=== PATIENT | female | born 1945 | race Caucasian/White ===

== ENCOUNTER → 2020-10-20 | Outpatient (CLI) | payer MEDICARE ==
--- NOTE | 2020-10-20 13:11 | Diagnostic Imaging Report ---
INDICATION: GREATER TROCHANTERIC BURSITIS OF RIGHT HIP TECHNIQUE: 2 views of the right hip. CORRELATION STUDY: None FINDINGS: Mild joint space narrowing through the hip. This is most pronounced along the central and inferior aspect. Mild osteophyte formation of the acetabulum. There is slight osteophyte formation greater trochanter. No acute fracture. Slight loss of the normal rounded contour of the superior medial aspect of femoral head likely chronic. Mild enthesopathy about the right iliac crest. IMPRESSION: 1. Negative for acute bony abnormality of the right hip. Mild multifocal degenerative changes about the hip are present. Dictated by: Dictated on workstation # [id number]
== END ==
LOC: RAD FS 11:04
PROVIDERS: ATTEND Family Medicine
DX: M16.11 Unilateral primary osteoarthritis, right hip (principal); M70.61 Trochanteric bursitis, right hip
CPT/HCPCS: 73502

== ENCOUNTER → 2020-11-10 | Outpatient (CLI) | payer MEDICARE ==
--- NOTE | 2020-11-10 18:15 | Diagnostic Imaging Report ---
EXAMINATION: Abdomen 1 view HISTORY: Diarrhea. COMPARISON: None available. FINDINGS: Bowel gas pattern is normal. No dilated bowel is seen. Right hemidiaphragm and lower pelvis are excluded from the [id number]-sx-lerf. No free air is seen within the jeuhs-bq-fllo. IMPRESSION: 1. Normal bowel gas pattern. Dictated by: Dictated on workstation # [id number]
== END ==
LOC: RAD FS 14:25
PROVIDERS: ATTEND Family Medicine
DX: R19.7 Diarrhea, unspecified (principal)
CPT/HCPCS: 74018

== ENCOUNTER → 2020-12-01 | Outpatient (CLI) | payer MEDICARE ==
--- NOTE | 2020-12-01 12:15 | Diagnostic Imaging Report ---
PROCEDURE: CT abdomen and pelvis without contrast. TECHNIQUE: Multiple contiguous axial images were obtained through the abdomen and pelvis without the use of intravenous contrast. Auto Exposure Controls were utilized during the CT exam to meet ALARA standards for radiation dose reduction. INDICATION: Abdominal pain Study is limited by motion. There are several low-density nodules in the liver with the largest in the posterior aspect of right lobe reaching 1.3 cm in diameter. Assessment of the gallbladder is limited however there is no significant distention or pericholecystic fluid. No pancreatic abnormality identified. There is mild enlargement of left adrenal gland which could be due to hyperplasia. Right adrenal gland is unremarkable in appearance. There may be a subcentimeter angiomyolipoma in the lateral aspect of the right kidney. There is no hydronephrosis or solid renal mass identified. No pancreatic mass or ductal dilatation is identified. There is an approximate 4 cm nodular focus along the posterior aspect of the upper gastric body. No free fluid is seen within the abdomen or pelvis. There is no focal inflammation. There is mild aortoiliac atherosclerotic calcification. Numerous diverticula are seen in the sigmoid colon. Unopacified bladder is unremarkable. There is no evidence of pathologically enlarged adenopathy. Note is made of mild compression fracture deformity of L4 vertebral body with sclerosis in the inferior endplate indicating possible old nature. IMPRESSION: No definite acute abnormality seen on limited study. There is a 4 cm nodular focus along the posterior aspect of the upper stomach. Considerations include leiomyoma or intestinal stromal tumor. This could be further assessed with endoscopy with possible biopsy if indicated. Dictated by: Dictated on workstation # [id number]
== END ==
LOC: RAD FS 11:45
PROVIDERS: ATTEND Family Medicine
DX: R63.4 Abnormal weight loss (principal); K31.89 Other diseases of stomach and duodenum
CPT/HCPCS: 74176

== ENCOUNTER 2020-12-08 08:02 | Outpatient (RCR) | payer MEDICARE ==
[~2020-12-08] VITALS: Ht 157.5 cm; Wt 59.5 kg
[2020-12-08] MEDS ORDERED: FLUO20CA46 PO (09:55)
[2020-12-08] MEDS ORDERED: BETA1TAB15 PO (09:55)
[2020-12-08] MEDS ORDERED: RISP0.5T65 PO (09:55)
[2020-12-08] MEDS ORDERED: ATOR40TA70 PO (09:55)
[2020-12-08] MEDS ORDERED: LORA-405 PO (09:55)
[2020-12-08] MEDS ORDERED: OMEP20TA7 PO (09:55)
[2020-12-08] MEDS ORDERED: FENO145T26 PO (09:55)
[2020-12-08] MEDS ORDERED: ATEN50TA PO (09:55)
== END 2020-12-08 12:07 | disposition home or self-care (01) ==
LOC: PREOP 08:02 → EDSTATUS 12:00 → PREOP 12:07
PROVIDERS: ATTEND Surgery
DX: Z01.818 Encounter for other preprocedural examination (principal)

== ENCOUNTER → 2020-12-10 | Outpatient (CLI) | payer MEDICARE ==
[~2020-12-10] MED LIST: ATEN50TA PO; ATOR40TA70 PO; BETA1TAB15 PO; FENO145T26 PO; FLUO20CA46 PO; LORA-405 PO; OMEP20TA7 PO; RISP0.5T65 PO
== END ==
LOC: LAB FS 10:10
PROVIDERS: ATTEND Surgery
DX: Z01.812 Encounter for preprocedural laboratory examination (principal); K62.89 Other specified diseases of anus and rectum; R93.5 Abnormal findings on diagnostic imaging of other abdominal regions, including retroperitoneum; Z20.822 Contact with and (suspected) exposure to COVID-19
CPT/HCPCS: 87635

== ENCOUNTER 2020-12-12 11:11 | Day surgery (SDC) | payer MEDICARE ==
[~2020-12-12] VITALS: Ht 157.5 cm; Wt 59.5 kg
[2020-12-12] MEDS ORDERED: LACTATED RINGERS 1,000 ML IV ONE (11:21)
[2020-12-12] MEDS ORDERED: LACTATED RINGERS 1,000 ML IV STA (11:48)
[2020-12-12] MEDS ORDERED: PROPOFOL INJECTION 50 ML IV ONE (11:54)
[2020-12-12] MEDS ORDERED: ESMOLOL 100 MG/10 ML (BREVIBLOC) VIAL ONE (11:58)
[2020-12-12] MEDS ORDERED: HURRICAINE EXT TUBE (BENZOCAINE) XX PRN (12:00)
--- NOTE | 2020-12-12 12:01 | Progress Note-Pre Operative ---
Pre-Operative Progress Note H&P Reviewed The H&P was reviewed, patient examined and no changes noted. Time Seen by Provider: 11:30 Date H&P Reviewed: Dec 12, 2020 Time H&P Reviewed: 11:30 Pre-Operative Diagnosis: Weight loss, rectal pain, GERD CHAS CHAN DO Dec 12, 2020 12:01
[2020-12-12 12:18] VITALS: BP 138/92
[2020-12-12 12:50] VITALS: BP 117/58
[2020-12-12 12:55] VITALS: BP 112/63
[2020-12-12 13:00] VITALS: BP 157/76
--- NOTE | 2020-12-12 13:00 | Anesthesia-General Post-Op ---
MAC Patient Condition Mental Status/LOC: Same as Preop Cardiovascular: Satisfactory Nausea/Vomiting: Absent Respiratory: Satisfactory Pain: Controlled Complications: Absent Post Op Complications Complications None Follow Up Care/Instructions Patient Instructions None needed. Anesthesiology Discharge Order Discharge Order Patient is doing well, no complaints, stable vital signs, no apparent adverse anesthesia problems. No complications reported per nursing. CARLENE VINSON CRNA Dec 12, 2020 13:00
--- NOTE | 2020-12-12 13:16 | Progress Note-Post Operative ---
Post-Operative Progess Note Surgeon (s)/Flame Annealing Machine Operator (s) Surgeon CHAS CHAN DO Flame Annealing Machine Operator: none Pre-Operative Diagnosis Weight loss, rectal pain, GERD Post-Operative Diagnosis Gastritis Hiatal hernia Rodriguez's esophagus Colon Polyps Diverticulosis internal hemorrhoids Procedure & Operative Findings Date of Procedure 12/12/20 Procedure Performed/Findings EGD with bx Colon with snare Anesthesia Type IV sedation by COMPENSATION INTERN Estimated Blood Loss Estimated blood loss (mL): scant Specimens/Packing Specimens Removed antral bx body of stomach bx ?? ulcer bx GE jxn bx Esophageal bx Transverse colon polyp x 2 ascending colon polyp sigmoid polyp CHAS CHAN DO Dec 12, 2020 13:16
--- NOTE | 2020-12-12 13:17 | Endoscopy Discharge Instruct ---
Endo Procedure/Findings Findings 1.: Hiatal Hernia, Gastritis 2.: Rodriguez's Esophagus 3.: Polyp 4.: Diverticulosis, Internal Hemorrhoids Discharge Instructions - Activity: You might feel a little sleepy until tomorrow. This is due to the medicine you received to relax you. Until tomorrow, you should: NOT drive a car, operate machinery or power tools. NOT drink any alcoholic beverages. NOT make any important decisions or sign importortant papers. Do not return to work until tomorrow, unless otherwise instructed. Resume previous activities tomorrow. Diet: Start by taking liquids. If you tolerate liquids, advance to solid food. 1.: EGD in 6-8 weeks 2.: Colonoscopy in 1 year Notify Physician - If you experience excessive bleeding, unusual abdominal pain, fever, or chest pain, contact your doctor immediately. CHAS CHAN DO Dec 12, 2020 13:17
[2020-12-12 13:30] VITALS: BP 140/82
[2020-12-12 13:40] VITALS: BP 140/82
--- NOTE | 2020-12-13 00:56 | OPERATIVE REPORT ---
DATE OF SERVICE: PREOPERATIVE DIAGNOSES: Rectal pain, weight loss, upper abdominal pain and questionable mass seen on CAT scan behind the stomach. POSTOPERATIVE DIAGNOSES: Gastritis, questionable gastric polyp, large hiatal hernia, Rodriguez's esophagus. She also had colon polyps, diverticula and internal hemorrhoids. PROCEDURE: 1. Colonoscopy with snare polypectomy. 2. EGD with biopsy. SURGEON: Vikram Williamson DO OPERATOR/ASSISTANT FOREMAN: None. ANESTHESIA: IV sedation by the DRAPERY AND UPHOLSTERY MEASURER. SPECIMEN: Biopsy from the antrum, biopsy of body of stomach, questionable gastric polyp, biopsy from the GE junction and biopsy from the esophagus as well as two polyps in transverse colon, one from the ascending colon and one from the sigmoid colon. BLOOD LOSS: Scant. FLUIDS: Per anesthesia. POSTOPERATIVE CONDITION: Stable. INDICATION FOR PROCEDURE: The patient is a 74-year-old female who has been having rectal pain, weight loss as well as some upper abdominal pain and a questionable mass seen on CT near the stomach. FINDINGS: The patient had multiple polyps in the colon, one rather large one, she had lot of diverticula and internal hemorrhoids in the stomach. She had some gastritis as well as a large hiatal hernia and what looked like a possible polyp in the stomach and then Rodriguez's esophagus. PROCEDURE NOTE: After informed consent was obtained, the patient was brought to the endoscopy suite, placed in bed in left lateral decubitus position. She was administered IV sedation by the DRAPERY AND UPHOLSTERY MEASURER who then monitored her vitals the entire time, heart rate, blood pressure and pulse ox. We started with the colonoscopy. Placed the scope in, pushed all the way to [address] in, noted a polyp in the transverse colon, did a snare polypectomy and then just a few centimeters on encountered another polyp and did another snare polypectomy. Pushed all the way into the cecum, took a picture of appendiceal orifice, noted the ileocecal valve and what looked like another diverticula here and then just outside the cecum, saw another polyp in the ascending colon, took a picture of this and then did a snare polypectomy, then insufflating to just make sure we looked at all the peck circumferentially. Pulled the scope up into in the ascending colon to the hepatic flexure, then down the transverse colon, splenic flexure, into the descending colon, again saw a lot of diverticula and then into the sigmoid. In the sigmoid, saw a large polyp, able to get the snare around this and then had to suction this up and pulled the scope all the way out to get the polyp out and then pushed the scope back in and then continued down into the rectum, retroflexed in the rectal vault, saw some minimal internal hemorrhoids, took a picture of this and then removed the scope. Changed gloves, changed scopes. Went up and started with the EGD, placing scope down the mouth through the esophagus and into the stomach, noted some gastritis, pushed into the duodenum. Duodenum looked fine. Pulled back, did a biopsy of the antrum. Retroflexed the scope, saw a large hiatal hernia and then did a biopsy of body of stomach and then when I un-retroflex, saw what looked like a possible polyp and did a biopsy of this. Pulled the scope into the GE junction, did a biopsy and then pulled it a little bit further up and felt pretty severe changes in the esophagus, this looked like Rodriguez's esophagus, took pictures and then did a biopsy. The upper portion of the esophagus looked fine, pulled the scope out. The patient tolerated the procedure, recovered in endoscopy suite. Job ID: [id number] DocumentID: [id number] Dictated Date: 12/12/2020 17:26:07 Publication Director Date: 12/13/2020 00:55:15 Dictated By: VIKRAM WILLIAMSON DO
== END 2020-12-12 13:40 | disposition home or self-care (01) ==
LOC: ENDO 11:11
PROVIDERS: ATTEND Surgery
DX: K44.9 Diaphragmatic hernia without obstruction or gangrene (principal); D12.3 Benign neoplasm of transverse colon; D12.2 Benign neoplasm of ascending colon; D12.5 Benign neoplasm of sigmoid colon; K29.50 Unspecified chronic gastritis without bleeding; K22.70 Barrett's esophagus without dysplasia; K57.30 Diverticulosis of large intestine without perforation or abscess without bleeding; K64.8 Other hemorrhoids; F17.210 Nicotine dependence, cigarettes, uncomplicated; K62.89 Other specified diseases of anus and rectum; Z79.899 Other long term (current) drug therapy; Z88.0 Allergy status to penicillin; Z91.041 Radiographic dye allergy status
CPT/HCPCS: 88305; 88342

== ENCOUNTER → 2021-01-17 | Outpatient (CLI) | payer MEDICARE | LOC: LAB FS 10:02 | PROVIDERS: ATTEND Surgery | DX: Z01.89 Encounter for other specified special examinations (principal); B96.81 Helicobacter pylori [H. pylori] as the cause of diseases classified elsewhere | CPT/HCPCS: 36415; 87338 ==

== ENCOUNTER → 2021-02-02 | Outpatient (CLI) | payer MEDICARE | LOC: LAB FS 10:00 | PROVIDERS: ATTEND Orthopaedic Surgery Orthopaedic Trauma | DX: Z01.812 Encounter for preprocedural laboratory examination (principal) | CPT/HCPCS: 87635 ==

== ENCOUNTER 2021-04-06 10:04 | Emergency (ER) | payer MEDICARE ==
[~2021-04-06] VITALS: Ht 157.5 cm; Wt 57.6 kg
[2021-04-06 10:09] VITALS: BP 118/47
--- NOTE | 2021-04-06 10:16 | ED GI ---
General Chief Complaint: Abdominal/GI Problems Stated Complaint: BOWEL CONSTIPATION History of Present Illness Date Seen by Provider: Apr 06, 2021 Time Seen by Provider: 10:12 Initial Comments 75-year-old female presents with constipation. Patient reports that she had a back surgery on her L4 vertebrae 1 week ago and has been taking a lot of pain medication. That she is also taken a Dulcolax oral suppository. She reports however she is not had a bowel movement due to a hard stool since her surgery. She is complaining of some rectal pain and fullness along with some abdominal pain. She has no vomiting. Patient also would like to have her chest dressing evaluated and changed if needed. She denies fevers chills or other systemic complaints. Allergies and Home Medications Allergies Coded Allergies: iodine (Unverified Allergy, Intermediate, 12/08/20) Penicillins (Unverified Allergy, Mild, 12/08/20) Home Medications Atenolol 50 Mg Tablet, 50 MG PO DAILY, (Reported) Atorvastatin Calcium 40 Mg Tablet, 40 MG PO DAILY, (Reported) Fenofibrate Nanocrystallized 145 Mg Tablet, 145 MG PO DAILY, (Reported) Fluoxetine HCl 20 Mg Capsule, 20 MG PO DAILY, (Reported) Lorazepam 1 Mg Tablet, 1 MG PO BID, (Reported) Omeprazole 20 Mg Tablet.dr, 20 MG PO DAILY, (Reported) Risperidone 0.5 Mg Tablet, 0.5 MG PO BID, (Reported) Vit A/Vit C/Vit E/Zinc/Copper 1 Each Tablet, 1 EACH PO BID, (Reported) Patient Home Medication List Home Medication List Reviewed: Yes Review of Systems Review of Systems Constitutional: No chills, No fever EENTM: No Symptoms Reported Respiratory: No Symptoms Reported Cardiovascular: No Symptoms Reported Gastrointestinal: See HPI, Constipated Genitourinary: No Symptoms Reported Musculoskeletal: no symptoms reported Skin: no symptoms reported Psychiatric/Neurological: No Symptoms Reported Endocrine: No Symptoms Reported Past Krqfeil-Nynkke-Xlcmhm Hx Seasonal Allergies Seasonal Allergies: No Past Medical History Surgeries: Yes Oophorectomy Respiratory: No Cardiac: Yes Hypertension Neurological: No Female Reproductive Disorders: Ovarian Cyst Genitourinary: No Gastrointestinal: Yes (WT. LOSS, RECTAL PAIN/BLEEDING) Musculoskeletal: No Endocrine: No HEENT: No Cancer: No Psychosocial: Yes Anxiety, Depression Integumentary: No Blood Disorders: No Physical Exam Vital Signs Capillary Refill : Height/Weight/BMI Height: '" Weight: lbs. oz. kg; 23.98 BMI Method: General Appearance: no apparent distress HEENT: PERRL/EOMI Neck: full range of motion, supple Respiratory: lungs clear, normal breath sounds Cardiovascular: normal peripheral pulses, regular rate, rhythm Gastrointestinal: non tender, soft Rectal: other (Declined following manual disimpaction by the nurse) Extremities: normal range of motion, non-tender Back: other (Dressing intact clean and dry over incision with no obvious complications, patient with back brace when not having dressing evaluated) Neurologic/Psychiatric: alert, normal mood/affect, oriented x 3 Progress/Results/Core Measures Results/Orders My Orders Orders - AR BONILLA DO Bisacodyl Suppository (Dulcolax Supposit (04/06/21 10:21) Na Phos/Na Biphos Enema (Fleet Enema Justin (04/06/21 10:21) Progress Progress Note : Progress Note Patient had a digital disimpaction by the nurse. She then was able to have a very large bowel movement after the impaction was removed. Patient feels significantly better. Following the bowel movement, patient was offered x-ray to ensure no other abdominal complications but declined. Patient is feeling significantly better. Her wounds were examined with clean dry intact dressing with no need for further treatment. Patient stable and ready to be discharged home. I did recommend she add either MiraLAX or milk of magnesium to her stool regiment along with plenty of fluids and ambulation. She is to follow-up with her back surgeon as instructed per them. Departure Impression Primary Impression: Constipation Qualified Codes: K59.03 - Drug induced constipation Additional Impression: Encounter for wound re-check Disposition: HOME, SELF-CARE Condition: Stable Departure-Patient Inst. Referrals: SELF,BECCA COLBY (PCP/Family) Primary Care Physician Patient Instructions: Constipation, Adult (DC), Dealing with Constipation from the Drugs You Take Add. Discharge Instructions: Follow-up with your surgeon as directed per them Add MiraLAX or milk of magnesia as directed on package, frequent ambulation and drink plenty of fluids. Follow-up with your primary care provider in the next couple days for recheck of symptoms and continuation of care All discharge instructions reviewed with patient and/or family. Voiced understanding. AR BONILLA DO Apr 06, 2021 10:16
[2021-04-06] MEDS ORDERED: BISACODYL 10 MG SUPP (DULCOLAX) ONE (10:21)
[2021-04-06] MEDS ORDERED: FLEET ENEMA ADULT 1 EA BTL ONE (10:21)
== END 2021-04-06 11:00 | disposition home or self-care (01) ==
LOC: EDUNIT# 10:04 → ER FS 10:06
DX: K59.00 Constipation, unspecified (principal); I10 Essential (primary) hypertension; F41.9 Anxiety disorder, unspecified; F32.9 Major depressive disorder, single episode, unspecified; Z98.890 Other specified postprocedural states; Z79.899 Other long term (current) drug therapy; Z48.01 Encounter for change or removal of surgical wound dressing
CPT/HCPCS: 99282

== ENCOUNTER 2021-04-11 16:00 | Inpatient (IN) | payer MEDICARE ==
[~2021-04-11] VITALS: Ht 157.5 cm; Wt 66.2 kg
[2021-04-11] MEDS ORDERED: LACTATED RINGERS IV PRN (16:15)
[2021-04-11] MEDS ORDERED: ACETAMINOPHEN 500 MG TAB (TYLENOL) PO PRN (16:15)
--- NOTE | 2021-04-11 16:19 | ED General ---
General Chief Complaint: General Problems/Pain Stated Complaint: POST OP,LETHARGY,NO APPETITE Source of Information: Patient Exam Limitations: No Limitations (ISELA STOREY APRN) History of Present Illness Date Seen by Provider: Apr 11, 2021 Time Seen by Provider: 16:17 Initial Comments To ER by private vehicle accompanied by family with reports that she had low back surgery on 04/06/[address] William Reece at [facility]. She has not been eating or drinking well. Timing/Duration: 1-2 Days Severity: Moderate (ISELA STOREY APRN) Allergies and Home Medications Allergies Coded Allergies: iodine (Unverified Allergy, Intermediate, 12/08/20) Penicillins (Unverified Allergy, Mild, 12/08/20) Home Medications Atenolol 50 Mg Tablet, 50 MG PO DAILY, (Reported) Atorvastatin Calcium 40 Mg Tablet, 40 MG PO DAILY, (Reported) Fenofibrate Nanocrystallized 145 Mg Tablet, 145 MG PO DAILY, (Reported) Fluoxetine HCl 20 Mg Capsule, 20 MG PO DAILY, (Reported) Lorazepam 1 Mg Tablet, 1 MG PO BID, (Reported) Omeprazole 20 Mg Tablet.dr, 20 MG PO DAILY, (Reported) Risperidone 0.5 Mg Tablet, 0.5 MG PO BID, (Reported) Vit A/Vit C/Vit E/Zinc/Copper 1 Each Tablet, 1 EACH PO BID, (Reported) Patient Home Medication List Home Medication List Reviewed: Yes (ISELA STOREY APRN) Review of Systems Review of Systems Constitutional: see HPI, malaise, weakness EENTM: see HPI Respiratory: no symptoms reported Cardiovascular: no symptoms reported Genitourinary: no symptoms reported Musculoskeletal: no symptoms reported Skin: no symptoms reported Psychiatric/Neurological: No Symptoms Reported Hematologic/Lymphatic: No Symptoms Reported (ISELA STOREY APRN) Past Rcghfkw-Tlzfyd-Szyqfw Hx Seasonal Allergies Seasonal Allergies: No (ISELA STOREY APRN) Past Medical History Surgeries: Yes Oophorectomy Respiratory: No Cardiac: Yes Hypertension Neurological: No Female Reproductive Disorders: Ovarian Cyst Genitourinary: No Gastrointestinal: Yes (WT. LOSS, RECTAL PAIN/BLEEDING) Musculoskeletal: No Endocrine: No HEENT: No Cancer: No Psychosocial: Yes Anxiety, Depression Integumentary: No Blood Disorders: No (ISELA STOREY APRN) Physical Exam Vital Signs Vital Signs - First Documented 04/11/21 16:20 Temp 38.7 Pulse 88 Resp 20 B/P (MAP) 130/66 (87) Pulse Ox 93 (ALEX ROOT MD) Vital Signs Capillary Refill : (ISELA STOREY APRN) Height, Weight, BMI Height: '" Weight: lbs. oz. kg; 23.00 BMI Method: General Appearance: No Apparent Distress, WD/WN, Thin, Other (Febrile at 101.6. Tachypneic with a respiratory rate in the 30s. Oxygen saturation 95% room air. Heart rate 99 blood pressure 118/61. She is delirious, thinks the month is December. However she does know that she is at the hospital in [place].) Eyes: Bilateral Eye Normal Inspection, Bilateral Eye PERRL, Bilateral Eye EOMI Neck: Full Range of Motion, Normal Inspection Respiratory: No Accessory Muscle Use, No Respiratory Distress, Other (Tachypnea) Cardiovascular: Regular Rate, Rhythm, Normal Peripheral Pulses Gastrointestinal: Normal Bowel Sounds, Non Tender, Soft Back: Other (incision dressings clean dry intact no drainage no erythema dressings clean. ) Extremity: Normal Capillary Refill, Normal Inspection Neurologic/Psychiatric: Alert, Oriented x3 Skin: Normal Color, Warm/Dry (ISELA STOREY APRN) Focused Exam Sepsis Stage: Sepsis Possible Source: Genitouriary (ISELA STOREY APRN) Lactate Level 04/11/21 16:20: Lactic Acid Level 1.45 (ALEX ROOT MD) Time of Focused Exam: 18:15 Respiratory: Normal Breath Sounds, No Accessory Muscle Use Cardiovascular: Regular Rate, Rhythm, Normal Peripheral Pulses Capillary Refill: Less Than 3 Seconds Skin: normal color, warm/dry (ISELA STOREY APRN) Lactic Acid Level Laboratory Tests Test 04/11/21 16:20 Lactic Acid Level 1.45 MMOL/L (0.50-2.00) (ALEX ROOT MD) Within 3hrs of presentation: Admin fluids, Admin ABX, Blood cultures prior to ABX's, Focus exam, Lactate level (ISELA STOREY APRN) Progress/Results/Core Measures Suspected Sepsis SIRS Temperature: Pulse: Respiratory Rate: Laboratory Tests 04/11/21 16:20: White Blood Count 13.6H Blood Pressure / Mean: 04/11/21 16:20: Lactic Acid Level 1.45 Laboratory Tests 04/11/21 16:20: Creatinine 0.77, INR Comment 1.6H, Platelet Count 345, Total Bilirubin 0.7 (ISELA STOREY APRN) Results/Orders Lab Results Laboratory Tests Test 04/11/21 16:14 04/11/21 16:20 04/11/21 16:53 Range/Units SARS-CoV-2 RNA (RT-PCR) Not Detected Not Detecte White Blood Count 13.6 H 4.3-11.0 10^3/uL Red Blood Count 3.07 L 3.80-5.11 10^6/uL Hemoglobin 9.3 L 11.5-16.0 g/dL Hematocrit 29 L 35-52 % Mean Corpuscular Volume 94 80-99 fL Mean Corpuscular Hemoglobin 30 25-34 pg Mean Corpuscular Hemoglobin Concent 32 32-36 g/dL Red Cell Distribution Width 16.4 H 10.0-14.5 % Platelet Count 345 130-400 10^3/uL Mean Platelet Volume 10.1 9.0-12.2 fL Immature Granulocyte % (Auto) 1 % Neutrophils (%) (Auto) 85 H 42-75 % Lymphocytes (%) (Auto) 10 L 12-44 % Monocytes (%) (Auto) 4 0-12 % Eosinophils (%) (Auto) 0 0-10 % Basophils (%) (Auto) 0 0-10 % Neutrophils # (Auto) 11.5 H 1.8-7.8 10^3/uL Lymphocytes # (Auto) 1.3 1.0-4.0 10^3/uL Monocytes # (Auto) 0.6 0.0-1.0 10^3/uL Eosinophils # (Auto) 0.0 0.0-0.3 10^3/uL Basophils # (Auto) 0.0 0.0-0.1 10^3/uL Immature Granulocyte # (Auto) 0.2 H 0.0-0.1 10^3/uL Prothrombin Time 19.3 H 12.2-14.7 SEC INR Comment 1.6 H 0.8-1.4 Activated Partial Thromboplast Time 47 H 24-35 SEC Sodium Level 132 L 135-145 MMOL/L Potassium Level 3.9 3.6-5.0 MMOL/L Chloride Level 98 98-107 MMOL/L Carbon Dioxide Level 23 21-32 MMOL/L Anion Gap 11 5-14 MMOL/L Blood Urea Nitrogen 13 7-18 MG/DL Creatinine 0.77 0.60-1.30 MG/DL Estimat Glomerular Filtration Rate 73 BUN/Creatinine Ratio 17 Glucose Level 120 H 70-105 MG/DL Lactic Acid Level 1.45 0.50-2.00 MMOL/L Calcium Level 9.3 8.5-10.1 MG/DL Corrected Calcium 9.6 8.5-10.1 MG/DL Total Bilirubin 0.7 0.1-1.0 MG/DL Aspartate Amino Transf (AST/SGOT) 24 5-34 U/L Alanine Aminotransferase (ALT/SGPT) 15 0-55 U/L Alkaline Phosphatase 58 40-136 U/L Total Protein 7.3 6.4-8.2 GM/DL Albumin 3.6 3.2-4.5 GM/DL Urine Color ORANGE Urine Clarity SL CLOUDY Urine pH 6.0 5-9 Urine Specific [place]horn 1.020 1.016-1.022 Urine Protein TRACE H NEGATIVE Urine Glucose (UA) NEGATIVE NEGATIVE Urine Ketones NEGATIVE NEGATIVE Urine Nitrite NEGATIVE NEGATIVE Urine Bilirubin NEGATIVE NEGATIVE Urine Urobilinogen 4.0 < = 1.0 MG/DL Urine Leukocyte Esterase 1+ H NEGATIVE Urine RBC (Auto) TRACE-I NEGATIVE Urine RBC NONE /HPF Urine WBC 25-50 H /HPF Urine Squamous Epithelial Cells 2-5 /HPF Urine Renal Epithelial Cells NONE /HPF Urine Crystals NONE /LPF Urine Bacteria MODERATE H /HPF Urine Casts NONE /LPF Urine Mucus NEGATIVE /LPF Urine Yeast LARGE H /HPF Urine Culture Indicated CULTURE PENDING (ALEX ROOT MD) Vital Signs/I&O 04/11/21 04/11/21 16:20 16:57 Temp 38.7 38.8 Pulse 88 Resp 20 B/P (MAP) 130/66 (87) Pulse Ox 93 (ALEX ROOT MD) Vital Signs/I&O Capillary Refill : (ISELA STOREY APRN) Diagnostic Imaging Diagonstic Imaging: Xray Comments NAME: JOHNSON VILLAVICENCIO MED REC#: [id number] PT STATUS: REG ER : 1945 PHYSICIAN: ISELA STOREY APRN ADMIT DATE: 04/11/21/ER Draft Date of Exam:04/11/21 CHEST 1 VIEW, AP/PA ONLY EXAMINATION: Chest radiograph, portable AP view. DATE: 04/11/2021 5:01 PM INDICATION: 75-year-old female, chest and back pain. COMPARISON: None. FINDINGS: There is nonspecific airspace consolidation in the right perihilar region and right lung base. The left lung is grossly clear. Heart size and additional mediastinal contours are unremarkable. There is no identified pneumothorax or large pleural effusion. IMPRESSION: 1. Nonspecific right perihilar and right basilar airspace consolidation which may relate to aspiration, pneumonia, other alveolar consolidative process, and/or atelectasis. Dictated on workstation # [id number] Dict: 04/11/21 1706 Trans: 04/11/21 1710 CVB [id number] Interpreted by: DIANE LEGER MD Electronically signed by: (ISELA STOREY APRN) Departure Communication (Admissions) Time/Spoke to Admitting Phy: 18:[address] Hutchins on-call for Dr. Johnson who provides care with [facility]. Patient wishes to be full CODE STATUS. Will admit for sepsis secondary to UTI/right lower lobe pneumonia using cefepime empirically. (ISELA STOREY APRN) Impression Primary Impression: Urinary tract infection Qualified Codes: N30.00 - Acute cystitis without hematuria Additional Impressions: Pneumonia Qualified Codes: J18.9 - Pneumonia, unspecified organism Sepsis Disposition: ADMITTED INPATIENT Condition: Stable Admissions Decision to Admit Reason: Admit from ER (General) Decision to Admit/Date: Apr 11, 2021 Time/Decision to Admit Time: 18:15 (ISELA STOREY APRN) Departure-Patient Inst. Referrals: BECCA JOHNSON MD (PCP/Family) Primary Care Physician ATTENDING PHYSICIAN NOTE: I was physically present as attending physician in the emergency department during the care of this patient, but I was not directly involved in the decision making or delivery of care for this patient. (ALEX ROOT MD) ISELA STOREY APRN Apr 11, 2021 16:18 ALEX ROOT MD Apr 12, 2021 14:41
[2021-04-11] MEDS ORDERED: fentaNYL INJ 100 MCG/2 ML AMP IVP ONE (16:45)
[2021-04-11 16:51] LABS: ALBUMIN 3.6 GM/DL (3.2-4.5); POTASSIUM 3.9 MMOL/L (3.6-5.0)
[2021-04-11 16:52] LABS: BASOPHILS % (AUTO) 0 % (0-10); CALCIUM 9.3 MG/DL (8.5-10.1); EOSINOPHILS % (AUTO) 0 % (0-10); HEMATOCRIT 29 % (35-52); HEMOGLOBIN 9.3 g/dL (11.5-16.0); LYMPHOCYTES # (AUTO) 1.3 10^3/uL (1.0-4.0); LYMPHOCYTES % (AUTO) 10 % (12-44); MEAN CORPUSCULAR HEMOGLOBIN 30 pg (25-34); MEAN CORPUSCULAR HGB CONC 32 g/dL (32-36); MEAN CORPUSCULAR VOLUME 94 fL (80-99); MEAN PLATELET VOLUME 10.1 fL (9.0-12.2); MONOCYTES # (AUTO) 0.6 10^3/uL (0.0-1.0); MONOCYTES % (AUTO) 4 % (0-12); NEUTROPHILS # (AUTO) 11.5 10^3/uL (1.8-7.8); NEUTROPHILS % (AUTO) 85 % (42-75); PLATELET COUNT 345 10^3/uL (130-400); WHITE BLOOD COUNT 13.6 10^3/uL (4.3-11.0)
[2021-04-11 16:54] LABS: TOTAL PROTEIN 7.3 GM/DL (6.4-8.2)
[2021-04-11 16:55] LABS: BILIRUBIN,TOTAL 0.7 MG/DL (0.1-1.0); INR 1.6 (0.8-1.4); PROTHROMBIN TIME PATIENT 19.3 SEC (12.2-14.7)
[2021-04-11 16:57] LABS: CREATININE SERUM 0.77 MG/DL (0.60-1.30)
--- NOTE | 2021-04-11 17:11 | Diagnostic Imaging Report ---
EXAMINATION: Chest radiograph, portable AP view. DATE: 04/11/2021 5:01 PM INDICATION: 75-year-old female, chest and back pain. COMPARISON: None. FINDINGS: There is nonspecific airspace consolidation in the right perihilar region and right lung base. The left lung is grossly clear. Heart size and additional mediastinal contours are unremarkable. There is no identified pneumothorax or large pleural effusion. IMPRESSION: 1. Nonspecific right perihilar and right basilar airspace consolidation which may relate to aspiration, pneumonia, other alveolar consolidative process, and/or atelectasis. Dictated by: Dictated on workstation # [id number]
[2021-04-11 17:16] LABS: BILIRUBIN,URINE NEGATIVE (NEGATIVE); CLARITY,URINE SL CLOUDY; COLOR,URINE ORANGE; GLUCOSE, URINE (UA) NEGATIVE (NEGATIVE); KETONES,URINE NEGATIVE (NEGATIVE); LEUKOCYTE ESTERASE ,URINE 1+ (NEGATIVE); NITRITE,URINE NEGATIVE (NEGATIVE); PROTEIN,URINE TRACE (NEGATIVE)
[2021-04-11 17:37] LABS: BACTERIA,URINE MODERATE /HPF; WBC,URINE 25-50 /HPF; YEAST,URINE LARGE /HPF
[2021-04-11] MEDS ORDERED: cefTRIAXone 1,000 MG in WATER (STERILE) FOR INJECTION 10 ML IV ONE (18:30)
[2021-04-11] MEDS ORDERED: ONDANSETRON 4 MG/2 ML (SDV) Z0FRAN IV PRN (20:00)
[2021-04-11 20:31] VITALS: BP 104/58
[2021-04-11] MEDS: LACTATED RINGERS 1,000 ML IV SCH (20:31)
[2021-04-11] MEDS: DOCUSATE SODIUM 100 MG (COLACE) CAP PO SCH (20:31)
[2021-04-11] MEDS: fluCOnazole (DIFLUCAN) 100 MG TAB PO SCH (20:31)
[2021-04-11] MEDS: CEFEPIME 1,000 MG/SWFI 10 ML IV PUSH IV SCH ×2 (20:31)
[2021-04-11 21:43] VITALS: BP 104/58
[2021-04-11 23:29] VITALS: BP 115/57
[2021-04-12] VITALS (8 sets, daily range): BP systolic 107–132; BP diastolic 52–70
[2021-04-12] MEDS: RT-ALBUTEROL/IPRATROPIUM 3 ML (DUONEB) VIAL INH SCH ×4 (02:11→20:38)
[2021-04-12] MEDS: CEFEPIME 1,000 MG/SWFI 10 ML IV PUSH IV SCH ×8 (04:04→21:11)
[2021-04-12] MEDS: LACTATED RINGERS 1,000 ML IV SCH ×3 (04:04→21:18)
[2021-04-12 06:40] LABS: BASOPHILS % (AUTO) 0 % (0-10); EOSINOPHILS % (AUTO) 0 % (0-10); HEMATOCRIT 23 % (35-52); HEMOGLOBIN 7.3 g/dL (11.5-16.0); LYMPHOCYTES # (AUTO) 0.8 10^3/uL (1.0-4.0); LYMPHOCYTES % (AUTO) 10 % (12-44); MEAN CORPUSCULAR HEMOGLOBIN 30 pg (25-34); MEAN CORPUSCULAR HGB CONC 32 g/dL (32-36); MEAN CORPUSCULAR VOLUME 96 fL (80-99); MEAN PLATELET VOLUME 10.1 fL (9.0-12.2); MONOCYTES # (AUTO) 0.3 10^3/uL (0.0-1.0); MONOCYTES % (AUTO) 4 % (0-12); NEUTROPHILS # (AUTO) 6.5 10^3/uL (1.8-7.8); NEUTROPHILS % (AUTO) 85 % (42-75); PLATELET COUNT 276 10^3/uL (130-400); WHITE BLOOD COUNT 7.7 10^3/uL (4.3-11.0)
[2021-04-12 06:49] LABS: POTASSIUM 3.9 MMOL/L (3.6-5.0)
[2021-04-12 06:51] LABS: CALCIUM 8.9 MG/DL (8.5-10.1)
[2021-04-12 06:52] LABS: TOTAL PROTEIN 5.9 GM/DL (6.4-8.2)
--- NOTE | 2021-04-12 06:52 | History & Physical-Hospitalist ---
History of Present Illness HPI/Chief Complaint Chief complaint: Pneumonia with UTI History present illness: This is a very debilitated 75-year-old white female who presented to the ER with severe weakness and confusion and lethargy. Apparently she just had lumbar spine surgery by Dr. Reece in [place] on 03/30/2021 and was sent home and has not done well since then. She appears to be very pale and very debilitated. Her fianc is at the bedside and is heavily involved in her care and has many questions over short amount of time. Patient does not wear oxygen at home. Antibiotics were started to cover pneumonia and UTI sources. Patient has severe anemia 7.3 and appears to be very pale so we will give 1 unit of blood and she is willing to do that. Patient appears to be very declined and has cognitive deficits. Source: patient, RN/MD, old records, caregiver Exam Limitations: clinical condition Date Seen 04/12/21 Time Seen by a Provider: 11:00 Attending Physician Laurel Hutchins DO PCP Self,Js COLBY Referring Physician Date of Admission Apr 11, 2021 at 18:09 Home Medications & Allergies Home Medications Reviewed patient Home Medication Reconciliation performed by pharmacy medication reconciliations parts identification technician and/or nursing. Patients Allergies have been reviewed. Allergies Allergies Coded Allergies iodine (Unverified Allergy, Intermediate, 12/08/20) Penicillins (Unverified Allergy, Mild, 12/08/20) Past Bcywkoz-Xwxpat-Igcsal Hx Patient Social History Marrital Status: cohabiting Employed/Student: retired Tobacco Use?: Yes Tobacco type used: Cigarettes Smoking Status: Former Smoker Smokeless Tobacco Frequency: Never a User Use of E-Cig and/or Vaping dev: No Substance use?: No Alcohol Use?: No Pt feels they are or have been: No Immunizations Up To Date Date of Influenza Vaccine: Jul 10, 2020 First/Initial COVID19 Vaccinat: 10/28/20 Second COVID19 Vaccination Asher: 11/25/20 Tetanus Booster (TDap): Unknown Hepatitis A: No Hepatitis B: No Seasonal Allergies Seasonal Allergies: No Current Status status: No status: No Advance Directives: No Communicates: Verbally Primary Language: Cameroonian Preferred Spoken Language: Cameroonian Is interpretation needed?: No Sensory deficits: Vision impairment Implanted or Applied Medical D: None Past Medical History Surgeries: Oophorectomy, Orthopedic (Spine surgery 03/30/2021) COPD Hypertension Anxiety, Depression Blood Disorders: No Review of Systems Constitutional: see HPI, dizziness, malaise, weakness Gastrointestinal: constipation Musculoskeletal: back pain Physical Exam Physical Exam Vital Signs Vital Signs - First Documented 04/11/21 04/11/21 16:20 19:40 Temp 38.7 Pulse 88 Resp 20 B/P (MAP) 130/66 (87) Pulse Ox 93 O2 Delivery Nasal Cannula O2 Flow Rate 2.00 Capillary Refill : Less Than 3 Seconds Height, Weight, BMI Height: '" Weight: lbs. oz. kg; 24.02 BMI Method: General Appearance: No Apparent Distress, Chronically ill, Thin, Other (Pale and declined) Eyes: Right Eye Normal Inspection, Right Eye PERRL HEENT: PERRL/EOMI, Normal ENT Inspection, Pharynx Normal, Moist Mucous Membranes Neck: Full Range of Motion, Normal Inspection, Non Tender Respiratory: Chest Non Tender, Lungs Clear, No Accessory Muscle Use, No Respiratory Distress, Decreased Breath Sounds Cardiovascular: Regular Rate, Rhythm, No Edema, No Gallop, No JVD, No Murmur, Normal Peripheral Pulses Gastrointestinal: Normal Bowel Sounds, No Organomegaly, No Pulsatile Mass, Non Tender, Soft Back: Normal Inspection, No CVA Tenderness, No Vertebral Tenderness, Decreased Range of Motion Extremity: Normal Capillary Refill, Normal Inspection, Normal Range of Motion, Non Tender, No Calf Tenderness, No Pedal Edema Neurologic/Psychiatric: Alert, Oriented x3, No Motor/Sensory Deficits, Normal Mood/Affect Skin: Normal Color, Warm/Dry Lymphatic: No Adenopathy Results Results/Procedures Labs Laboratory Tests 04/11/21 16:20 04/12/21 06:05 Patient resulted labs reviewed. Assessment/Plan Admission Diagnosis Assessment: Pneumonia COPD Current smoker Recent lumbar spine surgery Severe anemia requiring 1 unit of blood today UTI Chronic debility Plan: Oxygen IV antibiotics Transfuse SCDs only due to severity of anemia Admission Status: Inpatient Order (span 2 midnights) Reason for Inpatient Admission: Pneumonia and UTI Diagnosis/Problems Diagnosis/Problems (1) Sepsis Status: Acute Qualifiers: Sepsis type: sepsis due to unspecified organism Severe sepsis acute organ dysfunction type: unspecified Severe sepsis shock status: without septic shock (2) Pneumonia Status: Acute Qualifiers: Pneumonia type: due to unspecified organism Laterality: right Lung location: lower lobe of lung Qualified Codes: J18.9 - Pneumonia, unspecified organism (3) Urinary tract infection Status: Acute Qualifiers: Urinary tract infection type: acute cystitis Hematuria presence: without hematuria Qualified Codes: N30.00 - Acute cystitis without hematuria (4) Constipation Status: Acute LUAREL HUTCHINS DO Apr 12, 2021 06:52
[2021-04-12 06:54] LABS: BILIRUBIN,TOTAL 0.5 MG/DL (0.1-1.0)
[2021-04-12 06:55] LABS: CREATININE SERUM 0.61 MG/DL (0.60-1.30)
[2021-04-12] MEDS: DOCUSATE SODIUM 100 MG (COLACE) CAP PO SCH ×4 (09:26→21:13)
[2021-04-12] MEDS: fluCOnazole (DIFLUCAN) 100 MG TAB PO SCH (09:26)
[2021-04-12] MEDS ORDERED: CALCIUM CARBONATE 500 MG (TUMS) TAB.CHEW PO PRN (13:45)
[2021-04-12] MEDS ORDERED: ALPRAZolam 0.25 MG (XANAX) TAB PO PRN (13:45)
[2021-04-12] MEDS ORDERED: ACETAMINOPHEN 325 MG TABLET PO PRN (13:45)
[2021-04-12] MEDS ORDERED: FUROSEMIDE 40 MG/4 ML INJ (LASIX) IVP ONE (13:45)
[2021-04-12] MEDS ORDERED: NS IV 500 ML 500 ML IV SCH (13:45)
[2021-04-12] MEDS ORDERED: MELATONIN 3 MG TABLET PO PRN (13:45)
[2021-04-12] MEDS ORDERED: BISACODYL 10 MG SUPP (DULCOLAX) PR PRN (13:45)
[2021-04-12] MEDS ORDERED: diphenhydrAMINE 25 MG TAB (BENADRYL) PO PRN (13:45)
[2021-04-12] MEDS: polyethylene glycoL POWDER 17 GM (MIRALAX) PACK PO SCH ×2 (13:52→21:14)
[2021-04-12] MEDS: SENNA W/DOCUSATE (SENOKOT S) TABLET PO SCH ×2 (13:52→21:11)
[2021-04-12] MEDS: LACTULOSE SYRUP 10GM/15ML (ENULOSE) 30ML UDC PO SCH ×2 (13:52→21:13)
[2021-04-12] MEDS ORDERED: FUROSEMIDE 40 MG/4 ML INJ (LASIX) ONE (16:03)
[2021-04-12] MEDS: ACETAMINOPHEN 500 MG TAB (TYLENOL) PO PRN (20:07)
[2021-04-13] MEDS: RT-ALBUTEROL/IPRATROPIUM 3 ML (DUONEB) VIAL INH SCH ×4 (02:31→21:16)
[2021-04-13] MEDS: LACTATED RINGERS 1,000 ML IV SCH ×3 (02:50→18:44)
[2021-04-13 04:00] VITALS: BP 100/56
[2021-04-13] MEDS: CEFEPIME 1,000 MG/SWFI 10 ML IV PUSH IV SCH ×8 (04:35→20:11)
[2021-04-13 06:07] LABS: BASOPHILS % (AUTO) 0 % (0-10); EOSINOPHILS % (AUTO) 0 % (0-10); HEMATOCRIT 26 % (35-52); HEMOGLOBIN 8.4 g/dL (11.5-16.0); LYMPHOCYTES # (AUTO) 0.7 10^3/uL (1.0-4.0); LYMPHOCYTES % (AUTO) 11 % (12-44); MEAN CORPUSCULAR HEMOGLOBIN 31 pg (25-34); MEAN CORPUSCULAR HGB CONC 32 g/dL (32-36); MEAN CORPUSCULAR VOLUME 94 fL (80-99); MEAN PLATELET VOLUME 10.3 fL (9.0-12.2); MONOCYTES # (AUTO) 0.3 10^3/uL (0.0-1.0); MONOCYTES % (AUTO) 4 % (0-12); NEUTROPHILS # (AUTO) 5.3 10^3/uL (1.8-7.8); NEUTROPHILS % (AUTO) 84 % (42-75); PLATELET COUNT 244 10^3/uL (130-400); WHITE BLOOD COUNT 6.3 10^3/uL (4.3-11.0)
--- NOTE | 2021-04-13 06:17 | Progress Note - Hospitalist ---
Subjective HPI/CC On Admission Date Seen by Provider: Apr 13, 2021 Time Seen by Provider: 10:00 Chief complaint: Pneumonia with UTI History present illness: This is a very debilitated 75-year-old white female who presented to the ER with severe weakness and confusion and lethargy. Apparently she just had lumbar spine surgery by Dr. Reeec in [place] on 03/30/2021 and was sent home and has not done well since then. She appears to be very pale and very debilitated. Her fianc is at the bedside and is heavily involved in her care and has many questions over short amount of time. Patient does not wear oxygen at home. Antibiotics were started to cover pneumonia and UTI sources. Patient has severe anemia 7.3 and appears to be very pale so we will give 1 unit of blood and she is willing to do that. Patient appears to be very declined and has cognitive deficits. Subjective/Events-last exam Pt doing a lot better Hgb 8.4 after one unit of blood Overall improved Reschedule the appointment with Dr. Reece that was for tomorrow Oxygen is maintained PT and OT ordered Fianc at the bedside Pt appears to be very chronically disabled Review of Systems General: Fatigue, Malaise Focused Exam Lactate Level 04/11/21 16:20: Lactic Acid Level 1.45 Time of Focused Exam: 18:15 Objective Exam Vital Signs Vital Signs Date Time Temp Pulse Resp B/P (MAP) Pulse Ox O2 Delivery O2 Flow Rate FiO2 04/14/21 02:48 86 Nasal Cannula 3.00 04/14/21 00:25 36.8 102 26 129/69 (89) Capillary Refill : Less Than 3 Seconds General Appearance: No Apparent Distress, WD/WN, Chronically ill Respiratory: Lungs Clear, Normal Breath Sounds Cardiovascular: Regular Rate, Rhythm Neurologic/Psychiatric: Alert, Oriented x3 Results/Procedures Lab Laboratory Tests 04/13/21 05:50 04/13/21 05:55 Patient resulted labs reviewed. Assessment/Plan Assessment and Plan Assess & Plan/Chief Complaint Assessment: Pneumonia COPD Current smoker Recent lumbar spine surgery Severe anemia requiring 1 unit of blood today UTI Chronic debility Plan: Oxygen IV antibiotics Transfuse SCDs only due to severity of anemia 04/13/2021: Much improved status Continue antibiotics Continue therapy Will need home O2 Diagnosis/Problems Diagnosis/Problems (1) Sepsis Status: Acute Qualifiers: Sepsis type: sepsis due to unspecified organism Severe sepsis acute organ dysfunction type: unspecified Severe sepsis shock status: without septic shock (2) Pneumonia Status: Acute Qualifiers: Pneumonia type: due to unspecified organism Laterality: right Lung location: lower lobe of lung Qualified Codes: J18.9 - Pneumonia, unspecified organism (3) Urinary tract infection Status: Acute Qualifiers: Urinary tract infection type: acute cystitis Hematuria presence: without hematuria Qualified Codes: N30.00 - Acute cystitis without hematuria (4) Constipation Status: Acute STEPHANIE LUCERO DO Apr 13, 2021 06:17
[2021-04-13 06:37] LABS: ALBUMIN 2.7 GM/DL (3.2-4.5); BILIRUBIN,TOTAL 0.7 MG/DL (0.1-1.0); CALCIUM 8.9 MG/DL (8.5-10.1); CREATININE SERUM 0.6 MG/DL (0.60-1.30); POTASSIUM 3.6 MMOL/L (3.6-5.0); TOTAL PROTEIN 5.7 GM/DL (6.4-8.2)
[2021-04-13 07:20] VITALS: BP 120/55
--- NOTE | 2021-04-13 09:25 | Physical Therapy Evaluation ---
PT Evaluation-General Medical Diagnosis Admission Date Apr 11, 2021 at 18:09 Medical Diagnosis: weakness, confusion Onset Date: Apr 11, 2021 Therapy Diagnosis Therapy Diagnosis: impaired mobility, strength, endurance Precautions Precautions/Isolations: Fall Prevention, Standard Precautions Referral Physician: Laurel Hutchins DO Reason for Referral: Evaluation/Treatment Medical History Additional Medical History Past Medical History Surgeries: Oophorectomy, Orthopedic (Spine surgery 03/30/2021) COPD Hypertension Anxiety, Depression Reviewed History: Yes Social History Home: Single Level Current Living Status: Significant Other Entry Into Home: Stairs Without Railing PT Steps Into Home: 1 Prior Prior Level of Function SCALE: Activities may be completed with or without assistive devices. 1-Pjkjenfzuu-axpjkto completes the activity by him/herself with no assistance from a helper. 5-Set-up or Clean-up Assistance-helper sets up or cleans up; patient completes activity. [place] assists only prior to or following the activity. 4-Supervision or Touching Assistance-helper provides verbal cues and/or touching/steadying and/or contact guard assistance as patient completes activity. Assistance may be provided throughout the activity or intermittently. 3-Partial/Moderate Assistance-helper does LESS THAN HALF the effort. [place] lifts, holds or supports trunk or limbs, but provides less than half the effort. 2-Substantial/Maximal Assistance-helper does MORE THAN HALF the effort. [place] lifts or holds trunk or limbs and provides more than half the effort. 7-Btrvmugio-rkcard does ALL the effort. Patient does none of the effort to complete the activity. Or, the assistance of 2 or more helpers is required for the patient to complete the activity. If activity was not attempted, code reason: 7-Patient Refused. 9-Not Applicable-not attempted and the patient did not perform the activity before the current illness, exacerbation or injury. 10-Not Attempted due to Environmental Limitations-(lack of equipment, weather restraints, etc.). 88-Not Attempted due to Medical Conditions or Safety Concerns. Bed Mobility: 6 Transfers (B,C,W/C): 6 Gait: 6 Stairs: 6 Indoor Mobility (Ambulation): Independent Stairs: Independent PT Evaluation-Current Subjective Patient in bed pre tx, agrees to PT, has 2/10 pain in right hip area. Patient had back surgery approx 2 weeks ago, has a back brace. Pt/Family Goals to be independent at home Objective Patient Orientation: Person, Confused, Place Attachments: Oxygen, IV ROM/Strength ROM Lower Extremities WNL Strength Lower Extremities 4/5 gross BLE Sensory Hearing: Functional Sensation Right Lower Extremit: Intact Sensation Left Lower Extremity: Intact Transfers Roll Left to Right (QC): 3 Lying to Sitting/Side of Bed(Q: 3 Sit to Stand (QC): 4 Chair/Pln-lv-Ocxag Xfer(QC): 4 Patient educated on log roll for supine to sit, mod assist for supine to sit, min assist to roll Gait Does the Patient Walk?: Yes Mode of Locomotion: Walk Anticipated Mode of Locomotion: Walk Walk 10 feet (QC): 4 Walk 50 ft with 2 Turns(QC): 4 Distance: 60' Gait Assistive Device: FWW Comments/Gait Description slow, very short steps but not a shuffling gait, initially slightly retropulsive with standing but recovered once she started walking Balance Sitting Static: Fair Sitting Dynamic: Fair Standing Static: Fair Standing Dynamic: Fair Treatment BLE seated exercises x20 (AP, LAQ) Assessment/Needs Patient in recliner post tx with nurse call, phone, tray, all needs met. SO in room with her and states he will be with her all day, patient intructed to call nurse if she needs to get up. Patient has impaired mobility, strength, endurance. Patient needs mod assist for supine to sit but just CGA for tr ansfers and ambulation. Needs back brace on when out of bed. Rehab Potential: Fair PT Driller'S Assistant Goals Alf Goals PT Alf Goals Time Frame: Apr 20, 2021 Roll Left & Right (QC): 5 Sit to Lying (QC): 4 Lying-Sitting on Side/Bed(QC): 4 Sit to Stand (QC): 5 Chair/Twm-io-Odsig Xfer(QC): 5 Walk 10 feet (QC): 5 Walk 50ft with 2 Turns (QC): 5 Walk 150 ft (QC): 5 PT Plan Problem List Problem List: Activity Tolerance, Functional Strength, Safety, Balance, Gait, Transfer, Bed Mobility, ROM Treatment/Plan Treatment Plan: Continue Plan of Care Treatment Plan: Bed Mobility, Education, Functional Activity Tosin, Functional Strength, Gait, Safety, Therapeutic Exercise, Transfers Treatment Duration: Apr 20, 2021 Frequency: 6 times per week Estimated Hrs Per Day: .25 hour per day Patient and/or Family Agrees t: Yes Safety Risks/Education Patient Education: Gait Training, Transfer Techniques, Correct Positioning, Reviewed Don/Doff Brace, Safety Issues Teaching Recipient: Patient Teaching Methods: Demonstration, Discussion Response to Teaching: Reinforcement Needed Discharge Recommendations Plan Patient will perform bed mobility and transfer training, balance and endurance training, functional strengthening, stair training, gait training, and education, to improve functional mobility and independence at home. Therapy Discharge Recommendati: Scheduled Assistance, Home & Family, Post Acute PT Time/GCodes Time In: 827 Time Out: 845 Total Billed Treatment Time: 18 Total Billed Treatment 1 visit BRIGETTE 18' MICHA RINALDI PT Apr 13, 2021 09:25
[2021-04-13] MEDS: fluCOnazole (DIFLUCAN) 100 MG TAB PO SCH (09:33)
[2021-04-13] MEDS: DOCUSATE SODIUM 100 MG (COLACE) CAP PO SCH ×4 (09:35→20:12)
[2021-04-13] MEDS: polyethylene glycoL POWDER 17 GM (MIRALAX) PACK PO SCH ×2 (09:35→20:12)
[2021-04-13] MEDS: SENNA W/DOCUSATE (SENOKOT S) TABLET PO SCH ×2 (09:36→20:11)
[2021-04-13] MEDS: LACTULOSE SYRUP 10GM/15ML (ENULOSE) 30ML UDC PO SCH ×2 (09:42→20:12)
[2021-04-13] MEDS ORDERED: DOCU100C37 PO (10:03)
[2021-04-13] MEDS ORDERED: HYDR-3820 PO (10:03)
[2021-04-13] MEDS ORDERED: VIT1CAPS44 PO (10:03)
[2021-04-13] MEDS ORDERED: LORA-407 PO (10:03)
[2021-04-13] MEDS ORDERED: CYCL10TA9 PO (10:03)
[2021-04-13] MEDS ORDERED: LANS15CA PO (10:03)
[2021-04-13] MEDS ORDERED: CHOL10007 PO (10:03)
[2021-04-13 11:53] VITALS: BP 138/65
--- NOTE | 2021-04-13 12:06 | Progress Note - Hospitalist ---
REUBEN OCONNELL MED STUDENT 04/13/21 1206: Subjective HPI/CC On Admission Date Seen by Provider: Apr 13, 2021 Time Seen by Provider: 08:45 Chief complaint: Pneumonia with UTI History present illness: This is a very debilitated 75-year-old white female who presented to the ER with severe weakness and confusion and lethargy. Apparently she just had lumbar spine surgery by Dr. Reece in [place] on 03/30/2021 and was sent home and has not done well since then. She appears to be very pale and very debilitated. Her fianc is at the bedside and is heavily involved in her care and has many questions over short amount of time. Patient does not wear oxygen at home. Antibiotics were started to cover pneumonia and UTI sources. Patient has severe anemia 7.3 and appears to be very pale so we will give 1 unit of blood and she is willing to do that. Patient appears to be very declined and has cognitive deficits. Subjective/Events-last exam Pt feels that her breathing is much improved today and feels better after the unit of blood yesterday. No complaints. Focused Exam Lactate Level 04/11/21 16:20: Lactic Acid Level 1.45 Time of Focused Exam: 18:15 Objective Exam Vital Signs Vital Signs Date Time Temp Pulse Resp B/P (MAP) Pulse Ox O2 Delivery O2 Flow Rate FiO2 04/13/21 09:56 93 Nasal Cannula 2.00 04/13/21 07:20 37.8 100 28 120/55 (76) Capillary Refill : Less Than 3 Seconds General Appearance: No Apparent Distress, Chronically ill HEENT: PERRL/EOMI Neck: Normal Inspection Respiratory: Normal Breath Sounds, No Accessory Muscle Use, No Respiratory Distress Cardiovascular: No Edema, Other (borderline tachycardia) Back: Other (back brace in place) Extremity: Non Tender, No Calf Tenderness Neurologic/Psychiatric: Alert, Oriented x3, Normal Mood/Affect Skin: Normal Color, Warm/Dry ( ) Results/Procedures Lab Laboratory Tests 04/13/21 05:50 04/13/21 05:55 Patient resulted labs reviewed. Assessment/Plan Assessment and Plan Assess & Plan/Chief Complaint sepsis Cefepime pneumonia UTI anemia-improved Hgb 8.4 today after transfusion of 1 unit PRBC yesterday LAUREL LUCERO DO 04/14/21 0516: Supervisory-Addendum Brief Verification & Attestation Participated in pt care: history, MDM, physical Personally performed: exam, history, MDM, supervision of care Care discussed with: Medical Student Procedures: n/a Results interpretation: Verified all documentation Verification and Attestation of Medical Student E/M Service A medical student performed and documented this service in my presence. I reviewed and verified all information documented by the medical student and made modifications to such information, when appropriate. I personally performed the physical exam and medical decision making. Laurel Lucero, Apr 14, 2021,05:16 REUBEN OCONNELL MED STUDENT Apr 13, 2021 12:06 LAUREL LUCERO DO Apr 14, 2021 05:16
[2021-04-13] MEDS: ACETAMINOPHEN 500 MG TAB (TYLENOL) PO PRN (12:17)
--- NOTE | 2021-04-13 12:56 | Occupational Therapy Eval ---
OT Evaluation-General/PLF Medical Diagnosis Admission Date Apr 11, 2021 at 18:09 Medical Diagnosis: Sepsis Onset Date: Apr 11, 2021 Therapy Diagnosis Therapy Diagnosis: Weakness, Decreased ADL skills Precautions Precautions/Isolations: Fall Prevention, Standard Precautions Weight Bear Status Back precautions, back brace on when up. Referral Physician: Laurel Hutchins DO Referral Reason: Activity Tolerance, Self Care, Evaluation/Treatment, Strengthening/ROM Medical History Pertinent Medical History: COPD, HTN Additional Medical History Anxiety, Depression Current History Pt. had lumbar surgery on 03-30-21. Went home. Became weak later on. Came to hospital. Found to have sepsis, pneumonia, UTI, and to be anemic. Reviewed History: Yes Social History Home: Single Level Current Living Status: Significant Other Entry Into Home: Stairs Without Railing Steps Into Home: 1 ADL-Prior Level of Function SCALE: Activities may be completed with or without assistive devices. 1-Kvhchcwlqe-oitozsw completes the activity by him/herself with no assistance from a helper. 5-Set-up or Clean-up Assistance-helper sets up or cleans up; patient completes activity. [place] assists only prior to or following the activity. 4-Supervision or Touching Assistance-helper provides verbal cues and/or touching/steadying and/or contact guard assistance as patient completes activity. Assistance may be provided throughout the activity or intermittently. 3-Partial/Moderate Assistance-helper does LESS THAN HALF the effort. [place] lifts, holds or supports trunk or limbs, but provides less than half the effort. 2-Substantial/Maximal Assistance-helper does MORE THAN HALF the effort. [place] lifts or holds trunk or limbs and provides more than half the effort. 5-Yaiqbymry-zbvzzx does ALL the effort. Patient does none of the effort to complete the activity. Or, the assistance of 2 or more helpers is required for the patient to complete the activity. If activity was not attempted, code reason: 7-Patient Refused. 9-Not Applicable-not attempted and the patient did not perform the activity before the current illness, exacerbation or injury. 10-Not Attempted due to Environmental Limitations-(lack of equipment, weather restraints, etc.). 88-Not Attempted due to Medical Conditions or Safety Concerns. ADL PLOF Comments Pt. was independent with daily tasks until recently when her back became worse. After surgery, required a lot of assistance at home from significant other. Self Care: Needed Some Help Functional Cognition: Unknown DME/Equipment Comments Pt. has walker. OT Current Status Subjective Pt. does not report pain level, but does wince with movement. Requires cues and continued encouragement during activity to sequence steps. Mental Status/Objective Patient Orientation: Person Attachments: IV, Oxygen ADL-Treatment Lower Body Dressing (QC): 2 (Per clinical judgement.) On/Off Footwear (QC): 2 Toileting Hygiene (QC): 2 (OT pulls down brief, cleanses pt., and pulls up br ief.) Other Treatments Significant other in room. Pt. agreeable to work with OT. Max encouragement throughout, as pt. will often "freeze" during ambulation or movement. Mod assist supine-sit. Max assist to don brace. Mod assist sit-stand and min assist to ambulate into bathroom. Pt. requires max cues to sequence how to sit onto toilet, as she would stand and not move body, reach back, or back up walker. After toileting, pt. ambulated to chair in room, and same sequence started over, in which pt. requires max cues. Significant other at side and provides continued support. Pt. up in chair and lunch arriving at end of treatment. S.O. to assist with feeding as needed. All needs met. Education OT Patient Education: Correct positioning, Modified ADL techniques, Progress toward Goal/Update tx plan, Purpose of tx/functional activities, Reviewed precautions, Rehab process, Transfer techniques Teaching Recipient: Patient, Significant Other Teaching Methods: Demonstration, Discussion Response to Teaching: Verbalize Understanding, Reinforcement Needed OT Short Term Goals Short Term Goals Time Frame: Apr 20, 2021 Eatin Oral hygiene: 4 Toileting hygiene: 3 Shower/bathe self: 3 Upper body dressin Lower body dressin Putting on/taking off footwear: 3 OT Digital Analyst Goals Digital Analyst Goals Time Frame: Apr 27, 2021 Eating (QC): 6 Oral Hygiene (QC): 5 Toileting Hygiene (QC): 4 Shower/Bathe Self (QC): 4 Upper Body Dressing (QC): 5 Lower Body Dressing (QC): 4 On/Off Footwear (QC): 4 Additional Goals: 1-Demonstrate ADL Tasks, 2-Verbalize Understanding, 3- ImproveStrength/Tosin 1=Demonstrate adherence to instructed precautions during ADL tasks. 2=Patient will verbalize/demonstrate understanding of assistive devices/modifications for ADL. 3=Patient will improve strength/tolerance for activity to enable patient to perform ADL's. OT Education/Plan Problem List/Assessment Assessment: Decreased Activ Tolerance, Dependent Transfers, Impaired Bed Mobi lity, Impaired Cognition, Impaired I ADL's, Impaired Self-Care Skills Discharge Recommendations Plan/Recommendations: Continue POC Therapy Discharge Recommendati: Post Acute OT Equpiment Recommendations-D/C: Hip Kit Treatment Plan/Plan of Care Treatment,Training & Education: Yes Patient would benefit from OT for education, treatment and training to promote independence in ADL's, mobility, safety and/or upper extremity function for ADL's. Plan of Care: ADL Retraining, Functional Mobility, UE Funct Exercise/Act Treatment Duration: Apr 27, 2021 Frequency: 5 times per week Estimated Hrs Per Day: .25 hour per day Agreement: Yes Rehab Potential: Fair Time/GCodes Start Time: 11:35 Stop Time: 12:00 Total Time Billed (hr/min): 25 Billed Treatment Time 1, EVH x 10minutes, ADL x 15minutes KAMILLA VEGA OT Apr 13, 2021 12:56
[2021-04-13 16:00] VITALS: BP 114/56
[2021-04-13 19:42] VITALS: BP 116/57
[2021-04-14 00:25] VITALS: BP 129/69
[2021-04-14] MEDS: CEFEPIME 1,000 MG/SWFI 10 ML IV PUSH IV SCH ×6 (02:42→16:31)
[2021-04-14] MEDS: LACTATED RINGERS 1,000 ML IV SCH ×3 (02:42→18:14)
[2021-04-14] MEDS: RT-ALBUTEROL/IPRATROPIUM 3 ML (DUONEB) VIAL INH SCH ×3 (02:47→14:57)
[2021-04-14 05:51] LABS: BASOPHILS % (AUTO) 0 % (0-10); EOSINOPHILS % (AUTO) 0 % (0-10); HEMATOCRIT 28 % (35-52); HEMOGLOBIN 9.1 g/dL (11.5-16.0); LYMPHOCYTES # (AUTO) 0.9 10^3/uL (1.0-4.0); LYMPHOCYTES % (AUTO) 12 % (12-44); MEAN CORPUSCULAR HEMOGLOBIN 30 pg (25-34); MEAN CORPUSCULAR HGB CONC 33 g/dL (32-36); MEAN CORPUSCULAR VOLUME 93 fL (80-99); MEAN PLATELET VOLUME 10.7 fL (9.0-12.2); MONOCYTES # (AUTO) 0.3 10^3/uL (0.0-1.0); MONOCYTES % (AUTO) 4 % (0-12); NEUTROPHILS # (AUTO) 6.7 10^3/uL (1.8-7.8); NEUTROPHILS % (AUTO) 84 % (42-75); PLATELET COUNT 290 10^3/uL (130-400)
[2021-04-14 06:05] LABS: ALBUMIN 2.9 GM/DL (3.2-4.5); POTASSIUM 3.9 MMOL/L (3.6-5.0)
[2021-04-14 06:06] LABS: CALCIUM 9.5 MG/DL (8.5-10.1)
[2021-04-14 06:09] LABS: BILIRUBIN,TOTAL 0.7 MG/DL (0.1-1.0)
[2021-04-14 06:11] LABS: CREATININE SERUM 0.54 MG/DL (0.60-1.30)
[2021-04-14] MEDS: MULTIVIT W/MINERALS TAB (THERAGRAN M) PO SCH (06:37)
[2021-04-14 07:44] VITALS: BP 132/64
[2021-04-14] MEDS ORDERED: DOCUSATE SODIUM 100 MG (COLACE) CAP PO SCH (09:00)
[2021-04-14] MEDS ORDERED: PANTOPRAZOLE 20 MG TABLET (PROTONIX) PO SCH (09:00)
--- NOTE | 2021-04-14 09:08 | Occupational Ther Daily Note ---
OT Current Status-Daily Note Subjective Pt alert, in bed, deputy director of nursing present upon entry gathering vitals. S/o present through session. Pt expresses 4-5/10 pain in R hip. Mental Status/Objective Patient Orientation: Person, Place, Situation Attachments: IV, Oxygen (3L) ADL-Treatment Therapy Code Descriptions/Definitions Functional Shoshone Measure: 0=Not Assessed/NA 4=Minimal Assistance 1=Total Assistance 5=Supervision or Setup 2=Maximal Assistance 6=Modified Shoshone 3=Moderate Assistance 7=Complete IndependenceSCALE: Activities may be completed with or without assistive devices. 8-Puvyxvdaxd-wssjfrt completes the activity by him/herself with no assistance from a helper. 5-Set-up or Clean-up Assistance-helper sets up or cleans up; patient completes activity. Crane assists only prior to or following the activity. 4-Supervision or Touching Assistance-helper provides verbal cues and/or touching/steadying and/or contact guard assistance as patient completes activity. Assistance may be provided throughout the activity or intermittently. 3-Partial/Moderate Assistance-helper does LESS THAN HALF the effort. Crane lifts, holds or supports trunk or limbs, but provides less than half the effort. 2-Substantial/Maximal Assistance-helper does MORE THAN HALF the effort. Crane lifts or holds trunk or limbs and provides more than half the effort. 5-Gofwpknex-bwmlap does ALL the effort. Patient does none of the effort to complete the activity. Or, the assistance of 2 or more helpers is required for the patient to complete the activity. If activity was not attempted, code reason: 7-Patient Refused. 9-Not Applicable-not attempted and the patient did not perform the activity befo re the current illness, exacerbation or injury. 10-Not Attempted due to Environmental Limitations-(lack of equipment, weather re straints, etc.). 88-Not Attempted due to Medical Conditions or Safety Concerns. Eating (QC): 5 (s/u with s/o assistance.) Toileting Hygiene (QC): 4 (s/u and SBA.) Toilet Transfer (QC): 4 (CGA, SBA throughout 2* high rise commode.) Other Treatment Pt is Ax2 to reach [facility] for positioning during vitals assessment. Bed mob with log roll/ success with min cues with CGA. Pt is educated on donning brace without twisting. Mod A. OT/ pt/ significant other discuss plans for home; s/o expresses he is willing to complete all tasks if necessary. OT educates on AE if desire to become more IND. Pt sit to stand with use of walker and ambulation with CGA and OT manipulating 02 line and IV. Pt urinates, stands, wipes with SBA, and pulls briefs over hips. Pt requires min-mod cues for positioning and placement of walker during ambulation/ problem solving. Pt ambulates to chair, sits with all needs met, call light in reach, s/o present. Education OT Patient Education: Correct positioning, Instructions to caregiver, Modified ADL techniques, Purpose of tx/functional activities, Reviewed precautions, Safety issues, Transfer techniques, Use of adapted equipment Teaching Recipient: Patient Teaching Methods: Demonstration, Discussion Response to Teaching: Verbalize Understanding, Return Demonstration OT Short Term Goals Short Term Goals Time Frame: Apr 20, 2021 Eatin Oral hygiene: 4 Toileting hygiene: 3 Shower/bathe self: 3 Upper body dressin Lower body dressin Putting on/taking off footwear: 3 OT Executive Marketing Assistant Goals Senior Living Goals Time Frame: Apr 27, 2021 Eating (QC): 6 Oral Hygiene (QC): 5 Toileting Hygiene (QC): 4 Shower/Bathe Self (QC): 4 Upper Body Dressing (QC): 5 Lower Body Dressing (QC): 4 On/Off Footwear (QC): 4 Additional Goals: 1-Demonstrate ADL Tasks, 2-Verbalize Understanding, 3-ImproveStrength/Tosin 1=Demonstrate adherence to instructed precautions during ADL tasks. 2=Patient will verbalize/demonstrate understanding of assistive devices/modifications for ADL. 3=Patient will improve strength/tolerance for activity to enable patient to perform ADL's. OT Education/Plan Problem List/Assessment Assessment: Decreased Activ Tolerance, Decreased Safety Aware, Decreased UE Strength, Dependent Transfers, Impaired Bed Mobility, Impaired Cognition, Impaired Funct Balance, Impaired I ADL's, Impaired Self-Care Skills Discharge Recommendations Plan/Recommendations: Continue POC Therapy Discharge Recommendati: Scheduled Assistance, Assisted Living, Post Acute OT Treatment Plan/Plan of Care Treatment,Training & Education: Yes Patient would benefit from OT for education, treatment and training to promote independence in ADL's, mobility, safety and/or upper extremity function for ADL's. Plan of Care: ADL Retraining, Functional Mobility, UE Funct Exercise/Act Treatment Duration: Apr 27, 2021 Frequency: 5 times per week Estimated Hrs Per Day: .25 hour per day Agreement: Yes Rehab Potential: Fair Time/GCodes Start Time: 07:45 Stop Time: 08:08 Total Time Billed (hr/min): 23 Billed Treatment Time 1, ADL 2 ( 23) FABIENNE ANDERSON OTR Apr 14, 2021 09:08
[2021-04-14] MEDS ORDERED: FUROSEMIDE 40 MG/4 ML INJ (LASIX) IVP ONE (10:00)
[2021-04-14] MEDS: CYCLOBENZAPRINE 10 MG (FLEXERIL) TAB PO SCH (10:03)
[2021-04-14] MEDS: VITAMIN D3 25 MCG (1,000 UNITS) TABLET PO SCH (10:04)
[2021-04-14] MEDS: FENOFIBRATE 134 MG (LOFIBRA) CAPSULE PO SCH (10:04)
[2021-04-14] MEDS: risperiDONE 0.5 MG (RisperDAL) TABLET PO SCH ×2 (10:04→20:13)
[2021-04-14] MEDS: LORazepam 1 MG (ATIVAN) TAB PO SCH ×2 (10:05→18:14)
[2021-04-14] MEDS: FLUoxetine HCL 20 MG (PROzac) CAP PO SCH (10:05)
[2021-04-14] MEDS: DOCUSATE SODIUM 100 MG (COLACE) CAP PO SCH ×2 (10:06→20:13)
[2021-04-14] MEDS: LACTULOSE SYRUP 10GM/15ML (ENULOSE) 30ML UDC PO SCH ×2 (10:06→20:13)
[2021-04-14] MEDS: polyethylene glycoL POWDER 17 GM (MIRALAX) PACK PO SCH ×2 (10:06→20:13)
[2021-04-14] MEDS: SENNA W/DOCUSATE (SENOKOT S) TABLET PO SCH ×2 (10:07→20:13)
--- NOTE | 2021-04-14 10:07 | Physical Therapy Daily Note ---
PT Daily Note-Current Subjective Patient is mildly emotional. Agrees to PT. Mental Status Patient Orientation: Person, Time, Situation Attachments: Oxygen Transfers SCALE: Activities may be completed with or without assistive devices. 4-Oesijpqqhe-qorhpci completes the activity by him/herself with no assistance from a helper. 5-Set-up or Clean-up Assistance-helper sets up or cleans up; patient completes activity. [place]z assists only prior to or following the activity. 4-Supervision or Touching Assistance-helper provides verbal cues and/or touching/steadying and/or contact guard assistance as patient completes activity. Assistance may be provided throughout the activity or intermittently. 3-Partial/Moderate Assistance-helper does LESS THAN HALF the effort. Schurz lifts, holds or supports trunk or limbs, but provides less than half the effort. 2-Substantial/Maximal Assistance-helper does MORE THAN HALF the effort. Schurz lifts or holds trunk or limbs and provides more than half the effort. 3-Kcerzapef-svmplk does ALL the effort. Patient does none of the effort to complete the activity. Or, the assistance of 2 or more helpers is required for the patient to complete the activity. If activity was not attempted, code reason: 7-Patient Refused. 9-Not Applicable-not attempted and the patient did not perform the activity before the current illness, exacerbation or injury. 10-Not Attempted due to Environmental Limitations-(lack of equipment, weather restraints, etc.). 88-Not Attempted due to Medical Conditions or Safety Concerns. Sit to Stand (QC): 4 Chair/Ghv-dt-Zmgsz Xfer(QC): 4 Toilet Transfer (QC): 4 Gait Training Does the Patient Walk?: Yes Distance: 250' Walk 10 feet (QC): 4 Walk 50 ft with 2 Turns(QC): 4 Walk 150 ft (QC): 4 Gait Assistive Device: FWW slow, steady, functional gait sequence Exercises Seated Therapy Exercises: Ankle pumps, Long arc quads Seated Reps: [address] in [address]/education with patient on deep breathing techniques to improve lung capacity. PT Snf Goals Strategic Consultant Goals PT Strategic Consultant Goals Time Frame: Apr 20, 2021 Roll Left & Right (QC): 5 Sit to Lying (QC): 4 Lying-Sitting on Side/Bed(QC): 4 Sit to Stand (QC): 5 Chair/Ema-xs-Qztqz Xfer(QC): 5 Walk 10 feet (QC): 5 Walk 50ft with 2 Turns (QC): 5 Walk 150 ft (QC): 5 PT Plan Treatment/Plan Treatment Plan: Continue Plan of Care Treatment Plan: Bed Mobility, Education, Functional Activity Tosin, Functional Strength, Gait, Safety, Therapeutic Exercise, Transfers Treatment Duration: Apr 20, 2021 Frequency: 6 times per week Estimated Hrs Per Day: .25 hour per day Patient and/or Family Agrees t: Yes Time/GCodes Time In: 934 Time Out: 945 Total Billed Treatment Time: 11 Total Billed Treatment 1 visit FA 11 min ZOHRA HYATT PT Apr 14, 2021 10:07
[2021-04-14] MEDS: ATENOLOL 50 MG (TENORMIN) TAB PO SCH (10:13)
--- NOTE | 2021-04-14 10:39 | Diagnostic Imaging Report ---
INDICATION: Pneumonia follow-up. FINDINGS: 2 views of the chest shows right lower lobe infiltrate with increased consolidation compared to 04/11/2021 study with more involvement of the superior segment of the right lower lobe. There has developed a small right-sided effusion. IMPRESSION: Increasing right lower lobe infiltrate. Recommend continued follow-up. Dictated by: Dictated on workstation # [id number]
--- NOTE | 2021-04-14 10:59 | Progress Note - Hospitalist ---
REUBEN OCONNELL MED STUDENT 04/14/21 1059: Subjective HPI/CC On Admission Date Seen by Provider: Apr 14, 2021 Time Seen by Provider: 08:40 Chief complaint: Pneumonia with UTI History present illness: This is a very debilitated 75-year-old white female who presented to the ER with severe weakness and confusion and lethargy. Apparently she just had lumbar spine surgery by Dr. Reece in [place] on 03/30/2021 and was sent home and has not done well since then. She appears to be very pale and very debilitated. Her fianc is at the bedside and is heavily involved in her care and has many questions over short amount of time. Patient does not wear oxygen at home. Antibiotics were started to cover pneumonia and UTI sources. Patient has severe anemia 7.3 and appears to be very pale so we will give 1 unit of blood and she is willing to do that. Patient appears to be very declined and has cognitive deficits. Subjective/Events-last exam Feels like her lungs became more congested overnight, felt improved after coughing up some sputum. No complaints at this time. Focused Exam Lactate Level 04/11/21 16:20: Lactic Acid Level 1.45 Time of Focused Exam: 18:15 Objective Exam Vital Signs Vital Signs Date Time Temp Pulse Resp B/P (MAP) Pulse Ox O2 Delivery O2 Flow Rate FiO2 04/14/21 07:44 37.3 109 32 132/64 (86) 91 Nasal Cannula 2.00 Capillary Refill : Less Than 3 Seconds General Appearance: No Apparent Distress, Chronically ill HEENT: PERRL/EOMI Neck: Normal Inspection Respiratory: No Accessory Muscle Use, No Respiratory Distress, Crackles Cardiovascular: Regular Rate, Rhythm, No Edema Back: Other (back brace in place) Extremity: Non Tender, No Calf Tenderness, No Pedal Edema Neurologic/Psychiatric: Alert, No Motor/Sensory Deficits, Normal Mood/Affect Skin: Normal Color, Warm/Dry Results/Procedures Lab Laboratory Tests 04/14/21 05:15 Patient resulted labs reviewed. Imaging: Reviewed Imaging Films, Reviewed Imaging Report Assessment/Plan Assessment and Plan Assess & Plan/Chief Complaint sepsis Cefepime pneumonia CXR today shows increasing RLL infiltrate and small right-sided effusion Will start Lasix 20 mg UTI cultures negative for growth debility anemia-improved LAUREL LUCERO DO 04/14/212150: Subjective Subjective/Events-last exam Pt doing really well Walking with therapy Lasix 20 mg IV x1 and heplocking IV fluid due to coarseness on lung exam and CXR looks volume overloaded Urine culture no growth to date Review of Systems General: Fatigue, Malaise Pulmonary: Dyspnea Objective Exam General Appearance: No Apparent Distress, WD/WN, Chronically ill Respiratory: No Accessory Muscle Use, No Respiratory Distress Cardiovascular: Regular Rate, Rhythm Supervisory-Addendum Brief Verification & Attestation Participated in pt care: history, MDM, physical Personally performed: exam, history, MDM, supervision of care Care discussed with: Medical Student Procedures: n/a Results interpretation: Verified all documentation Verification and Attestation of Medical Student E/M Service A medical student performed and documented this service in my presence. I reviewed and verified all information documented by the medical student and made modifications to such information, when appropriate. I personally performed the physical exam and medical decision making. Laurel Lucero, Apr 14, 2021,21:50 REUBEN OCONNELL MED STUDENT Apr 14, 2021 10:59 LAUREL LUCERO DO Apr 14, 2021 21:51
[2021-04-14] MEDS: ACETAMINOPHEN 500 MG TAB (TYLENOL) PO PRN (12:30)
[2021-04-14 15:21] VITALS: BP 95/58
[2021-04-14 21:50] VITALS: BP 95/58
[2021-04-15] VITALS (15 sets, daily range): BP systolic 100–163; BP diastolic 53–97
[2021-04-15] MEDS: RT-ALBUTEROL/IPRATROPIUM 3 ML (DUONEB) VIAL INH PRN (00:51)
[2021-04-15] MEDS: CEFEPIME 1,000 MG/SWFI 10 ML IV PUSH IV SCH ×2 (01:14)
[2021-04-15] MEDS: LACTATED RINGERS 1,000 ML IV SCH (04:07)
[2021-04-15] MEDS ORDERED: ACETAMINOPHEN 325 MG SUPP (TYLENOL) ONE (05:08)
[2021-04-15] MEDS: ACETAMINOPHEN 650 MG SUPP (TYLENOL) PR PRN (05:26)
[2021-04-15 05:29] LABS: ABG BASE EXCESS 6.9 MMOL/L (-2.5-2.5); ABG OXYGEN SATURATION 94 % (94-100); ABG PCO2 42 MMHG (35-45); ABG PH 7.48 (7.37-7.43); ABG PO2 67 MMHG (79-93); ABG TCO2 31.6 MMOL/L (21.0-31.0)
[2021-04-15 05:31] LABS: ALLENS TEST YES-POS; INSPIRED O2 5L; VENTILATOR NO
[2021-04-15 05:32] LABS: PATIENT TEMP 101.2
[2021-04-15] MEDS ORDERED: NS IV 1000 ML 1,000 ML IV SCH (05:45)
[2021-04-15] MEDS: MULTIVIT W/MINERALS TAB (THERAGRAN M) PO SCH (05:51)
[2021-04-15 06:13] LABS: BASOPHILS % (AUTO) 0 % (0-10); EOSINOPHILS % (AUTO) 0 % (0-10); LYMPHOCYTES # (AUTO) 1.1 10^3/uL (1.0-4.0); LYMPHOCYTES % (AUTO) 14 % (12-44); MEAN CORPUSCULAR HEMOGLOBIN 31 pg (25-34); MEAN CORPUSCULAR HGB CONC 33 g/dL (32-36); MEAN CORPUSCULAR VOLUME 93 fL (80-99); MEAN PLATELET VOLUME 10.3 fL (9.0-12.2); MONOCYTES # (AUTO) 0.3 10^3/uL (0.0-1.0); MONOCYTES % (AUTO) 3 % (0-12); NEUTROPHILS # (AUTO) 6.8 10^3/uL (1.8-7.8); NEUTROPHILS % (AUTO) 83 % (42-75); PLATELET COUNT 333 10^3/uL (130-400); WHITE BLOOD COUNT 8.3 10^3/uL (4.3-11.0)
[2021-04-15 06:18] LABS: HEMATOCRIT 19 % (35-52); HEMOGLOBIN 6.2 g/dL (11.5-16.0)
[2021-04-15 06:20] LABS: ALBUMIN 2.6 GM/DL (3.2-4.5); POTASSIUM 3.5 MMOL/L (3.6-5.0)
[2021-04-15 06:21] LABS: CALCIUM 8.8 MG/DL (8.5-10.1)
[2021-04-15 06:23] LABS: TOTAL PROTEIN 5.4 GM/DL (6.4-8.2)
[2021-04-15 06:24] LABS: BILIRUBIN,TOTAL 0.7 MG/DL (0.1-1.0)
[2021-04-15 06:26] LABS: CREATININE SERUM 0.53 MG/DL (0.60-1.30)
[2021-04-15] MEDS ORDERED: NS IV 500 ML 500 ML IV SCH (06:30)
[2021-04-15] MEDS: PANTOPRAZOLE 20 MG TABLET (PROTONIX) PO SCH ×2 (06:42→16:15)
[2021-04-15] MEDS ORDERED: MAGNESIUM 1 GM/100 ML IVPB 100 ML IV ONE (06:45)
[2021-04-15 07:16] LABS: RETICULOCYTE % 1.4 % (0.50-2.40)
[2021-04-15] MEDS ORDERED: RT-ALBUTEROL/IPRATROPIUM 3 ML (DUONEB) VIAL INH SCH (08:00)
[2021-04-15] MEDS ORDERED: LACTATED RINGERS 0 ML IV ONE (09:39)
--- NOTE | 2021-04-15 09:40 | Physical Therapy Progress Note ---
Therapy Progress Note Patient on Hold per RN secondary to critical Hgb and decline in status. Will reassess in ZOHRA Moreno PT Apr 15, 2021 09:40
[2021-04-15] MEDS: POTASSIUM CL 10MEQ/50ML IVPB 50 ML IV SCH ×4 (09:56→16:15)
[2021-04-15] MEDS: LORazepam 1 MG (ATIVAN) TAB PO SCH ×2 (11:15→18:49)
[2021-04-15] MEDS: DOCUSATE SODIUM 100 MG (COLACE) CAP PO SCH ×2 (11:16→20:35)
[2021-04-15] MEDS: LACTULOSE SYRUP 10GM/15ML (ENULOSE) 30ML UDC PO SCH ×2 (11:16→21:05)
[2021-04-15] MEDS: FLUoxetine HCL 20 MG (PROzac) CAP PO SCH (11:17)
[2021-04-15] MEDS: CYCLOBENZAPRINE 10 MG (FLEXERIL) TAB PO SCH (11:17)
[2021-04-15] MEDS: polyethylene glycoL POWDER 17 GM (MIRALAX) PACK PO SCH ×2 (11:17→20:35)
[2021-04-15] MEDS: FENOFIBRATE 134 MG (LOFIBRA) CAPSULE PO SCH (11:17)
[2021-04-15] MEDS: VITAMIN D3 25 MCG (1,000 UNITS) TABLET PO SCH (11:18)
[2021-04-15] MEDS: ATENOLOL 50 MG (TENORMIN) TAB PO SCH (11:18)
[2021-04-15] MEDS: SENNA W/DOCUSATE (SENOKOT S) TABLET PO SCH ×2 (11:18→20:35)
[2021-04-15] MEDS: risperiDONE 0.5 MG (RisperDAL) TABLET PO SCH ×2 (11:18→20:35)
--- NOTE | 2021-04-15 11:38 | Diagnostic Imaging Report ---
Clinical indication: Patient with pneumonia. Exam: Portable chest x-ray upright view. Comparisons: Chest x-ray dated 04/11/2021. Findings: There is interval progression of patchy lung infiltrates involving right upper lobe and right lower lung field region. There is minimal left basilar atelectasis. There is interval blunting of the right costophrenic angle region and a small pleural effusion cannot be excluded. There is no pneumothorax. Pulmonary vasculature and cardiac silhouette are within normal limits. There are degenerative spurs involving the thoracic spine. IMPRESSION: 1: There is interval progression of right lung pneumonia. Possible interval development of a small right pleural effusion. Dictated by: Dictated on workstation # [id number]
[2021-04-15] MEDS ORDERED: FUROSEMIDE 40 MG/4 ML INJ (LASIX) IVP ONE (12:00)
--- NOTE | 2021-04-15 12:05 | Consultation-Cardiology ---
HPI-Cardiology Cardiology Consultation: Date of Consultation 04/15/21 Time Seen by a Provider: 11:35 Date of Admission 04-11-21 Attending Physician Laurel Lucero DO Admitting Physician Js Johnson MD Consulting Physician Anjelica Shukla Md HPI: Chief Complaint: Progressive dyspnea Ms. Beasley is a 75 yr old female admitted on 04-11-21 from the ED with sepsis. Her significant other is at the bedside. He reports she began to feel unwell last Tuesday. He reports throughout the weekend she became progressively weak and lethargic. He states he called her mental health nurse from [facility] who advised he call her PCP. He states he called her surgeon, Dr. Reece, who did her back surgery on March 30, 2021; he was advised to call her PCP. He states he called her PCP on Tuesday and was directed to bring her to the ED. She is lethargic, pale and very SOB at the time of this exam. She does not report any c/o CP. She does not report any c/o n/v/d. She does not report any abd pain. She is reporting back pain d/t recent surgery and requesting pain medication. The significant other reports she takes hydrocodone at home for back pain post operatively. She reports she has no previous cardiac issues other than HTN and HLD. She follows with Dr. Johnson in [facility]. Review of Systems-Cardiology Review of Systems Constitutional: chills, fever, malaise Eyes: No vision change Ears/Nose/Throat: No epistaxis, No recent hearing loss Respiratory: As described under HPI Cardiovascular: As described under HPI Gastrointestinal: As described under HPI Genitourinary: No hematuria Musculoskeletal: back pain Skin: No rash on exposed areas, No ulcerations on exposed areas Psychiatric/Neurological: anxiety, depression; No seizure, No syncope Hematologic: No bleeding abnormalities QXX-Xtmpri-Tnfkqz Hx Patient Social History Marrital Status: cohabiting Employed/Student: retired Smoking Status: Former Smoker 2nd Hand Smoke Exposure: Yes Have you traveled recently?: No Alcohol Use?: No Pt feels they are or have been: No Tobacco type used: Cigarettes Immunizations Up To Date Date of Influenza Vaccine: Jul 10, 2020 Past Medical History PMH As described under Assessment. Family Medical History Family Medical History: Unable to obtain d/t lethargy Allergies and Home Medications Allergies Coded Allergies: iodine (Unverified Allergy, Intermediate, 12/08/20) Penicillins (Unverified Allergy, Mild, 12/08/20) Home Medications Atenolol 50 Mg Tablet, 50 MG PO DAILY, (Reported) Last Action: Continued Atorvastatin Calcium 40 Mg Tablet, 40 MG PO HS, (Reported) Last Action: Continued Cholecalciferol (Vitamin D3) 25 Mcg Capsule, 25 MCG PO DAILY, (Reported) Last Action: Converted Cyclobenzaprine HCl 10 Mg Tablet, 10 MG PO DAILY, (Reported) Last Action: Continued Docusate Sodium 100 Mg Capsule, 100 MG PO BID, (Reported) Last Action: Continued Fenofibrate Nanocrystallized 145 Mg Tablet, 145 MG PO DAILY, (Reported) Last Action: Converted Fluoxetine HCl 20 Mg Capsule, 20 MG PO DAILY, (Reported) Last Action: Continued Hydrocodone/Acetaminophen 1 Each Tablet, 1 EA PO Q6H PRN for PAIN-MODERATE (5- 7), (Reported) Last Action: Continued Lansoprazole 15 Mg Capsule.dr, 15 MG PO DAILY, (Reported) Last Action: Converted Lorazepam 2 Mg Tablet, 1 MG PO BID WITH MEALS, (Reported) TAKES OF A 2MG TAB Last Action: Converted Risperidone 0.5 Mg Tablet, 0.5 MG PO BID, (Reported) Last Action: Continued Vit C/E/Zn/Coppr/Lutein/Zeaxan 1 Each Capsule, 1 EACH PO BID, (Reported) Last Action: Converted Physical Exam-Cardiology Physical Exam Vital Signs/I&O 04/15/21 04/15/21 04/15/21 04/15/21 20:33 21:00 21:00 21:03 Temp 38.3 36.5 36.7 Pulse 95 Resp 20 B/P (MAP) 117/68 (84) Pulse Ox 97 O2 Delivery High Flow N/C O2 Flow Rate 8.00 04/15/21 04/15/21 04/15/21 04/16/21 22:00 22:30 23:00 00:00 Temp 35.8 Pulse 96 87 Resp 20 23 B/P (MAP) 114/92 (99) 142/69 (93) Pulse Ox 96 94 O2 Delivery High Flow N/C High Flow N/C High Flow N/C O2 Flow Rate 8.00 6.00 6.00 04/16/21 04/16/21 04/16/2121 00:00 01:00 01:00 02:00 Pulse 86 87 87 84 Resp 20 19 21 B/P (MAP) 139/78 (98) 114/62 (79) 123/78 (93) Pulse Ox 96 96 95 O2 Delivery High Flow N/C High Flow N/C High Flow N/C O2 Flow Rate 6.00 4.00 6.00 04/16/21 04/16/21 04/16/21 04/16/21 03:00 04:00 04:00 05:00 Temp 35.7 Pulse 86 89 85 Resp 22 15 23 B/P (MAP) 132/75 (94) 117/53 (74) 117/87 (97) Pulse Ox 93 92 90 O2 Delivery High Flow N/C High Flow N/C High Flow N/C High Flow N/C O2 Flow Rate 6.00 4.00 4.00 4.00 04/16/21 04/16/21 04/16/21 04/16/21 05:30 06:00 07:00 07:00 Pulse 90 92 92 Resp 24 18 B/P (MAP) 132/67 (88) 144/75 (98) Pulse Ox 92 91 O2 Delivery High Flow N/C High Flow N/C High Flow N/C O2 Flow Rate 5.00 5.00 5.00 04/16/21 04/16/21 04/16/21 07:00 07:55 08:00 Temp 36.6 Pulse 93 Resp 16 B/P (MAP) 137/89 (105) Pulse Ox 92 89 O2 Delivery High Flow N/C High Flow N/C O2 Flow Rate 5.00 5.00 04/16/21 00:00 Intake Total 0 ml Output Total 920 ml Balance -920 ml Capillary Refill : Less Than 3 Seconds Constitutional: AAO x 3 (lethargic), well-developed, well-nourished HEENT: PERRL, hearing is well preserved Neck: No carotid bruit; carotid pulses are 2 + bilaterally Respiratory: other (coarse breath sounds throughout all smith; dyspneic with simple conversation) Cardiovascular: regular rate-rhythm; No JVD; S1 and S2 Gastrointestinal: No tender; soft; No guarding; audible bowel sounds Extremities: no lower extremity edema bilateral Neurologic/Psychiatric: grossly intact (moves all extremities) Skin: pallor Data Review Labs Laboratory Tests 04/15/21 14:30: Urine Color YELLOW, Urine Clarity CLEAR, Urine pH 5.5, Urine Specific [place] 1.010L, Urine Protein NEGATIVE, Urine Glucose (UA) NEGATIVE, Urine Ketones NEGATIVE, Urine Nitrite NEGATIVE, Urine Bilirubin NEGATIVE, Urine Urobilinogen 0.2, Urine Leukocyte Esterase NEGATIVE, Urine RBC (Auto) NEGATIVE, Urine RBC NONE, Urine WBC NONE, Urine Squamous Epithelial Cells RARE, Urine Crystals NONE, Urine Bacteria NEGATIVE, Urine Casts NONE, Urine Mucus NEGATIVE, Urine Culture Indicated NO 04/15/21 18:00: White Blood Count 7.2, Red Blood Count 3.50L, Hemoglobin 10.5#L, Hematocrit 32L, Mean Corpuscular Volume 90, Mean Corpuscular Hemoglobin 30, Mean Corpuscular Hemoglobin Concent 33, Red Cell Distribution Width 16.3H, Platelet Count 281, Mean Platelet Volume 9.9, Prothrombin Time 21.3H, INR Comment 1.8H, Potassium Level 3.6, Magnesium Level 1.5L 04/16/21 03:50: White Blood Count 6.5, Red Blood Count 3.45L, Hemoglobin 10.4L, Hematocrit 31L, Mean Corpuscular Volume 91, Mean Corpuscular Hemoglobin 30, Mean Corpuscular Hemoglobin Concent 33, Red Cell Distribution Width 16.6H, Platelet Count 266, Mean Platelet Volume 10.2, Potassium Level 3.4L, Magnesium Level 1.9, Immature Granulocyte % (Auto) 1, Neutrophils (%) (Auto) 87H, Lymphocytes (%) (Auto) 9L, Monocytes (%) (Auto) 3, Eosinophils (%) (Auto) 0, Basophils (%) (Auto) 0, Neutrophils # (Auto) 5.6, Lymphocytes # (Auto) 0.6L, Monocytes # (Auto) 0.2, Eosinophils # (Auto) 0.0, Basophils # (Auto) 0.0, Immature Granulocyte # (Auto) 0.1, Neutrophils % (Manual) 88, Lymphocytes % (Manual) 4, Monocytes % (Manual) 3, Band Neutrophils 5, Polychromasia MODERATE, Blood Morphology Comment NA, Sodium Level 140, Chloride Level 100, Carbon Dioxide Level 26, Anion Gap 14, Blood Urea Nitrogen 8, Creatinine 0.51L, Estimat Glomerular Filtration Rate 117, BUN/Creatinine Ratio 16, Glucose Level 96, Calcium Level 8.3L Microbiology 04/12/21 Blood Culture - Preliminary, Resulted No growth 04/11/21 Urine Culture - Final, Complete Radiology NAME: JOHNSON BEASLEY MED REC#: [id number] PT STATUS: ADM IN : 1945 PHYSICIAN: LAUREL LUCERO DO ADMIT DATE: 04/11/21 Draft Date of Exam:04/15/21 CHEST 1 VIEW, AP/PA ONLY Clinical indication: Patient with pneumonia. Exam: Portable chest x-ray upright view. Comparisons: Chest x-ray dated 04/11/2021. Findings: There is interval progression of patchy lung infiltrates involving right upper lobe and right lower lung field region. There is minimal left basilar atelectasis. There is interval blunting of the right costophrenic angle region and a small pleural effusion cannot be excluded. There is no pneumothorax. Pulmonary vasculature and cardiac silhouette are within normal limits. There are degenerative spurs involving the thoracic spine. IMPRESSION: 1: There is interval progression of right lung pneumonia. Possible interval development of a small right pleural effusion. Dictated on workstation # [id number] Dict: 04/15/21 1136 Trans: 04/15/21 1137 [facility] [id number] Interpreted by: ISABELLE SANDRA MD Electronically signed by: A/P-Cardiology Assessment/Admission Diagnosis Sepsis - management per medical services UTI - management per medical services Pneumonia - management per medical services Elevated BNP of undetermined etiology AMS - likely d/t hypoxia/anemia HTN - controlled HLD - statin tx H/O tobaccoism - quit in February 2021 Probable COPD Anemia of undetermined etiology - Dr. Williamson managing - possible endoscopy today Recent back surgery by Dr. Reece in [place], [place] (March 30, 2021) Anxiety/Depression Discussion and Recomendations Sepsis - management per medical services Pneumonia - management per medical services Echocardiogram today to eval valvular status and function IV Lasix x 1 dose Management of anemia is per surgical services - currently receiving transfusion Monitor lab closely and replace electrolytes as indicated Further recs will be based on her hospital course RAFI GRIFFIN Apr 15, 2021 12:05
[2021-04-15] MEDS ORDERED: VANCOMYCIN INJECTION 0.1 MG in NS (IVPB) 250 ML IV SCH (12:15)
[2021-04-15] MEDS ORDERED: MEROPENEM 500 MG VIAL (MERREM) IV ONE (12:44)
[2021-04-15] MEDS ORDERED: WATER (STERILE) FOR INJECTION 20 ML ONE (12:45)
[2021-04-15] MEDS ORDERED: VANCOMYCIN 1250 MG/NS 250 ML IVPB IV NR ×2 (13:00)
[2021-04-15 14:42] LABS: BILIRUBIN,URINE NEGATIVE (NEGATIVE); CLARITY,URINE CLEAR; COLOR,URINE YELLOW; GLUCOSE, URINE (UA) NEGATIVE (NEGATIVE); KETONES,URINE NEGATIVE (NEGATIVE); LEUKOCYTE ESTERASE ,URINE NEGATIVE (NEGATIVE); NITRITE,URINE NEGATIVE (NEGATIVE); PH,URINE 5.5 (5-9); PROTEIN,URINE NEGATIVE (NEGATIVE)
[2021-04-15 14:53] LABS: BACTERIA,URINE NEGATIVE /HPF; SQUAMOUS EPITHELIAL CELL,UR RARE /HPF
--- NOTE | 2021-04-15 14:55 | Progress Note - Hospitalist ---
REUBEN OCONNELL MED STUDENT 04/15/21 1455: Subjective HPI/CC On Admission Date Seen by Provider: Apr 15, 2021 Time Seen by Provider: 09:15 Chief complaint: Pneumonia with UTI History present illness: This is a very debilitated 75-year-old white female who presented to the ER with severe weakness and confusion and lethargy. Apparently she just had lumbar spine surgery by Dr. Reece in [place] on 03/30/2021 and was sent home and has not done well since then. She appears to be very pale and very debilitated. Her fianc is at the bedside and is heavily involved in her care and has many questions over short amount of time. Patient does not wear oxygen at home. Antibiotics were started to cover pneumonia and UTI sources. Patient has severe anemia 7.3 and appears to be very pale so we will give 1 unit of blood and she is willing to do that. Patient appears to be very declined and has cognitive deficits. Subjective/Events-last exam Worsening weakness and shortness of breath overnight. Pt notes some confusion as well. Focused Exam Lactate Level 04/15/21 05:55: Lactic Acid Level 0.91 Time of Focused Exam: 18:15 Objective Exam Vital Signs Vital Signs Date Time Temp Pulse Resp B/P (MAP) Pulse Ox O2 Delivery O2 Flow Rate FiO2 04/15/21 13:57 100 04/15/21 12:52 37.1 40 123/77 94 Nasal Cannula 5.00 Capillary Refill : Less Than 3 Seconds General Appearance: Chronically ill, Mild Distress Respiratory: Crackles, Other (tachypneic, increased work of breathing) Cardiovascular: Regular Rate, Rhythm, No Edema Gastrointestinal: Non Tender, Soft Extremity: Normal Inspection, No Calf Tenderness, No Pedal Edema Neurologic/Psychiatric: Alert, Other (somewhat confused) Skin: Warm/Dry, Pallor Results/Procedures Lab Laboratory Tests 04/15/21 05:55 Patient resulted labs reviewed. Imaging: Reviewed Imaging Films, Reviewed Imaging Report Assessment/Plan Assessment and Plan Assess & Plan/Chief Complaint anemia-worsening hgb 6.2 this morning transfuse [address] 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 COPD appears to be worsened Pt appears to be very pale Cardiology was consulted and moved her to the ICU Review of Systems General: Fatigue Pulmonary: Dyspnea Neurological: Confusion Objective Exam General Appearance: No Apparent Distress, WD/WN, Chronically ill, Thin Respiratory: Lungs Clear, Normal Breath Sounds Cardiovascular: Regular Rate, Rhythm Assessment/Plan Assessment and Plan Assess & Plan/Chief Complaint ICU transfer Patient appears to be very debilitated Supportive care Supervisory-Addendum Brief Verification & Attestation Participated in pt care: history, MDM, physical Personally performed: exam, history, MDM, supervision of care Care discussed with: Medical Student Procedures: n/a Results interpretation: Verified all documentation Verification and Attestation of Medical Student E/M Service A medical student performed and documented this service in my presence. I reviewed and verified all information documented by the medical student and made modifications to such information, when appropriate. I personally performed the physical exam and medical decision making. Laurel Lucero, Apr 16, 2021,05:04 REUBEN OCONNELL MED STUDENT Apr 15, 2021 14:55 LAUREL LUCERO DO Apr 16, 2021 05:05
--- NOTE | 2021-04-15 15:01 | Occ Therapy Progress Note ---
Therapy Progress Note Due to pt's decline in medical status, OT to discontinue therapy at this time. Will need new orders when pt is able to tolerate skilled therapy. BRIANNA BARTLETT Apr 15, 2021 15:00
[2021-04-15] MEDS: MEROPENEM 1,000 MG in WATER (STERILE) FOR INJECTION 20 ML IV SCH ×2 (16:15→20:34)
[2021-04-15] MEDS ORDERED: proPOfol 200 MG/20 ML (DIPRIVAN) VIAL IV ONE (16:18)
--- NOTE | 2021-04-15 16:46 | Anesthesia-General Post-Op ---
MAC Patient Condition Mental Status/LOC: Same as Preop Cardiovascular: Satisfactory Nausea/Vomiting: Absent Respiratory: Satisfactory Pain: Controlled Complications: Absent Post Op Complications Complications None Follow Up Care/Instructions Patient Instructions None needed. Anesthesiology Discharge Order Discharge Order Patient is doing well, no complaints, stable vital signs, no apparent adverse anesthesia problems. No complications reported per nursing. FERN TO CRNA Apr 15, 2021 16:46
--- NOTE | 2021-04-15 16:46 | Tele-ICU Consult ---
History of Present Illness History of Present Illness Date Seen by Provider: Apr 15, 2021 Time Seen by Provider: 16:46 Date of Admission Allergies and Home Medications Allergies Coded Allergies: iodine (Unverified Allergy, Intermediate, 12/08/20) Penicillins (Unverified Allergy, Mild, 12/08/20) Home Medications Atenolol 50 Mg Tablet, 50 MG PO DAILY, (Reported) Atorvastatin Calcium 40 Mg Tablet, 40 MG PO HS, (Reported) Cholecalciferol (Vitamin D3) 25 Mcg Capsule, 25 MCG PO DAILY, (Reported) Cyclobenzaprine HCl 10 Mg Tablet, 10 MG PO DAILY, (Reported) Docusate Sodium 100 Mg Capsule, 100 MG PO BID, (Reported) Fenofibrate Nanocrystallized 145 Mg Tablet, 145 MG PO DAILY, (Reported) Fluoxetine HCl 20 Mg Capsule, 20 MG PO DAILY, (Reported) Hydrocodone/Acetaminophen 1 Each Tablet, 1 EA PO Q6H PRN for PAIN-MODERATE (5- 7), (Reported) Lansoprazole 15 Mg Capsule.dr, 15 MG PO DAILY, (Reported) Lorazepam 2 Mg Tablet, 1 MG PO BID WITH MEALS, (Reported) TAKES OF A 2MG TAB Risperidone 0.5 Mg Tablet, 0.5 MG PO BID, (Reported) Vit C/E/Zn/Coppr/Lutein/Zeaxan 1 Each Capsule, 1 EACH PO BID, (Reported) Past Medical/Social/Family Hx Patient Social History Marrital Status: cohabiting Employed/Student: retired Tobacco Use?: Yes Tobacco type used: Cigarettes Smoking Status: Former Smoker Smokeless Tobacco Frequency: Never a User Use of E-Cig and/or Vaping dev: No Substance use?: No Alcohol Use?: No Pt stated abuse/neglect: No Immunizations Up To Date Influenza Vaccine Up-to-Date: Yes; Up-to-Date First/Initial COVID19 Vaccinat: 10/28/20 Second COVID19 Vaccination Asher: 11/25/20 Tetanus Booster (TDap): Unknown Hepatitis A: No Hepatitis B: No TB Skin Test: None Current Status status: No status: No Advance Directives: No Communicates: Verbally Primary Language: Swedish Preferred Spoken Language: Swedish Is interpretation needed?: No Sensory deficits: Vision impairment Implanted or Applied Medical D: None Review of Systems Constitutional: see HPI Sepsis Event Evaluation Height, Weight, BMI Height: '" Weight: lbs. oz. kg; 24.02 BMI Method: Exam Exam Patient acknowledged, consented, and participated in this virtual visit which was conducted using real time audio/video Vital Signs Date Time Temp Pulse Resp B/P (MAP) Pulse Ox O2 Delivery O2 Flow Rate FiO2 04/15/21 16:45 37.5 04/15/21 15:29 95 OxyMask 6.00 04/15/21 13:57 100 04/15/21 12:52 37.1 96 40 123/77 94 Nasal Cannula 5.00 04/15/21 12:50 37.1 96 40 123/77 94 Nasal Cannula 5.00 04/15/21 12:12 37.0 91 40 123/77 (92) 94 OxyMask 5.00 04/15/21 10:33 35.3 92 36 103/63 92 Nasal Cannula 5.00 04/15/21 10:33 35.3 92 36 103/63 92 Nasal Cannula 5.00 04/15/21 10:14 34.6 74 40 100/65 90 Nasal Cannula 5.00 04/15/21 08:00 92 Nasal Cannula 5.00 04/15/21 07:20 36.1 99 32 107/53 (71) 91 High Flow N/C 5.00 04/15/21 07:12 94 Nasal Cannula 5.00 04/15/21 05:56 37.5 04/15/21 05:26 38.4 04/15/21 04:40 38.4 102 34 127/97 (107) 90 High Flow N/C 5.00 04/15/21 00:30 37.8 91 42 112/54 (73) 90 Nasal Cannula 3.00 04/14/21 21:50 35.9 92 95 04/14/21 20:07 Nasal Cannula 2.00 I & O 04/15/21 06:59 Intake Total 3087 ml Output Total 701 ml Balance 2386 ml Height & Weight Height: '" Weight: lbs. oz. kg; 24.02 BMI Method: General Appearance: No Apparent Distress, Chronically ill, Mild Distress HEENT: PERRL/EOMI Neck: Normal Inspection Respiratory: Crackles, Other (tachypneic, increased work of breathing) Cardiovascular: Regular Rate, Rhythm, No Edema Capillary Refill: Less Than 3 Seconds Extremity: Normal Inspection, No Calf Tenderness, No Pedal Edema Neurologic/Psychiatric: Alert, Other (somewhat confused) Skin: Warm/Dry, Pallor Lymphatic: No Adenopathy Results Lab Laboratory Tests 04/14/21 05:15 04/15/21 05:55 Assessment/Plan Assessment/Plan (Tele-ICU Physician , consultation) Available chart/ vitals / labs / Images reviewed H&P is from ER notes Patient's information available about PMH, Shx, Fhx allergy reviewed in EMR. ROS as per chart and RN report Patient admitted 04/11- 75 yr old female admitted D with sepsis 04/15 - transferred to ICU wth a flatter 140 , hypoxia, anemia Now in ICU, hemodynamically stable HR 140 , AAo , + sob , no CP Video assessment done using teleICU camera, rest of exam as per RN Discussed with RN. Consultants: samara, Sandro A/P ANEMIA - hb 6 .2 - on second unit of PRBC - elv INR prior - will repat with next blood draw - EGD is about to be done - MD in room - PPI given x1 - await results of EGD Hypoxia - with PNA A flatter 140 - no CP - converted to sinus with HR 90 - check lytes , follow closely , cards consulted Sepsis - on admission , nor new RLL PNA - resuscitation with pRBC first , abx initiated UTI - by UA , no cx Elevated BNP - mild - follow after transfusion Probable COPD as per chart Recent lumbar spine surgery Lines : midline (Central Line Necessity Reviewed) Hunter: + OG: Nutrition: NPO Analgesia: Anxiety/ delirium VTE Prophylaxis: SCD Stress Ulcer Prophylaxis: ppi Glycemic Control: Plans in collaboration with bedside consultants and IM MDs. Discussed with RN to reach out if any questions or concerns A total of 40 minutes of critical care time was devoted to this patient today, required to treat and/or prevent further deterioration of critical care condition ( as above ERNST ALONZO MD Apr 15, 2021 16:46
--- NOTE | 2021-04-15 16:53 | Progress Note-Post Operative ---
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 She was administered IV sedation by the SHAPER OPERATOR who then monitored vitals the entire time, heart rate, blood pressure and pulse ox and the scope was inserted down the mouth through the esophagus into the stomach. On the way down, noted some moderate esophagitis(looked like Rodriguez's) took a picture, pushed into the stomach, pushed past the antrum into the duodenum. Duodenum looked good. Pulled back and did not see any signs of bleeding (old or new) and no ulcers. Then retroflexed the scope, saw hiatal hernia, took a picture of this and then pulled the scope into the GE junction, took another picture of the hiatal hernia. Pushed the scope back into the stomach, suctioned all the air out of the stomach. At this point pulled the scope up the esophagus and out the mouth. The patient tolerated the procedure, and she was recovered in her ICU bed. Anesthesia Type IV sedation by SHAPER OPERATOR Estimated Blood Loss Estimated blood loss (mL): none Specimens/Packing Specimens Removed none CHAS CHAN DO Apr 15, 2021 16:53
[2021-04-15 18:09] LABS: HEMATOCRIT 32 % (35-52); HEMOGLOBIN 10.5 g/dL (11.5-16.0); MEAN CORPUSCULAR HEMOGLOBIN 30 pg (25-34); MEAN CORPUSCULAR HGB CONC 33 g/dL (32-36); MEAN CORPUSCULAR VOLUME 90 fL (80-99); MEAN PLATELET VOLUME 9.9 fL (9.0-12.2); PLATELET COUNT 281 10^3/uL (130-400); WHITE BLOOD COUNT 7.2 10^3/uL (4.3-11.0)
[2021-04-15 18:20] LABS: INR 1.8 (0.8-1.4); PROTHROMBIN TIME PATIENT 21.3 SEC (12.2-14.7)
[2021-04-15 18:23] LABS: POTASSIUM 3.6 MMOL/L (3.6-5.0)
[2021-04-15 18:30] LABS: MAGNESIUM 1.5 MG/DL (1.6-2.4)
[2021-04-15] MEDS: MAGNESIUM 1 GM/100 ML IVPB 100 ML IV SCH ×2 (18:56→20:32)
[2021-04-15] MEDS: RT-ALBUTEROL/IPRATROPIUM 3 ML (DUONEB) VIAL INH SCH (19:26)
--- NOTE | 2021-04-15 20:01 | Consultation-Cardiology ---
HPI-Cardiology Cardiology Consultation: Date of Consultation 04/15/21 Time Seen by a Provider: 18:00 Date of Admission Attending Physician Laurel Hutchins DO Admitting Physician Js Johnson MD Consulting Physician CARLA ESPINO MD, MA, FACP, FACC, [facility] [place], [place], CCDS Physician requesting consult: Dr Hutchins HPI: Chief Complaint: CC: Progressive shortness of breath HPI Ms. Beasley is a 75 yr old female admitted on 04-11-21 from the ED with sepsis. Her significant other is at the bedside. He reports she began to feel unwell last Tuesday. He reports throughout the weekend she became progressively weak and lethargic. He states he called her mental health nurse from [facility] who advised he call her PCP. He states he called her surgeon, Dr. Reece, who did her back surgery on March 30, 2021; he was advised to call her PCP. He states he called her PCP on Tuesday and was directed to bring her to the ED. She is lethargic, pale and very SOB at the time of this exam. She does not report any c/o CP. She does not report any c/o n/v/d. She does not report any abd pain. She is reporting back pain d/t recent surgery and requesting pain medication. The significant other reports she takes hydrocodone at home for back pain post operatively. She reports she has no previous cardiac issues other than HTN and HLD. She follows with Dr. Johnson in [facility]. Review of Systems-Cardiology Review of Systems Constitutional: chills, fever, malaise Eyes: No vision change Ears/Nose/Throat: No epistaxis, No recent hearing loss Respiratory: As described under HPI Cardiovascular: As described under HPI Gastrointestinal: As described under HPI Genitourinary: No hematuria Musculoskeletal: back pain Skin: No rash on exposed areas, No ulcerations on exposed areas Psychiatric/Neurological: anxiety, depression; No seizure, No syncope Hematologic: No bleeding abnormalities [id number] Hx Patient Social History Marrital Status: cohabiting Employed/Student: retired Smoking Status: Former Smoker 2nd Hand Smoke Exposure: Yes Have you traveled recently?: No Alcohol Use?: No Pt feels they are or have been: No Tobacco type used: Cigarettes Immunizations Up To Date Date of Influenza Vaccine: Jul 10, 2020 Past Medical History PMH As described under Assessment. Family Medical History Family Medical History: Does not report fam h/o early CAD or SCD Allergies and Home Medications Allergies Coded Allergies: iodine (Unverified Allergy, Intermediate, 12/08/20) Penicillins (Unverified Allergy, Mild, 12/08/20) Home Medications Atenolol 50 Mg Tablet, 50 MG PO DAILY, (Reported) Last Action: Continued Atorvastatin Calcium 40 Mg Tablet, 40 MG PO HS, (Reported) Last Action: Continued Cholecalciferol (Vitamin D3) 25 Mcg Capsule, 25 MCG PO DAILY, (Reported) Last Action: Converted Cyclobenzaprine HCl 10 Mg Tablet, 10 MG PO DAILY, (Reported) Last Action: Continued Docusate Sodium 100 Mg Capsule, 100 MG PO BID, (Reported) Last Action: Continued Fenofibrate Nanocrystallized 145 Mg Tablet, 145 MG PO DAILY, (Reported) Last Action: Converted Fluoxetine HCl 20 Mg Capsule, 20 MG PO DAILY, (Reported) Last Action: Continued Hydrocodone/Acetaminophen 1 Each Tablet, 1 EA PO Q6H PRN for PAIN-MODERATE (5- 7), (Reported) Last Action: Continued Lansoprazole 15 Mg Capsule.dr, 15 MG PO DAILY, (Reported) Last Action: Converted Lorazepam 2 Mg Tablet, 1 MG PO BID WITH MEALS, (Reported) TAKES OF A 2MG TAB Last Action: Converted Risperidone 0.5 Mg Tablet, 0.5 MG PO BID, (Reported) Last Action: Continued Vit C/E/Zn/Coppr/Lutein/Zeaxan 1 Each Capsule, 1 EACH PO BID, (Reported) Last Action: Converted Patient Home Medication List Home Medication List Reviewed: Yes Physical Exam-Cardiology Physical Exam Vital Signs/I&O 04/15/21 04/15/21 04/15/21 04/15/21 08:00 10:14 10:33 10:33 Temp 34.6 35.3 35.3 Pulse 74 92 92 Resp 40 36 36 B/P (MAP) 100/65 103/63 103/63 Pulse Ox 92 90 92 92 O2 Delivery Nasal Cannula Nasal Cannula Nasal Cannula Nasal Cannula O2 Flow Rate 5.00 5.00 5.00 5.00 04/15/21 04/15/21 04/15/21 04/15/21 12:12 12:50 12:52 13:57 Temp 37.0 37.1 37.1 Pulse 91 96 96 100 Resp 40 40 40 B/P (MAP) 123/77 (92) 123/77 123/77 Pulse Ox 94 94 94 O2 Delivery OxyMask Nasal Cannula Nasal Cannula O2 Flow Rate 5.00 5.00 5.00 04/15/21 04/15/21 04/15/21 04/15/21 14:00 15:29 16:45 16:46 Temp 37.5 37.0 Pulse Ox 94 95 O2 Delivery Nasal Cannula OxyMask O2 Flow Rate 8.00 6.00 04/15/21 04/15/21 04/15/21 04/15/21 17:00 18:00 19:27 19:45 Temp 38.3 Pulse 100 98 Resp 36 17 B/P (MAP) 150/73 (98) 145/83 (103) Pulse Ox 97 93 90 O2 Delivery High Flow N/C High Flow N/C High Flow N/C O2 Flow Rate 8.00 8.00 10.00 04/15/21 00:00 Intake Total 2202 ml Output Total 701 ml Balance 1501 ml Capillary Refill : Less Than 3 Seconds Constitutional: AAO x 3 (lethargic), well-developed, well-nourished HEENT: PERRL, hearing is well preserved Neck: No carotid bruit; carotid pulses are 2 + bilaterally Respiratory: other (coarse breath sounds throughout all smith; dyspneic with simple conversation) Cardiovascular: regular rate-rhythm; No JVD; S1 and S2 Gastrointestinal: No tender; soft; No guarding; audible bowel sounds Extremities: no lower extremity edema bilateral Neurologic/Psychiatric: other (moves all her limbs equally) Skin: pallor Data Review Labs Laboratory Tests 04/15/21 05:24: Influenza Type A (RT-PCR) Not Detected, Influenza Type B (RT-PCR) Not Detected, SARS-CoV-2 RNA (RT-PCR) Not Detected 04/15/21 05:27: Blood Gas Puncture Site RIGHT RADIAL, Blood Gas Patient Temperature 101.2, Arterial Blood pH 7.48H, Arterial Blood Partial Pressure CO2 42, Arterial Blood Partial Pressure O2 67L, Arterial Blood HCO3 30H, Arterial Blood Total CO2 31.6H , Arterial Blood Oxygen Saturation 94, Arterial Blood Base Excess 6.9H, Raciel Test YES-POS, Blood Gas Ventilator Setting NO, Blood Gas Inspired Oxygen 5L 04/15/21 05:55: White Blood Count 8.3, Red Blood Count 2.03L, Hemoglobin 6.2#*L, Hematocrit 19*L , Mean Corpuscular Volume 93, Mean Corpuscular Hemoglobin 31, Mean Corpuscular Hemoglobin Concent 33, Red Cell Distribution Width 17.0H, Platelet Count 333, Mean Platelet Volume 10.3, Immature Granulocyte % (Auto) 0, Neutrophils (%) (Auto) 83H, Lymphocytes (%) (Auto) 14, Monocytes (%) (Auto) 3, Eosinophils (%) (Auto) 0, Basophils (%) (Auto) 0, Neutrophils # (Auto) 6.8, Lymphocytes # (Auto) 1.1, Monocytes # (Auto) 0.3, Eosinophils # (Auto) 0.0, Basophils # (Auto) 0.0, Immature Granulocyte # (Auto) 0.0, Sodium Level 134L, Potassium Level 3.5L, Chloride Level 97L, Carbon Dioxide Level 26, Anion Gap 11, Blood Urea Nitrogen 7 , Creatinine 0.53L, Estimat Glomerular Filtration Rate 112, BUN/Creatinine Ratio 13, Glucose Level 99, Lactic Acid Level 0.91, Calcium Level 8.8, Corrected Calcium 9.9, Magnesium Level 1.7, Total Bilirubin 0.7, Aspartate Amino Transf (AST/SGOT) 29, Alanine Aminotransferase (ALT/SGPT) 20, Alkaline Phosphatase 63, B-Type Natriuretic Peptide 518.5H, Total Protein 5.4L, Albumin 2.6L, Procalcitonin 0.63H 04/15/21 07:05: Red Blood Count 2.86L, Absolute Reticulocyte Count 40, Percent Reticulocyte Count 1.40 04/15/21 14:30: Urine Color YELLOW, Urine Clarity CLEAR, Urine pH 5.5, Urine Specific [place] 1.010L, Urine Protein NEGATIVE, Urine Glucose (UA) NEGATIVE, Urine Ketones NEGATIVE, Urine Nitrite NEGATIVE, Urine Bilirubin NEGATIVE, Urine Urobilinogen 0.2, Urine Leukocyte Esterase NEGATIVE, Urine RBC (Auto) NEGATIVE, Urine RBC NONE, Urine WBC NONE, Urine Squamous Epithelial Cells RARE, Urine Crystals NONE, Urine Bacteria NEGATIVE, Urine Casts NONE, Urine Mucus NEGATIVE, Urine Culture Indicated NO 04/15/21 18:00: White Blood Count 7.2, Red Blood Count 3.50L, Hemoglobin 10.5#L, Hematocrit 32L, Mean Corpuscular Volume 90, Mean Corpuscular Hemoglobin 30, Mean Corpuscular Hemoglobin Concent 33, Red Cell Distribution Width 16.3H, Platelet Count 281, Mean Platelet Volume 9.9, Prothrombin Time 21.3H, INR Comment 1.8H, Potassium Level 3.6, Magnesium Level 1.5L Microbiology 04/12/21 Blood Culture - Preliminary, Resulted No growth 04/11/21 Urine Culture - Final, Complete Laboratory Tests 04/14/21 05:15 04/15/21 05:55 04/15/21 18:00 A/P-Cardiology Assessment/Admission Diagnosis Sepsis and UTI and Pneumonia - management per Medical services Ac diastolic CHF - Echo on 04/15/21: LVEF 55-60, PASP 60-65 mmHg H/O tobaccoism - quit in February 2021 Probable COPD Pulmonary hypertension of undetermined etiology AMS - likely d/t hypoxia/anemia HTN - controlled HLD - h/o statin tx Probable COPD Severe anemia of undetermined etiology - Dr. Williamson managing - endoscopy today is not reported to have shown any obvious bleed PAF, seen on tele on 04/15/21 Recent back surgery by Dr. Reece in [place], [place] (March 30, 2021) Anxiety/Depression Discussion and Recomendations Complex management due to to multiple comorbidities IV Lasix x 1 dose, then as needed Management of anemia is per surgical services - currently receiving transfusion Eliquis recommended for stroke prophylaxis, given PAF, if no active bleed and if approved by the Med and Surg services Monitor lab closely and replace electrolytes as indicated Further recs will be based on her hospital course CARLA ESPINO MD FACP FAC CCDS Apr 15, 2021 20:01
[2021-04-15] MEDS: ACETAMINOPHEN 500 MG TAB (TYLENOL) PO PRN (20:33)
[2021-04-15] MEDS: meTOproloL SUCCINATE 50 MG (TOPROL XL) TAB PO SCH (20:33)
[2021-04-16] VITALS (24 sets, daily range): BP systolic 114–154; BP diastolic 53–89
[2021-04-16 03:59] LABS: BASOPHILS % (AUTO) 0 % (0-10); EOSINOPHILS % (AUTO) 0 % (0-10); HEMATOCRIT 31 % (35-52); HEMOGLOBIN 10.4 g/dL (11.5-16.0); LYMPHOCYTES # (AUTO) 0.6 10^3/uL (1.0-4.0); LYMPHOCYTES % (AUTO) 9 % (12-44); MEAN CORPUSCULAR HEMOGLOBIN 30 pg (25-34); MEAN CORPUSCULAR HGB CONC 33 g/dL (32-36); MEAN CORPUSCULAR VOLUME 91 fL (80-99); MEAN PLATELET VOLUME 10.2 fL (9.0-12.2); MONOCYTES # (AUTO) 0.2 10^3/uL (0.0-1.0); MONOCYTES % (AUTO) 3 % (0-12); NEUTROPHILS # (AUTO) 5.6 10^3/uL (1.8-7.8); NEUTROPHILS % (AUTO) 87 % (42-75); PLATELET COUNT 266 10^3/uL (130-400); WHITE BLOOD COUNT 6.5 10^3/uL (4.3-11.0)
[2021-04-16 04:13] LABS: POTASSIUM 3.4 MMOL/L (3.6-5.0)
[2021-04-16 04:14] LABS: CALCIUM 8.3 MG/DL (8.5-10.1)
[2021-04-16 04:19] LABS: CREATININE SERUM 0.51 MG/DL (0.60-1.30)
[2021-04-16 04:21] LABS: MAGNESIUM 1.9 MG/DL (1.6-2.4)
[2021-04-16 04:31] LABS: BAND NEUTROPHILS 5 %; LYMPHOCYTES % (MANUAL) 4 %; MONOCYTES % (MANUAL) 3 %; NEUTROPHILS % (MANUAL) 88 %
[2021-04-16 04:32] LABS: POLYCHROMASIA MODERATE
--- NOTE | 2021-04-16 05:35 | Progress Note - Hospitalist ---
Subjective HPI/CC On Admission Date Seen by Provider: Apr 16, 2021 Time Seen by Provider: 11:00 Chief complaint: Pneumonia with UTI History present illness: This is a very debilitated 75-year-old white female who presented to the ER with severe weakness and confusion and lethargy. Apparently she just had lumbar spine surgery by Dr. Reece in [place] on 03/30/2021 and was sent home and has not done well since then. She appears to be very pale and very debilitated. Her fianc is at the bedside and is heavily involved in her care and has many questions over short amount of time. Patient does not wear oxygen at home. Antibiotics were started to cover pneumonia and UTI sources. Patient has severe anemia 7.3 and appears to be very pale so we will give 1 unit of blood and she is willing to do that. Patient appears to be very declined and has cognitive deficits. Subjective/Events-last exam Pt is still critical Full code, she wanted everything done even intubation but later after rounds a big conversation occurred and she wants DNR Oriented only to self this morning She is on 5 liters oxygen Cardiology consult appreciated EGD yesterday was negative for blood loss Lasix IV given tdoay Normal sinus rhythm currently Review of Systems General: Fatigue Pulmonary: Dyspnea Focused Exam Lactate Level 04/15/21 05:55: Lactic Acid Level 0.91 Time of Focused Exam: 18:15 Objective Exam Vital Signs Vital Signs Date Time Temp Pulse Resp B/P (MAP) Pulse Ox O2 Delivery O2 Flow Rate FiO2 04/16/21 19:37 36.2 04/16/21 19:10 95 High Flow N/C 5.00 04/16/21 19:00 80 04/16/21 18:00 31 115/68 (84) Capillary Refill : Less Than 3 Seconds General Appearance: No Apparent Distress, Chronically ill Respiratory: Lungs Clear, Decreased Breath Sounds Cardiovascular: Regular Rate, Rhythm Neurologic/Psychiatric: Alert, Depressed Affect Results/Procedures Lab Laboratory Tests 04/16/21 03:50 Patient resulted labs reviewed. Imaging: Reviewed Imaging Films, Reviewed Imaging Report Assessment/Plan Assessment and Plan Assess & Plan/Chief Complaint ICU transfer Patient appears to be very debilitated Supportive care Assessment: Acute respiratory failure Congestive heart failure Paroxysmal atrial fibrillation Pneumonia Severe anemia Altered mental status Plan: DO NOT RESUSCITATE ICU Moved to the floor when able Diagnosis/Problems Diagnosis/Problems (1) Sepsis Status: Acute Qualifiers: Sepsis type: sepsis due to unspecified organism Severe sepsis acute organ dysfunction type: unspecified Severe sepsis shock status: without septic shock (2) Pneumonia Status: Acute Qualifiers: Pneumonia type: due to unspecified organism Laterality: right Lung location: lower lobe of lung Qualified Codes: J18.9 - Pneumonia, unspecified organism (3) Urinary tract infection Status: Acute Qualifiers: Urinary tract infection type: acute cystitis Hematuria presence: without hematuria Qualified Codes: N30.00 - Acute cystitis without hematuria (4) Constipation Status: Acute STEPHANIE LUCERO DO Apr 16, 2021 05:35
[2021-04-16] MEDS: MEROPENEM 1,000 MG in WATER (STERILE) FOR INJECTION 20 ML IV SCH ×3 (05:43→21:04)
[2021-04-16] MEDS: KCL 20 MEQ TAB (K-DUR) PO SCH (06:42)
[2021-04-16] MEDS: POTASSIUM CL 10MEQ/50ML IVPB 50 ML IV SCH ×3 (06:42→07:51)
[2021-04-16] MEDS: RT-ALBUTEROL/IPRATROPIUM 3 ML (DUONEB) VIAL INH SCH ×4 (06:58→19:10)
[2021-04-16] MEDS: PANTOPRAZOLE 20 MG TABLET (PROTONIX) PO SCH ×2 (07:02→14:57)
[2021-04-16] MEDS: MULTIVIT W/MINERALS TAB (THERAGRAN M) PO SCH (07:03)
[2021-04-16] MEDS: VITAMIN D3 25 MCG (1,000 UNITS) TABLET PO SCH (07:49)
[2021-04-16] MEDS: FENOFIBRATE 134 MG (LOFIBRA) CAPSULE PO SCH (07:49)
[2021-04-16] MEDS: LORazepam 1 MG (ATIVAN) TAB PO SCH ×2 (07:49→17:04)
[2021-04-16] MEDS: ATENOLOL 50 MG (TENORMIN) TAB PO SCH (07:50)
[2021-04-16] MEDS: meTOproloL SUCCINATE 50 MG (TOPROL XL) TAB PO SCH (07:50)
[2021-04-16] MEDS: CYCLOBENZAPRINE 10 MG (FLEXERIL) TAB PO SCH (07:50)
[2021-04-16] MEDS: risperiDONE 0.5 MG (RisperDAL) TABLET PO SCH ×2 (07:50→21:10)
[2021-04-16] MEDS: FLUoxetine HCL 20 MG (PROzac) CAP PO SCH (07:50)
[2021-04-16] MEDS: PANTOPRAZOLE 40 MG (PROTONIX) VIAL IV SCH (07:50)
--- NOTE | 2021-04-16 08:02 | Physical Therapy Progress Note ---
Therapy Progress Note Patient transferred to ICU due to change in status. PT will require new orders to resume skilled therapy when patient is able to safely and actively participate. ZOHRA HYATT PT Apr 16, 2021 08:02
[2021-04-16] MEDS: polyethylene glycoL POWDER 17 GM (MIRALAX) PACK PO SCH ×2 (08:06→21:10)
[2021-04-16] MEDS: SENNA W/DOCUSATE (SENOKOT S) TABLET PO SCH ×2 (08:06→21:10)
[2021-04-16] MEDS: DOCUSATE SODIUM 100 MG (COLACE) CAP PO SCH ×2 (08:06→21:04)
[2021-04-16] MEDS: LACTULOSE SYRUP 10GM/15ML (ENULOSE) 30ML UDC PO SCH ×2 (08:06→21:10)
--- NOTE | 2021-04-16 08:29 | Progress Note - Cardiology ---
Cardiology SOAP Progress Note Subjective: Sitting up in bed this morning Signif other at the bedside Continues to feel SOB, but feels it is better than yesterday No c/o CP More alert and appropriate this morning Objective: I&O/Vital Signs 04/15/21 04/15/21 04/15/21 04/16/21 22:00 22:30 23:00 00:00 Temp 35.8 Pulse 96 87 Resp 20 23 B/P (MAP) 114/92 (99) 142/69 (93) Pulse Ox 96 94 O2 Delivery High Flow N/C High Flow N/C High Flow N/C O2 Flow Rate 8.00 6.00 6.00 04/16/21 04/16/21 04/16/21 04/16/21 00:00 01:00 01:00 02:00 Pulse 86 87 87 84 Resp 20 19 21 B/P (MAP) 139/78 (98) 114/62 (79) 123/78 (93) Pulse Ox 96 96 95 O2 Delivery High Flow N/C High Flow N/C High Flow N/C O2 Flow Rate 6.00 4.00 6.00 04/16/21 04/16/21 04/16/21 04/16/21 03:00 04:00 04:00 05:00 Temp 35.7 Pulse 86 89 85 Resp 22 15 23 B/P (MAP) 132/75 (94) 117/53 (74) 117/87 (97) Pulse Ox 93 92 90 O2 Delivery High Flow N/C High Flow N/C High Flow N/C High Flow N/C O2 Flow Rate 6.00 4.00 4.00 4.00 04/16/21 04/16/21 04/16/21 04/16/21 05:30 06:00 07:00 07:00 Pulse 90 92 92 Resp 24 18 B/P (MAP) 132/67 (88) 144/75 (98) Pulse Ox 92 91 O2 Delivery High Flow N/C High Flow N/C High Flow N/C O2 Flow Rate 5.00 5.00 5.00 04/16/21 04/16/21 04/16/21 07:00 07:55 08:00 Temp 36.6 Pulse 93 Resp 16 B/P (MAP) 137/89 (105) Pulse Ox 92 89 O2 Delivery High Flow N/C High Flow N/C O2 Flow Rate 5.00 5.00 04/16/21 00:00 Intake Total 0 ml Output Total 920 ml Balance -920 ml Constitutional: AAO x 3, well-developed, well-nourished Respiratory: other (coarse breath sounds throughout all smith; dyspneic with simple conversation) Cardiovascular: regular rate-rhythm; No JVD; S1 and S2 Gastrointestional: No tender; soft; No guarding; audible bowel sounds Extremities: no lower extremity edema bilateral Neurologic/Psychiatric: other (moves all her limbs equally) Skin: pallor Results/Procedures: Labs Laboratory Tests 04/15/21 14:30: Urine Color YELLOW, Urine Clarity CLEAR, Urine pH 5.5, Urine Specific [place] 1.010L, Urine Protein NEGATIVE, Urine Glucose (UA) NEGATIVE, Urine Ketones NEGATIVE, Urine Nitrite NEGATIVE, Urine Bilirubin NEGATIVE, Urine Urobilinogen 0.2, Urine Leukocyte Esterase NEGATIVE, Urine RBC (Auto) NEGATIVE, Urine RBC NONE, Urine WBC NONE, Urine Squamous Epithelial Cells RARE, Urine Crystals NONE, Urine Bacteria NEGATIVE, Urine Casts NONE, Urine Mucus NEGATIVE, Urine Culture Indicated NO 04/15/21 18:00: White Blood Count 7.2, Red Blood Count 3.50L, Hemoglobin 10.5#L, Hematocrit 32L, Mean Corpuscular Volume 90, Mean Corpuscular Hemoglobin 30, Mean Corpuscular Hemoglobin Concent 33, Red Cell Distribution Width 16.3H, Platelet Count 281, Mean Platelet Volume 9.9, Prothrombin Time 21.3H, INR Comment 1.8H, Potassium Level 3.6, Magnesium Level 1.5L 04/16/21 03:50: White Blood Count 6.5, Red Blood Count 3.45L, Hemoglobin 10.4L, Hematocrit 31L, Mean Corpuscular Volume 91, Mean Corpuscular Hemoglobin 30, Mean Corpuscular Hemoglobin Concent 33, Red Cell Distribution Width 16.6H, Platelet Count 266, Mean Platelet Volume 10.2, Potassium Level 3.4L, Magnesium Level 1.9, Immature Granulocyte % (Auto) 1, Neutrophils (%) (Auto) 87H, Lymphocytes (%) (Auto) 9L, Monocytes (%) (Auto) 3, Eosinophils (%) (Auto) 0, Basophils (%) (Auto) 0, Neutrophils # (Auto) 5.6, Lymphocytes # (Auto) 0.6L, Monocytes # (Auto) 0.2, Eosinophils # (Auto) 0.0, Basophils # (Auto) 0.0, Immature Granulocyte # (Auto) 0.1, Neutrophils % (Manual) 88, Lymphocytes % (Manual) 4, Monocytes % (Manual) 3, Band Neutrophils 5, Polychromasia MODERATE, Blood Morphology Comment NA, Sodium Level 140, Chloride Level 100, Carbon Dioxide Level 26, Anion Gap 14, Blood Urea Nitrogen 8, Creatinine 0.51L, Estimat Glomerular Filtration Rate 117, BUN/Creatinine Ratio 16, Glucose Level 96, Calcium Level 8.3L Microbiology 04/12/21 Blood Culture - Preliminary, Resulted No growth 04/11/21 Urine Culture - Final, Complete A/P: Assessment: Sepsis - management per Medical services - resolved UTI - management per medical services - resolved Pneumonia - management per medical serviced/eICU Ac diastolic CHF - Echo on 04/15/21: LVEF 55-60, PASP 60-65 mmHg H/O tobaccoism - quit in February 2021 Probable COPD Pulmonary hypertension of undetermined etiology AMS - likely d/t hypoxia/anemia - improved HTN - controlled HLD - h/o statin tx Probable COPD Severe anemia of undetermined etiology - Dr. Williamson managing - endoscopy today is not reported to have shown any obvious bleed - H/H improved following transfusion PAF, seen on tele on 04/15/21 - OAC with Eliquis has been advised, if ok with medical/surgical services Recent back surgery by Dr. Reece in [place], [place] (March 30, 2021) Anxiety/Depression Plan: Complex management due to to multiple comorbidities IV diuretics as indicated Management of anemia is per surgical services - H/H improved following transfusion Eliquis recommended for stroke prophylaxis, given PAF, if no active bleed and if approved by the Med and Surg services Monitor lab closely and replace electrolytes as indicated RAFI GRIFFIN Apr 16, 2021 08:29
[2021-04-16] MEDS: FUROSEMIDE 40 MG/4 ML INJ (LASIX) IVP SCH (08:52)
--- NOTE | 2021-04-16 09:27 | Tele-ICU Progress Note ---
Subjective Date Seen by a Provider: Apr 16, 2021 Time Seen by a Provider: 09:26 Sepsis Event Evaluation Height, Weight, BMI Height: '" Weight: lbs. oz. kg; 24.02 BMI Method: Focused Exam Lactate Level 04/15/21 05:55: Lactic Acid Level 0.91 Time of Focused Exam: 18:15 Exam Exam Patient acknowledged, consented, and participated in this virtual visit which was conducted using real time audio/video Vital Signs Date Time Temp Pulse Resp B/P (MAP) Pulse Ox O2 Delivery O2 Flow Rate FiO2 04/16/21 08:00 93 16 137/89 (105) 89 High Flow N/C 5.00 04/16/21 07:55 36.6 04/16/21 07:00 92 High Flow N/C 5.00 04/16/21 07:00 92 18 144/75 (98) 91 High Flow N/C 5.00 04/16/21 07:00 92 04/16/21 06:00 90 24 132/67 (88) 92 High Flow N/C 5.00 04/16/21 05:30 High Flow N/C 5.00 04/16/21 05:00 85 23 117/87 (97) 90 High Flow N/C 4.00 04/16/21 04:00 35.7 High Flow N/C 4.00 04/16/21 04:00 89 15 117/53 (74) 92 High Flow N/C 4.00 04/16/21 03:00 86 22 132/75 (94) 93 High Flow N/C 6.00 04/16/21 02:00 84 21 123/78 (93) 95 High Flow N/C 6.00 04/16/21 01:00 87 04/16/21 01:00 87 19 114/62 (79) 96 High Flow N/C 4.00 04/16/21 00:00 86 20 139/78 (98) 96 High Flow N/C 6.00 04/16/21 00:00 35.8 04/15/21 23:00 87 23 142/69 (93) 94 High Flow N/C 6.00 04/15/21 22:30 High Flow N/C 6.00 04/15/21 22:00 96 20 114/92 (99) 96 High Flow N/C 8.00 04/15/21 21:03 36.7 04/15/21 21:00 95 20 117/68 (84) 97 High Flow N/C 8.00 04/15/21 21:00 36.5 04/15/21 20:33 38.3 04/15/21 20:15 High Flow N/C 8.00 04/15/21 20:00 100 25 147/78 (101) 91 High Flow N/C 10.00 04/15/21 20:00 95 Nasal Cannula 8.00 04/15/21 19:45 38.3 04/15/21 19:30 High Flow N/C 10.00 04/15/21 19:27 90 High Flow N/C 10.00 04/15/21 19:00 98 25 163/96 (118) 93 High Flow N/C 8.00 04/15/21 19:00 100 04/15/21 18:00 98 17 145/83 (103) 93 High Flow N/C 8.00 04/15/21 17:00 100 36 150/73 (98) 97 High Flow N/C 8.00 04/15/21 16:46 37.0 04/15/21 16:45 37.5 04/15/21 15:29 95 OxyMask 6.00 04/15/21 14:00 94 Nasal Cannula 8.00 04/15/21 13:57 100 04/15/21 12:52 37.1 96 40 123/77 94 Nasal Cannula 5.00 04/15/21 12:50 37.1 96 40 123/77 94 Nasal Cannula 5.00 04/15/21 12:12 37.0 91 40 123/77 (92) 94 OxyMask 5.00 04/15/21 10:33 35.3 92 36 103/63 92 Nasal Cannula 5.00 04/15/21 10:33 35.3 92 36 103/63 92 Nasal Cannula 5.00 04/15/21 10:14 34.6 74 40 100/65 90 Nasal Cannula 5.00 I & O 04/16/21 07:00 Intake Total 0 ml Output Total 1120 ml Balance -1120 ml Height & Weight Height: '" Weight: lbs. oz. kg; 24.02 BMI Method: General Appearance: No Apparent Distress, WD/WN, Chronically ill, Thin HEENT: PERRL/EOMI Neck: Normal Inspection Respiratory: Lungs Clear, Normal Breath Sounds Cardiovascular: Regular Rate, Rhythm Capillary Refill: Less Than 3 Seconds Extremity: Normal Inspection, No Calf Tenderness, No Pedal Edema Neurologic/Psychiatric: Alert, Other (somewhat confused) Skin: Warm/Dry, Pallor Lymphatic: No Adenopathy Results Lab Laboratory Tests 04/15/21 05:55 04/15/21 18:00 04/16/21 03:50 Assessment/Plan Assessment/Plan (Tele-ICU Physician , consultation) Available chart/ vitals / labs / Images reviewed H&P is from ER notes Patient's information available about PMH, Shx, Fhx allergy reviewed in EMR. ROS as per chart and RN report Patient admitted 04/11- 75 yr old female admitted D with sepsis 04/15 - transferred to ICU wth a flatter 140 , hypoxia, anemia 04/15 - EGD - Barretts, NO ACIVE BLEEDIGN Now in ICU, hemodynamically stable HR 140 , AAo , + sob , no CP Video assessment done using teleICU camera, rest of exam as per RN Discussed with RN. Consultants: cards, Sx A/P ANEMIA - hb 6 .2 - s/p # unit of PRBC - Hb 10 , stable -coagulopathy INR 1.8 - no active bleeding today - EGD 04/15 - Barretts, NO ACIVE BLEEDIGN - LGIB ? Hypoxia - with PNA - also possible VO- lasix today ( RVSP 65 on ECHO Confusion - AAOx1 - ? baseline A flatter 04/15 - converted to sinus with HR 90 - replace lytes , follow closely , cards consulted - ECHO 04/15 - EF 55% , RVSP 65 Sepsis - on admission , nor new RLL PNA - resuscitation with pRBC first , abx initiated UTI - by UA , no cx Elevated BNP - mild - follow after transfusion Probable COPD as per chart - cont nebs Recent lumbar spine surgery Lines : midline (Central Line Necessity Reviewed) Hunter: + OG: Nutrition: NPO Analgesia: Anxiety/ delirium VTE Prophylaxis: SCD Stress Ulcer Prophylaxis: ppi Glycemic Control: + Plans in collaboration with bedside consultants and IM MDs. Discussed with RN to reach out if any questions or concerns A total of 35 minutes of critical care time was devoted to this patient today, required to treat and/or prevent further deterioration of critical care condition ( as above ERNST ALONZO MD Apr 16, 2021 09:26
[2021-04-16] MEDS ORDERED: KCL 20 MEQ TAB (K-DUR) PO ONE (09:45)
--- NOTE | 2021-04-16 10:57 | Cardiology Progress Note ---
Progress Note-Cardiology Events since last exam Date Seen by Provider: Apr 16, 2021 Time Seen by Provider: 10:52 Events since last exam We are seeing her due to acute diastolic heart failure. Overnight, she was extubated. She received a hydrocodone earlier today and is very drowsy. I did get her to open her eyes and answer one question. She denied chest discomfort. When I asked her where she was, she fell back to sleep. Certain portions of this document may have been dictated utilizing voice recognition technology. Inherent to this technology, typographical and grammatical errors may exist. As much as I am diligent to identify and correct these mistakes, some errors may remain in the document. Vitals Last set of Vitals Signs Vital Signs 04/16/21 04/16/21 04/16/21 07:55 10:00 10:22 Temp 36.6 Pulse 85 Resp 30 B/P (MAP) 140/74 (96) Pulse Ox 93 O2 Delivery High Flow N/C O2 Flow Rate 5.00 Labs Labs Laboratory Tests 04/15/21 18:00 04/16/21 03:50 Exam Vital Signs Vital Signs Date Time Temp Pulse Resp B/P (MAP) Pulse Ox O2 Delivery O2 Flow Rate FiO2 04/16/21 10:22 93 High Flow N/C 5.00 04/16/21 10:00 85 30 140/74 (96) 04/16/21 07:55 36.6 Physical Exam General: Very somnolent, barely arousable to voice. No acute distress. Eye: No xanthelasma. HENT: Normocephalic. Neck: Jugular venous pressure does not appear elevated. Respiratory: Lungs are clear to auscultation. Respirations are non-labored. Breath sounds are equal. Symmetrical chest wall expansion. Cardiovascular: Normal rate. Regular rhythm. No murmur. No gallop. No edema. Gastrointestinal: Soft. Normal bowel sounds. Skin: Warm. Dry. Neurologic: Somnolent. Cranial nerves 3-11 grossly intact. Psychiatric: Somnolent. Labs Laboratory Tests Test 04/15/21 14:30 04/15/21 18:00 04/16/21 03:50 Range/Units Urine Color YELLOW Urine Clarity CLEAR Urine pH 5.5 5-9 Urine Specific [place] 1.010 L 1.016-1.022 Urine Protein NEGATIVE NEGATIVE Urine Glucose (UA) NEGATIVE NEGATIVE Urine Ketones NEGATIVE NEGATIVE Urine Nitrite NEGATIVE NEGATIVE Urine Bilirubin NEGATIVE NEGATIVE Urine Urobilinogen 0.2 < = 1.0 MG/DL Urine Leukocyte Esterase NEGATIVE NEGATIVE Urine RBC (Auto) NEGATIVE NEGATIVE Urine RBC NONE /HPF Urine WBC NONE /HPF Urine Squamous Epithelial Cells RARE /HPF Urine Crystals NONE /LPF Urine Bacteria NEGATIVE /HPF Urine Casts NONE /LPF Urine Mucus NEGATIVE /LPF Urine Culture Indicated NO White Blood Count 7.2 6.5 4.3-11.0 10^3/uL Red Blood Count 3.50 L 3.45 L 3.80-5.11 10^6/uL Hemoglobin 10.5 #L 10.4 L 11.5-16.0 g/dL Hematocrit 32 L 31 L 35-52 % Mean Corpuscular Volume 90 91 80-99 fL Mean Corpuscular Hemoglobin 30 30 25-34 pg Mean Corpuscular Hemoglobin Concent 33 33 32-36 g/dL Red Cell Distribution Width 16.3 H 16.6 H 10.0-14.5 % Platelet Count 281 266 130-400 10^3/uL Mean Platelet Volume 9.9 10.2 9.0-12.2 fL Prothrombin Time 21.3 H 12.2-14.7 SEC INR Comment 1.8 H 0.8-1.4 Potassium Level 3.6 3.4 L 3.6-5.0 MMOL/L Magnesium Level 1.5 L 1.9 1.6-2.4 MG/DL Immature Granulocyte % (Auto) 1 % Neutrophils (%) (Auto) 87 H 42-75 % Lymphocytes (%) (Auto) 9 L 12-44 % Monocytes (%) (Auto) 3 0-12 % Eosinophils (%) (Auto) 0 0-10 % Basophils (%) (Auto) 0 0-10 % Neutrophils # (Auto) 5.6 1.8-7.8 10^3/uL Lymphocytes # (Auto) 0.6 L 1.0-4.0 10^3/uL Monocytes # (Auto) 0.2 0.0-1.0 10^3/uL Eosinophils # (Auto) 0.0 0.0-0.3 10^3/uL Basophils # (Auto) 0.0 0.0-0.1 10^3/uL Immature Granulocyte # (Auto) 0.1 0.0-0.1 10^3/uL Neutrophils % (Manual) 88 % Lymphocytes % (Manual) 4 % Monocytes % (Manual) 3 % Band Neutrophils 5 % Polychromasia MODERATE Blood Morphology Comment NA Sodium Level 140 135-145 MMOL/L Chloride Level 100 98-107 MMOL/L Carbon Dioxide Level 26 21-32 MMOL/L Anion Gap 14 5-14 MMOL/L Blood Urea Nitrogen 8 7-18 MG/DL Creatinine 0.51 L 0.60-1.30 MG/DL Estimat Glomerular Filtration Rate 117 BUN/Creatinine Ratio 16 Glucose Level 96 70-105 MG/DL Calcium Level 8.3 L 8.5-10.1 MG/DL Diagnosis/Problems Diagnosis/Problems (1) Acute diastolic congestive heart failure Assessment & Plan: As above, she has been extubated. She is currently ordered for IV Lasix. Her echocardiogram from 04/15 showed a normal ejection fraction with no significant valvular disease. (2) Pulmonary hypertension Assessment & Plan: I suspect this may be multifactorial due to chronic underlying lung disease as well as acute heart failure. This will need to be followed longitudinally. (3) Acute on chronic respiratory failure with hypoxemia Assessment & Plan: Most likely related to possible exacerbation of chronic obstructive pulmonary disease with superimposed heart failure. As above, she has now been extubated. (4) Essential hypertension Assessment & Plan: Blood pressures are reasonably controlled on her outpatient dose of atenolol. This should be continued. (5) Mixed hyperlipidemia Assessment & Plan: Continue statin medication. BAR HUTSON JR, MD Apr 16, 2021 10:57
--- NOTE | 2021-04-16 11:25 | Progress Note - Hospitalist ---
REUBEN OCONNELL MED STUDENT 04/16/21 1125: Subjective HPI/CC On Admission Date Seen by Provider: Apr 16, 2021 Time Seen by Provider: 09:40 Chief complaint: Pneumonia with UTI History present illness: This is a very debilitated 75-year-old white female who presented to the ER with severe weakness and confusion and lethargy. Apparently she just had lumbar spine surgery by Dr. Reece in [place] on 03/30/2021 and was sent home and has not done well since then. She appears to be very pale and very debilitated. Her fianc is at the bedside and is heavily involved in her care and has many questions over short amount of time. Patient does not wear oxygen at home. Antibiotics were started to cover pneumonia and UTI sources. Patient has severe anemia 7.3 and appears to be very pale so we will give 1 unit of blood and she is willing to do that. Patient appears to be very declined and has cognitive deficits. Subjective/Events-last exam Pt is somnolent. Significant other states pt is still confused today. Focused Exam Lactate Level 04/15/21 05:55: Lactic Acid Level 0.91 Time of Focused Exam: 18:15 Objective Exam Vital Signs Vital Signs Date Time Temp Pulse Resp B/P (MAP) Pulse Ox O2 Delivery O2 Flow Rate FiO2 04/16/21 10:22 93 High Flow N/C 5.00 04/16/21 10:00 85 30 140/74 (96) 04/16/21 07:55 36.6 Capillary Refill : Less Than 3 Seconds General Appearance: Other (ill-appearing, somnolent) Respiratory: Decreased Breath Sounds, Other (increased work of breathing) Cardiovascular: Regular Rate, Rhythm, No Edema Gastrointestinal: Soft; No Distended Extremity: Normal Inspection, No Pedal Edema Neurologic/Psychiatric: Other (somnolent, somewhat confused) Skin: Warm/Dry, Pallor Results/Procedures Lab Laboratory Tests 04/15/21 18:00 04/16/21 03:50 Patient resulted labs reviewed. Imaging: Reviewed Imaging Films, Reviewed Imaging Report Assessment/Plan Assessment and Plan Assess & Plan/Chief Complaint anemia-worsening hgb improved at 10.4 EGD showed no source of bleed pneumonia Meropenem CHF cardiology following Lasix echocardiogram yesterday shows pulmonary artery hypertension UTI debility HTN HLD COPD Discussed code status with significant other, he says pt wants to be a full code. LAUREL LUCERO DO 04/16/21 2223: Supervisory-Addendum Brief Verification & Attestation Participated in pt care: history, MDM, physical Personally performed: exam, history, MDM, supervision of care Care discussed with: Medical Student Procedures: n/a Results interpretation: Verified all documentation Verification and Attestation of Medical Student E/M Service A medical student performed and documented this service in my presence. I reviewed and verified all information documented by the medical student and made modifications to such information, when appropriate. I personally performed the physical exam and medical decision making. Laurel Lucero, Apr 16, 2021,22:23 REUBEN OCONNELL MED STUDENT Apr 16, 2021 11:25 LAUREL LUCERO DO Apr 16, 2021 22:23
[2021-04-16] MEDS: VANCOMYCIN 1 GM/NS 250 ML IVPB IV SCH ×2 (13:35)
[2021-04-16 14:01] LABS: ABG BASE EXCESS 7.7 MMOL/L (-2.5-2.5); ABG OXYGEN SATURATION 93 % (94-100); ABG PCO2 44 MMHG (35-45); ABG PH 7.47 (7.37-7.43); ABG PO2 66 MMHG (79-93); ABG TCO2 32.7 MMOL/L (21.0-31.0)
[2021-04-16 14:04] LABS: ALLENS TEST POSITIVE; INSPIRED O2 5; PATIENT TEMP 38.1; VENTILATOR NO
[2021-04-16] MEDS: ACETAMINOPHEN 650 MG SUPP (TYLENOL) PR PRN (15:02)
[2021-04-17] VITALS (15 sets, daily range): BP systolic 97–151; BP diastolic 49–84
[2021-04-17] MEDS: ACETAMINOPHEN 500 MG TAB (TYLENOL) PO PRN ×3 (01:05→16:24)
[2021-04-17 05:57] LABS: BASOPHILS % (AUTO) 0 % (0-10); EOSINOPHILS % (AUTO) 1 % (0-10); HEMATOCRIT 33 % (35-52); HEMOGLOBIN 10.6 g/dL (11.5-16.0); LYMPHOCYTES # (AUTO) 0.7 10^3/uL (1.0-4.0); LYMPHOCYTES % (AUTO) 12 % (12-44); MEAN CORPUSCULAR HEMOGLOBIN 30 pg (25-34); MEAN CORPUSCULAR HGB CONC 33 g/dL (32-36); MEAN CORPUSCULAR VOLUME 91 fL (80-99); MEAN PLATELET VOLUME 10.2 fL (9.0-12.2); MONOCYTES # (AUTO) 0.2 10^3/uL (0.0-1.0); MONOCYTES % (AUTO) 4 % (0-12); NEUTROPHILS # (AUTO) 5.1 10^3/uL (1.8-7.8); NEUTROPHILS % (AUTO) 83 % (42-75); PLATELET COUNT 271 10^3/uL (130-400); WHITE BLOOD COUNT 6.2 10^3/uL (4.3-11.0)
[2021-04-17] MEDS: MEROPENEM 1,000 MG in WATER (STERILE) FOR INJECTION 20 ML IV SCH ×3 (05:58→21:36)
[2021-04-17] MEDS: PANTOPRAZOLE 20 MG TABLET (PROTONIX) PO SCH ×2 (06:42→16:30)
[2021-04-17] MEDS: RT-ALBUTEROL/IPRATROPIUM 3 ML (DUONEB) VIAL INH SCH ×4 (07:05→22:48)
[2021-04-17] MEDS: LORazepam 1 MG (ATIVAN) TAB PO SCH ×2 (07:20→19:13)
[2021-04-17] MEDS: CYCLOBENZAPRINE 10 MG (FLEXERIL) TAB PO SCH (07:21)
[2021-04-17] MEDS: risperiDONE 0.5 MG (RisperDAL) TABLET PO SCH ×2 (07:21→20:10)
--- NOTE | 2021-04-17 07:44 | Diagnostic Imaging Report ---
Indication: Respiratory distress COMPARISON: FINDINGS: There has been progressive and now severe consolidative changes in the right middle and lower lobes with likely increased right pleural fluid. The heart is mildly enlarged. Progressive patchy infiltrates in the right upper lobe have occurred. IMPRESSION: Worsened severe right lung infiltrates and likely increased at least small right-sided pleural fluid volume. Dictated by: Dictated on workstation # [id number]
[2021-04-17 07:46] LABS: POTASSIUM 3.6 MMOL/L (3.6-5.0)
[2021-04-17 07:47] LABS: CALCIUM 8.8 MG/DL (8.5-10.1)
[2021-04-17 07:51] LABS: CREATININE SERUM 0.47 MG/DL (0.60-1.30)
[2021-04-17 07:53] LABS: MAGNESIUM 1.7 MG/DL (1.6-2.4)
[2021-04-17] MEDS: meTOproloL SUCCINATE 50 MG (TOPROL XL) TAB PO SCH (07:54)
[2021-04-17] MEDS: FLUoxetine HCL 20 MG (PROzac) CAP PO SCH (07:54)
[2021-04-17] MEDS: ATENOLOL 50 MG (TENORMIN) TAB PO SCH (07:54)
[2021-04-17] MEDS: MULTIVIT W/MINERALS TAB (THERAGRAN M) PO SCH (07:54)
[2021-04-17] MEDS: FENOFIBRATE 134 MG (LOFIBRA) CAPSULE PO SCH (07:54)
[2021-04-17] MEDS: PANTOPRAZOLE 40 MG (PROTONIX) VIAL IV SCH (08:00)
[2021-04-17] MEDS: FUROSEMIDE 40 MG/4 ML INJ (LASIX) IVP SCH (08:00)
--- NOTE | 2021-04-17 08:00 | Physical Therapy Progress Note ---
Therapy Progress Note PT will require new orders to resume skilled therapy when patient is able to safely and actively participate. ZOHRA HYATT PT Apr 17, 2021 08:00
[2021-04-17] MEDS: SENNA W/DOCUSATE (SENOKOT S) TABLET PO SCH ×2 (08:01→20:11)
[2021-04-17] MEDS: DOCUSATE SODIUM 100 MG (COLACE) CAP PO SCH ×2 (08:01→20:10)
[2021-04-17] MEDS: polyethylene glycoL POWDER 17 GM (MIRALAX) PACK PO SCH ×2 (08:01→20:11)
[2021-04-17] MEDS: POTASSIUM CL 10MEQ/50ML IVPB 50 ML IV SCH ×3 (08:01→09:16)
[2021-04-17] MEDS: KCL 20 MEQ TAB (K-DUR) PO SCH (08:01)
[2021-04-17] MEDS: LACTULOSE SYRUP 10GM/15ML (ENULOSE) 30ML UDC PO SCH ×2 (08:01→20:11)
[2021-04-17] MEDS: VITAMIN D3 25 MCG (1,000 UNITS) TABLET PO SCH (08:02)
[2021-04-17] MEDS: MAGNESIUM 1 GM/100 ML IVPB 100 ML IV SCH ×2 (08:22→08:26)
--- NOTE | 2021-04-17 09:11 | Tele-ICU Progress Note ---
Subjective Date Seen by a Provider: Apr 17, 2021 Subjective/Events-last exam ANEMIA - hb 6 .2 - s/p # unit of PRBC - Hb 10 , stable -coagulopathy INR 1.8 - no active bleeding today - EGD 04/15 - Barretts, NO ACIVE BLEEDIGN - LGIB ? Hypoxia - with PNA - also possible VO- lasix today ( RVSP 65 on ECHO Confusion - AAOx1 - ? baseline A flatter 04/15 - converted to sinus with HR 90 - replace lytes , follow closely , cards consulted - ECHO 04/15 - EF 55% , RVSP 65 Sepsis - on admission , nor new RLL PNA - resuscitation with pRBC first , abx initiated UTI - by UA , no cx Elevated BNP - mild - follow after transfusion Probable COPD as per chart - cont nebs Recent lumbar spine surgery Lines : midline (Central Line Necessity Reviewed) Hunter: + OG: Nutrition: NPO Analgesia: Anxiety/ delirium VTE Prophylaxis: SCD Stress Ulcer Prophylaxis: ppi Glycemic Control: + Sepsis Event Evaluation Height, Weight, BMI Height: '" Weight: lbs. oz. kg; 24.02 BMI Method: Focused Exam Lactate Level 04/15/21 05:55: Lactic Acid Level 0.91 Time of Focused Exam: 18:15 Exam Exam Patient acknowledged, consented, and participated in this virtual visit which was conducted using real time audio/video Vital Signs Date Time Temp Pulse Resp B/P (MAP) Pulse Ox O2 Delivery O2 Flow Rate FiO2 04/17/21 09:00 78 10 131/84 (89) 94 High Flow N/C 5.00 04/17/21 08:12 35.8 04/17/21 08:00 Nasal Cannula 5.00 04/17/21 08:00 95 13 129/79 (84) 92 High Flow N/C 5.00 04/17/21 07:06 96 High Flow N/C 5.00 04/17/21 07:00 77 04/17/21 07:00 70 17 119/65 (86) 96 High Flow N/C 5.00 04/17/21 06:00 69 23 127/67 (87) 92 High Flow N/C 5.00 04/17/21 05:00 64 25 122/60 (80) 94 High Flow N/C 5.00 04/17/21 04:00 High Flow N/C 5.00 04/17/21 04:00 62 20 97/49 (65) 94 High Flow N/C 5.00 04/17/21 03:00 67 27 133/67 (89) 93 High Flow N/C 5.00 04/17/21 02:27 36.4 04/17/21 02:00 76 23 123/62 (82) 91 High Flow N/C 5.00 04/17/21 01:35 36.4 04/17/21 01:05 37.9 04/17/21 01:00 93 04/17/21 01:00 93 16 151/80 (103) 90 High Flow N/C 5.00 04/17/21 00:00 36.9 04/17/21 00:00 High Flow N/C 5.00 04/17/21 00:00 82 33 138/77 (97) 92 High Flow N/C 5.00 04/16/21 23:00 79 25 139/78 (98) 93 High Flow N/C 5.00 04/16/21 22:00 73 27 115/73 (87) 93 High Flow N/C 5.00 04/16/21 21:00 69 25 118/64 (82) 94 High Flow N/C 5.00 04/16/21 20:00 High Flow N/C 5.00 04/16/21 20:00 71 23 115/66 (82) 95 High Flow N/C 5.00 04/16/21 19:37 36.2 04/16/21 19:10 95 High Flow N/C 5.00 04/16/21 19:00 80 30 121/72 (88) 94 High Flow N/C 5.00 04/16/21 19:00 80 04/16/21 18:00 71 31 115/68 (84) 94 High Flow N/C 5.00 04/16/21 17:50 36.1 04/16/21 17:00 71 27 120/61 (80) 94 High Flow N/C 5.00 04/16/21 16:30 38.2 04/16/21 16:00 86 36 122/61 (81) 90 High Flow N/C 5.00 04/16/21 15:35 38.3 04/16/21 15:28 Nasal Cannula 5.00 04/16/21 15:08 39.8 7/29/21 15:02 39.6 04/16/21 15:00 92 23 137/72 (93) 91 High Flow N/C 5.00 04/16/21 14:39 94 High Flow N/C 5.00 04/16/21 14:00 89 21 154/86 (108) 94 High Flow N/C 5.00 04/16/21 13:00 86 33 143/77 (99) 93 High Flow N/C 5.00 04/16/21 12:47 85 04/16/21 12:00 84 33 141/75 (97) 93 High Flow N/C 5.00 04/16/21 12:00 90 Nasal Cannula 5.00 04/16/21 11:40 36.0 04/16/21 11:00 73 25 132/62 (85) 92 High Flow N/C 5.00 04/16/21 10:22 93 High Flow N/C 5.00 04/16/21 10:00 85 30 140/74 (96) 93 High Flow N/C 5.00 I & O 04/17/21 07:00 Intake Total 1230 ml Output Total 1750 ml Balance -520 ml Height & Weight Height: '" Weight: lbs. oz. kg; 24.02 BMI Method: General Appearance: No Apparent Distress, Chronically ill HEENT: PERRL/EOMI Neck: Normal Inspection Respiratory: Lungs Clear, Decreased Breath Sounds Cardiovascular: Regular Rate, Rhythm Capillary Refill: Less Than 3 Seconds Extremity: Normal Inspection, No Pedal Edema Neurologic/Psychiatric: Alert, Depressed Affect Skin: Warm/Dry, Pallor Lymphatic: No Adenopathy Results Lab Laboratory Tests 04/15/21 18:00 04/16/21 03:50 04/17/21 05:50 04/17/21 07:28 Assessment/Plan Assessment/Plan PNA, COVID neg, on IV Vanco, meropenem will continue above meds, oxygen, DAVIAN SHIRLEY MD Apr 17, 2021 09:10
--- NOTE | 2021-04-17 10:35 | Physical Therapy Evaluation ---
PT Evaluation-General Medical Diagnosis Admission Date Apr 11, 2021 at 18:09 Medical Diagnosis: Sepsis/pneumonia Onset Date: Apr 11, 2021 Therapy Diagnosis Therapy Diagnosis: debility/weakness Precautions Precautions/Isolations: Fall Prevention, Standard Precautions, Pressure Ulcer Referral Physician: Venancio Reason for Referral: Evaluation/Treatment Medical History Pertinent Medical History: COPD, HTN Current History Patient transferred to ICU due to decline in status. Patient improved for PT to evaluate. Reviewed History: Yes Social History Home: Single Level Current Living Status: Significant Other Entry Into Home: Stairs Without Railing PT Steps Into Home: 1 Prior Prior Level of Function SCALE: Activities may be completed with or without assistive devices. 4-Gpojfhtqsh-lqjxodp completes the activity by him/herself with no assistance from a helper. 5-Set-up or Clean-up Assistance-helper sets up or cleans up; patient completes activity. [place] assists only prior to or following the activity. 4-Supervision or Touching Assistance-helper provides verbal cues and/or touching/steadying and/or contact guard assistance as patient completes activity. Assistance may be provided throughout the activity or intermittently. 3-Partial/Moderate Assistance-helper does LESS THAN HALF the effort. [place] lifts, holds or supports trunk or limbs, but provides less than half the effort. 2-Substantial/Maximal Assistance-helper does MORE THAN HALF the effort. [place] lifts or holds trunk or limbs and provides more than half the effort. 9-Caaurccsz-uiofqx does ALL the effort. Patient does none of the effort to complete the activity. Or, the assistance of 2 or more helpers is required for the patient to complete the activity. If activity was not attempted, code reason: 7-Patient Refused. 9-Not Applicable-not attempted and the patient did not perform the activity before the current illness, exacerbation or injury. 10-Not Attempted due to Environmental Limitations-(lack of equipment, weather restraints, etc.). 88-Not Attempted due to Medical Conditions or Safety Concerns. Bed Mobility: 6 Transfers (B,C,W/C): 6 Gait: 6 Indoor Mobility (Ambulation): Independent Stairs: Independent PT Evaluation-Current Subjective Patient and family are very agreeable to participate with PT. Pain Numeric Pain Scale: 3 Location: Lower Location Body Site: Back Pain Description: Ache Objective Patient Orientation: Person, Time, Situation Attachments: Oxygen, IV ROM/Strength ROM Lower Extremities bilateral LE WFL Strength Lower Extremities 3+/5 grossly bilateral LE Integumentary/Posture Integumentary refer to nursing notes Bowel Incontinence: No Bladder Incontinence: Hunter Cath Posture WFL Neuromuscular (Tone, Coordination, Reflexes) grossly intact Sensory Vision: Wears Glasses Hearing: Functional Sensation Right Lower Extremit: Intact Sensation Left Lower Extremity: Intact Transfers Roll Left to Right (QC): 4 Lying to Sitting/Side of Bed(Q: 4 Sit to Stand (QC): 4 Chair/Tae-kl-Wqppy Xfer(QC): 4 SBA with all mobility Gait Does the Patient Walk?: Yes Mode of Locomotion: Walk Anticipated Mode of Locomotion: Walk Walk 10 feet (QC): 4 Walk 50 ft with 2 Turns(QC): 4 Walk 150 ft (QC): 88 Distance: 50' Gait Assistive Device: FWW Comments/Gait Description safe and functional with no deviation Balance Sitting Static: Normal Sitting Dynamic: Normal Standing Static: Good Standing Dynamic: Good Treatment PT assist with donning LSO Assessment/Needs 75 y.o. female, will be seen short term by skilled PT to address functional strength and mobility to ensure safe return to home with family at maximum LOF. Rehab Potential: Fair PT Fdc Goals Fdc Goals PT Maintenance Of Way Foreman Goals Time Frame: Apr 25, 2021 Roll Left & Right (QC): 5 Sit to Lying (QC): 5 Lying-Sitting on Side/Bed(QC): 5 Sit to Stand (QC): 5 Chair/Rtm-xi-Ysjfa Xfer(QC): 5 Toilet Transfer (QC): 5 Walk 10 feet (QC): 5 Walk 50ft with 2 Turns (QC): 5 Walk 150 ft (QC): 5 PT Plan Problem List Problem List: Activity Tolerance, Functional Strength, Safety Treatment/Plan Treatment Plan: Continue Plan of Care Treatment Plan: Bed Mobility, Education, Functional Activity Tosin, Functional Strength, Gait, Safety, Therapeutic Exercise, Transfers Treatment Duration: Apr 25, 2021 Frequency: 6 times per week Estimated Hrs Per Day: .25 hour per day Patient and/or Family Agrees t: Yes Discharge Recommendations Therapy Discharge Recommendati: Home & Family Time/GCodes Time In: 1006 Time Out: 1023 Total Billed Treatment Time: 17 Total Billed Treatment 1 visit EVMod 17 min ZOHRA HYATT PT Apr 17, 2021 10:35
--- NOTE | 2021-04-17 14:16 | ST Dysphagia Evaluation ---
Speech Evaluation-General Medical Diagnosis Sepsis/pneumonia Onset Date: Apr 11, 2021 Therapy Diagnosis Therapy Diagnosis: Oropharyngeal Precautions Precautions: Aspiration Precautions/Isolations: Aspiration Referral Referring Physician: Dr. Craft Medical History Pertinent Medical History: COPD, HTN Reviewed History: Yes Social History Current Living Status: Significant Other Speech PLF/Current-Dysphagia Prior Level of Function Patient lives in her own home with her SO who assists her with her daily needs. Subjective Patient was cooperative with the Bedside Dysphagia Evaluation. Family was present. Oral Motor Skills Denture Type: Full- Upper & Lower Current Food Consistancy: Clear Liquids Ability to Follow Directions: Good Oral Expression Ability: No Impairment Voice Voice Phonatory-Based Quality: Breathy, Weak Voice Pitch: Normal Voice Loudness: Mildly Soft/Quiet Face Facial Symmetry: Symmetrical Oral-Facial Assessment Oral-Facial Dentition: Normal Lingual Protrusion: Normal Lingual ROM: Normal Lingual Strength: Normal Pharynx Velopharyngeal Move.: Normal Volitional Dry Swallow: Yes Voluntary Cough: Yes Can Clear Throat Volitionally: Yes Dysphagia Evaluation Consistencies Presented: Regular, Thin Liquid, Mechanical Soft, Pureed Oral phase is within normal limits for presented presentations with the exception of regular. Patient had difficulty with the regular due to sores under her dentures. Pharyngeal phase is within normal limits for presented presentations with the exception of regular. Patient had difficulty with the regular due to sores under her dentures and bolus management. Dietary Recommendations: Mechanical Soft Liquid Recommendations: Thin Swallowing Precautions: Alternate Liquids/Solids, Double Swallow, Decreased Bolus 1/2 Tsp, Liquids from Straw, Liquids from Spoon, Small Bites and Sips, Sitting Upright 90 Degrees, Sitting 90 Degrees 30 Post Intake Dysphagia Evaluation Summary Patient was admitted to the hospital due to sepsis and pneumonia. Patient has had a complex admission and has been in ICU. She was moved to the fourth floor due to making progress. The patient was referred for a BDE due to progress made. She was on a clear liquid diet. She was given 1/2 tsp trials x2 of thin liquids and small sips of thin liquids x2 without difficulty. She was also given 1/2 tsp of puree and mechanical soft without difficulty. She was given a trial of regular texture (cracker) which was difficult to manage due to ill fitting dentures and gum sores. The patient is recommended for Dysphagia II diet level with thin liquids. This information was provided to her nurse and written on the white board in her room.. Barriers to Learning Patient's medical status, age Speech-Plan Patient/Family Goals Patient/Family Goals: Patient plans on returning to her home where she lives with her SO. Treatment Plan Speech Therapy Treatment Plan: Discontinue ST Treatment Duration: Apr 17, 2021 Frequency: 1 time per week Estimated Hrs Per Day: .25 hour per day Rehab Potential: Fair Safety Risks/Education Education Topics Provided: Patient's medical status, age Time Speech Therapy Time In: 14:00 Speech Therapy Time Out: 14:15 Total Billed Time: 15 Billed Treatment Time 1, GENO QUINONES [address] ST Apr 17, 2021 14:16
[2021-04-17] MEDS: VANCOMYCIN 1 GM/NS 250 ML IVPB IV SCH ×2 (14:30)
--- NOTE | 2021-04-17 15:34 | Occupational Therapy Eval ---
OT Evaluation-General/PLF Medical Diagnosis Admission Date Apr 11, 2021 at 18:09 Medical Diagnosis: Sepsis/pneumonia Onset Date: Apr 11, 2021 Therapy Diagnosis Therapy Diagnosis: weakness Precautions Precautions/Isolations: Aspiration Weight Bear Status Weight Bearing Restriction: Weight Bearing/Tolerated Referral Physician: Venancio Mejia Reason: Activity Tolerance, Self Care, Evaluation/Treatment, Strengthening/ROM Referral Comments Back precautions, back brace on when up. Medical History Pertinent Medical History: COPD, HTN Additional Medical History Anemia, UTI Current History Pt. had lumbar surgery on 03-30-21. Went home and continued to worsen. Came to hospital with sepsis/pneumonia. Worsened and went to ICU. Pt. just returned to medical floor. Continued orders for OT services. Reviewed History: Yes Social History Home: Single Level Current Living Status: Significant Other Entry Into Home: Stairs Without Railing Steps Into Home: 1 ADL-Prior Level of Function SCALE: Activities may be completed with or without assistive devices. 8-Vpnwhhisxm-qsaqecp completes the activity by him/herself with no assistance from a helper. 5-Set-up or Clean-up Assistance-helper sets up or cleans up; patient completes activity. [place] assists only prior to or following the activity. 4-Supervision or Touching Assistance-helper provides verbal cues and/or touching/steadying and/or contact guard assistance as patient completes activity. Assistance may be provided throughout the activity or intermittently. 3-Partial/Moderate Assistance-helper does LESS THAN HALF the effort. [place] lifts, holds or supports trunk or limbs, but provides less than half the effort. 2-Substantial/Maximal Assistance-helper does MORE THAN HALF the effort. [place] lifts or holds trunk or limbs and provides more than half the effort. 4-Socupgmxm-sbqggx does ALL the effort. Patient does none of the effort to complete the activity. Or, the assistance of 2 or more helpers is required for the patient to complete the activity. If activity was not attempted, code reason: 7-Patient Refused. 9-Not Applicable-not attempted and the patient did not perform the activity before the current illness, exacerbation or injury. 10-Not Attempted due to Environmental Limitations-(lack of equipment, weather restraints, etc.). 88-Not Attempted due to Medical Conditions or Safety Concerns. ADL PLOF Comments Pt. was needing some assistance from significant other prior to surgery, but only minimally. She could complete most ADLs independently. After back surgery, when going home, she required a lot of assistance from S.O. Self Care: Needed Some Help Functional Cognition: Unknown DME/Equipment Comments Walker OT Current Status Subjective Pt. does not state pain level but states that she feels "shaky." Mental Status/Objective Patient Orientation: Unable to Assess Attachments: Hunter Catheter, IV, Oxygen ADL-Treatment Shower/Bathe Self (QC): 2 Upper Body Dressing (QC): 2 (Max assist to don hospital gown set up as shirt. Max assist for brace.) Lower Body Dressing (QC): 2 Toileting Hygiene (QC): 1 Other Treatments OT order received, chart reviewed. Pt. standing with nurse aide when OT came in room. Pt. had been incontinent of BM all over shirt, down legs, and on gown. Pt. able to stand at chair side with min assist while being fully cleansed by therapy/nursing. Pt. able to stand/sit several times with CGA/min assist, and follow cues. Therapy/nursing cleansed all parts and donned fresh gown. Assisted pt. with back brace and making pt. comfortable in chair. All needs met. Education OT Patient Education: Correct positioning, Modified ADL techniques, Progress toward Goal/Update tx plan, Purpose of tx/functional activities, Reviewed precautions, Rehab process, Transfer techniques Teaching Recipient: Patient Teaching Methods: Demonstration, Discussion Response to Teaching: Verbalize Understanding, Return Demonstration OT Short Term Goals Short Term Goals Time Frame: Apr 20, 2021 Eatin Oral hygiene: 4 Toileting hygiene: 3 Shower/bathe self: 3 Upper body dressin Lower body dressin Putting on/taking off footwear: 3 OT Nursing Home Goals Radioactivity Technician Goals Time Frame: Apr 27, 2021 Eating (QC): 6 Oral Hygiene (QC): 5 Toileting Hygiene (QC): 4 Shower/Bathe Self (QC): 4 Upper Body Dressing (QC): 5 Lower Body Dressing (QC): 4 On/Off Footwear (QC): 4 Additional Goals: 1-Demonstrate ADL Tasks, 2-Verbalize Understanding, 3- ImproveStrength/Tosin 1=Demonstrate adherence to instructed precautions during ADL tasks. 2=Patient will verbalize/demonstrate understanding of assistive devices/modifications for ADL. 3=Patient will improve strength/tolerance for activity to enable patient to perform ADL's. OT Education/Plan Problem List/Assessment Assessment: Decreased Activ Tolerance, Dependent Transfers, Impaired Funct Balance, Impaired I ADL's, Impaired Self-Care Skills Discharge Recommendations Plan/Recommendations: Continue POC Therapy Discharge Recommendati: Post Acute OT Equpiment Recommendations-D/C: Hip Kit Treatment Plan/Plan of Care Treatment,Training & Education: Yes Patient would benefit from OT for education, treatment and training to promote independence in ADL's, mobility, safety and/or upper extremity function for ADL's. Plan of Care: ADL Retraining, Functional Mobility, UE Funct Exercise/Act Treatment Duration: Apr 27, 2021 Frequency: 5 times per week Estimated Hrs Per Day: .25 hour per day Agreement: Yes Rehab Potential: Fair Time/GCodes Start Time: 11:00 Stop Time: 11:15 Total Time Billed (hr/min): 15 Billed Treatment Time 1, KAMILLA HALE OT Apr 17, 2021 15:34
--- NOTE | 2021-04-17 17:53 | Cardiology Progress Note ---
Progress Note-Cardiology Events since last exam Date Seen by Provider: Apr 17, 2021 Time Seen by Provider: 17:51 Events since last exam We are seeing her due to heart failure. She has been transferred from the i ntensive care unit to the medical floor. She is awake and alert. Her is at her bedside. She does not recall all the details of her hospitalization. She does state that her breathing is improved. She denies chest pain, palpitations, syncope, or ankle edema. Certain portions of this document may have been dictated utilizing voice recognition technology. Inherent to this technology, typographical and grammatical errors may exist. As much as I am diligent to identify and correct these mistakes, some errors may remain in the document. Vitals Last set of Vitals Signs Vital Signs 04/17/21 04/17/21 15:06 15:55 Temp 36.5 Pulse 80 Resp 18 B/P (MAP) 116/65 (82) Pulse Ox 92 O2 Delivery High Flow N/C O2 Flow Rate 4.00 Labs Labs Laboratory Tests 04/17/21 05:50 04/17/21 07:28 Exam Vital Signs Vital Signs Date Time Temp Pulse Resp B/P (MAP) Pulse Ox O2 Delivery O2 Flow Rate FiO2 04/17/21 15:55 92 High Flow N/C 4.00 04/17/21 15:06 36.5 80 18 116/65 (82) Physical Exam General: Alert. No acute distress. Eye: No xanthelasma. HENT: Normocephalic. Neck: Jugular venous pressure does not appear elevated. Respiratory: Lungs have some scattered upper airway sounds. Respirations are non-labored. Breath sounds are equal. Symmetrical chest wall expansion. Cardiovascular: Normal rate. Regular rhythm. No murmur. No gallop. No edema. Gastrointestinal: Soft. Normal bowel sounds. Skin: Warm. Dry. Neurologic: Alert and oriented to person, place, time. Cranial nerves 3-11 grossly intact. Psychiatric: Cooperative. Appropriate mood & affect. Labs Laboratory Tests Test 04/17/21 05:50 04/17/21 07:28 04/17/21 08:45 Range/Units White Blood Count 6.2 4.3-11.0 10^3/uL Red Blood Count 3.57 L 3.80-5.11 10^6/uL Hemoglobin 10.6 L 11.5-16.0 g/dL Hematocrit 33 L 35-52 % Mean Corpuscular Volume 91 80-99 fL Mean Corpuscular Hemoglobin 30 25-34 pg Mean Corpuscular Hemoglobin Concent 33 32-36 g/dL Red Cell Distribution Width 16.6 H 10.0-14.5 % Platelet Count 271 130-400 10^3/uL Mean Platelet Volume 10.2 9.0-12.2 fL Immature Granulocyte % (Auto) 1 % Neutrophils (%) (Auto) 83 H 42-75 % Lymphocytes (%) (Auto) 12 12-44 % Monocytes (%) (Auto) 4 0-12 % Eosinophils (%) (Auto) 1 0-10 % Basophils (%) (Auto) 0 0-10 % Neutrophils # (Auto) 5.1 1.8-7.8 10^3/uL Lymphocytes # (Auto) 0.7 L 1.0-4.0 10^3/uL Monocytes # (Auto) 0.2 0.0-1.0 10^3/uL Eosinophils # (Auto) 0.0 0.0-0.3 10^3/uL Basophils # (Auto) 0.0 0.0-0.1 10^3/uL Immature Granulocyte # (Auto) 0.0 0.0-0.1 10^3/uL Sodium Level 136 135-145 MMOL/L Potassium Level 3.6 3.6-5.0 MMOL/L Chloride Level 97 L 98-107 MMOL/L Carbon Dioxide Level 28 21-32 MMOL/L Anion Gap 11 5-14 MMOL/L Blood Urea Nitrogen 11 7-18 MG/DL Creatinine 0.47 L 0.60-1.30 MG/DL Estimat Glomerular Filtration Rate 128 BUN/Creatinine Ratio 23 Glucose Level 105 70-105 MG/DL Calcium Level 8.8 8.5-10.1 MG/DL Magnesium Level 1.7 1.6-2.4 MG/DL Procalcitonin 0.56 H <0.10 NG/ML Stool Occult Blood Immunoassay NEGATIVE NEGATIVE Diagnosis/Problems Diagnosis/Problems (1) Acute diastolic congestive heart failure Assessment & Plan: She has been transferred to the general medical floor. She is gradually improving. She is currently ordered for IV Lasix. Her echocardiogram from 04/15 showed a normal ejection fraction with no significant v alvular disease. I will obtain a follow-up chest x-ray tomorrow. I suspect her diuretic can be changed over to oral tomorrow. (2) Pulmonary hypertension Assessment & Plan: I suspect this may be multifactorial due to chronic underlying lung disease as well as acute heart failure. This will need to be followed longitudinally. (3) Acute on chronic respiratory failure with hypoxemia Assessment & Plan: Most likely related to possible exacerbation of chronic obstructive pulmonary disease with superimposed heart failure. As above, she Is now on the medical floor and continues to improve. (4) Essential hypertension Assessment & Plan: Blood pressures are well controlled on her outpatient dose of atenolol. This should be continued. (5) Mixed hyperlipidemia Assessment & Plan: Continue statin medication. BAR HUTSON JR, MD Apr 17, 2021 17:53
--- NOTE | 2021-04-17 20:07 | Progress Note - Hospitalist ---
Subjective HPI/CC On Admission Date Seen by Provider: Apr 17, 2021 Time Seen by Provider: 08:50 Chief complaint: Pneumonia with UTI History present illness: This is a very debilitated 75-year-old white female who presented to the ER with severe weakness and confusion and lethargy. Apparently she just had lumbar spine surgery by Dr. Reece in [place] on 03/30/2021 and was sent home and has not done well since then. She appears to be very pale and very debilitated. Her fianc is at the bedside and is heavily involved in her care and has many questions over short amount of time. Patient does not wear oxygen at home. Antibiotics were started to cover pneumonia and UTI sources. Patient has severe anemia 7.3 and appears to be very pale so we will give 1 unit of blood and she is willing to do that. Patient appears to be very declined and has cognitive deficits. Subjective/Events-last exam She is feeling much better today. She wants to eat. She does not feel short of breath. She hasn't been having fevers. Focused Exam Lactate Level Time of Focused Exam: 18:15 Objective Exam Vital Signs Vital Signs Date Time Temp Pulse Resp B/P (MAP) Pulse Ox O2 Delivery O2 Flow Rate FiO2 04/18/21 08:00 37.2 86 20 120/69 (86) 91 High Flow N/C 5.00 Capillary Refill : Less Than 3 Seconds General Appearance: No Apparent Distress, Chronically ill Respiratory: No Respiratory Distress, Crackles Cardiovascular: Regular Rate, Rhythm, No Edema, No Murmur Gastrointestinal: Normal Bowel Sounds, Non Tender, Soft Extremity: Normal Inspection, Non Tender, No Pedal Edema Neurologic/Psychiatric: Alert, Normal Mood/Affect, Motor Weakness Skin: Normal Color, Warm/Dry Results/Procedures Lab Laboratory Tests 04/18/21 05:59 Patient resulted labs reviewed. Imaging: Reviewed Imaging Report Assessment/Plan Assessment and Plan Assess & Plan/Chief Complaint Acute respiratory failure with hypoxia Right sided pneumonia with parapneumonic effusion Fluid overload Pulmonary hypertension COPD Weaning oxygen as able Vanc and Meropenem Lasix Cardiology following MAT protocol Anemia s/p 3 units PRBC EGD without evidence of active bleed Hemoglobin stable Debility PT/OT DVT prophylaxis: Lovenox Diagnosis/Problems Diagnosis/Problems (1) Acute on chronic respiratory failure with hypoxemia Status: Acute (2) Pneumonia Status: Acute Qualifiers: Pneumonia type: due to unspecified organism Laterality: right Lung location: lower lobe of lung Qualified Codes: J18.9 - Pneumonia, unspecified organism (3) Acute diastolic congestive heart failure Status: Acute (4) Pulmonary hypertension Status: Acute (5) Essential hypertension Status: Chronic SHANI CLARKE MD Apr 17, 2021 20:07
[2021-04-18] MEDS: ACETAMINOPHEN 500 MG TAB (TYLENOL) PO PRN (02:44)
[2021-04-18] MEDS: RT-ALBUTEROL/IPRATROPIUM 3 ML (DUONEB) VIAL INH PRN (02:56)
[2021-04-18 03:46] VITALS: BP 151/82
[2021-04-18] MEDS: PANTOPRAZOLE 20 MG TABLET (PROTONIX) PO SCH ×2 (05:39→16:00)
[2021-04-18] MEDS: MEROPENEM 1,000 MG in WATER (STERILE) FOR INJECTION 20 ML IV SCH ×3 (05:39→21:01)
[2021-04-18] MEDS: MULTIVIT W/MINERALS TAB (THERAGRAN M) PO SCH (05:39)
[2021-04-18] MEDS ORDERED: MAGNESIUM 1 GM/100 ML IVPB 100 ML IV SCH (06:00)
[2021-04-18] MEDS ORDERED: POTASSIUM CL 10MEQ/50ML IVPB 50 ML IV SCH (06:00)
[2021-04-18] MEDS ORDERED: KCL 20 MEQ TAB (K-DUR) PO SCH (06:00)
[2021-04-18 06:31] LABS: POTASSIUM 3.4 MMOL/L (3.6-5.0)
[2021-04-18 06:33] LABS: CALCIUM 8.6 MG/DL (8.5-10.1)
[2021-04-18 06:36] LABS: BASOPHILS % (AUTO) 0 % (0-10); EOSINOPHILS % (AUTO) 1 % (0-10); HEMATOCRIT 32 % (35-52); HEMOGLOBIN 10.6 g/dL (11.5-16.0); LYMPHOCYTES # (AUTO) 0.6 10^3/uL (1.0-4.0); LYMPHOCYTES % (AUTO) 10 % (12-44); MEAN CORPUSCULAR HEMOGLOBIN 30 pg (25-34); MEAN CORPUSCULAR HGB CONC 33 g/dL (32-36); MEAN CORPUSCULAR VOLUME 92 fL (80-99); MEAN PLATELET VOLUME 10.4 fL (9.0-12.2); MONOCYTES # (AUTO) 0.2 10^3/uL (0.0-1.0); MONOCYTES % (AUTO) 3 % (0-12); NEUTROPHILS # (AUTO) 5.5 10^3/uL (1.8-7.8); NEUTROPHILS % (AUTO) 85 % (42-75); PLATELET COUNT 260 10^3/uL (130-400); WHITE BLOOD COUNT 6.4 10^3/uL (4.3-11.0)
[2021-04-18 06:37] LABS: CREATININE SERUM 0.48 MG/DL (0.60-1.30)
[2021-04-18 06:39] LABS: MAGNESIUM 1.7 MG/DL (1.6-2.4)
[2021-04-18] MEDS: RT-ALBUTEROL/IPRATROPIUM 3 ML (DUONEB) VIAL INH SCH ×4 (06:49→19:30)
[2021-04-18] MEDS: polyethylene glycoL POWDER 17 GM (MIRALAX) PACK PO SCH ×2 (07:40→21:00)
[2021-04-18] MEDS: SENNA W/DOCUSATE (SENOKOT S) TABLET PO SCH ×2 (07:40→21:00)
[2021-04-18] MEDS: DOCUSATE SODIUM 100 MG (COLACE) CAP PO SCH ×2 (07:41→21:00)
[2021-04-18] MEDS: LACTULOSE SYRUP 10GM/15ML (ENULOSE) 30ML UDC PO SCH ×2 (07:41→21:00)
[2021-04-18 08:00] VITALS: BP 120/69
[2021-04-18] MEDS: POTASSIUM CL 10MEQ/50ML IVPB 50 ML IV SCH (08:02)
[2021-04-18] MEDS ORDERED: KCL 20 MEQ TAB (K-DUR) PO ONE (08:15)
--- NOTE | 2021-04-18 08:46 | Diagnostic Imaging Report ---
INDICATION: CHF, followup. TIME OF EXAM: 8:31 AM Correlation is made with prior chest 04/14/2021. Heart size stable. There is extensive infiltrate throughout the right lung, increasing since prior exam. There is also moderate right effusion. Left lung appears to be fairly clear. There is no pneumothorax. IMPRESSION: Increasing right-sided infiltrate and effusion when compared to examination 4 days earlier. Dictated by: Dictated on workstation # [id number]
[2021-04-18] MEDS ORDERED: NS IV 500 ML 500 ML ONE (08:48)
[2021-04-18] MEDS: FUROSEMIDE 40 MG/4 ML INJ (LASIX) IVP SCH (08:55)
[2021-04-18] MEDS: PANTOPRAZOLE 40 MG (PROTONIX) VIAL IV SCH (08:55)
[2021-04-18] MEDS ORDERED: NS 100 ML (IVPB) BAG IV ONE ×2 (09:00→09:45)
[2021-04-18] MEDS: MAGNESIUM 1 GM/100 ML IVPB 100 ML IV SCH ×3 (09:01→09:07)
--- NOTE | 2021-04-18 09:03 | Progress Note - Hospitalist ---
Subjective HPI/CC On Admission Date Seen by Provider: Apr 18, 2021 Time Seen by Provider: 07:50 Chief complaint: Pneumonia with UTI History present illness: This is a very debilitated 75-year-old white female who presented to the ER with severe weakness and confusion and lethargy. Apparently she just had lumbar spine surgery by Dr. Reece in [place] on 03/30/2021 and was sent home and has not done well since then. She appears to be very pale and very debilitated. Her fianc is at the bedside and is heavily involved in her care and has many questions over short amount of time. Patient does not wear oxygen at home. Antibiotics were started to cover pneumonia and UTI sources. Patient has severe anemia 7.3 and appears to be very pale so we will give 1 unit of blood and she is willing to do that. Patient appears to be very declined and has cognitive deficits. Subjective/Events-last exam She is feeling better each day. She does not feel short of breath. She is not in any pain. She does feel like her tongue is "heavy". Focused Exam Time of Focused Exam: 18:15 Objective Exam Vital Signs Vital Signs Date Time Temp Pulse Resp B/P (MAP) Pulse Ox O2 Delivery O2 Flow Rate FiO2 04/18/21 08:00 37.2 86 20 120/69 (86) 91 High Flow N/C 5.00 Capillary Refill : Less Than 3 Seconds General Appearance: No Apparent Distress, Chronically ill HEENT: Other (Dry mucous membranes, no swelling of the tongue or pharynx) Neck: Normal Inspection, Supple Respiratory: No Respiratory Distress, Crackles, Decreased Breath Sounds Cardiovascular: Regular Rate, Rhythm, No Edema, No Murmur Gastrointestinal: Normal Bowel Sounds, Non Tender, Soft Extremity: Normal Inspection, Non Tender, No Pedal Edema Neurologic/Psychiatric: Alert, Oriented x3, No Motor/Sensory Deficits, Normal Mood/Affect Skin: Normal Color, Warm/Dry Results/Procedures Lab Laboratory Tests 04/18/21 05:59 Patient resulted labs reviewed. Imaging: Reviewed Imaging Report Assessment/Plan Assessment and Plan Assess & Plan/Chief Complaint Acute respiratory failure with hypoxia Right sided pneumonia with parapneumonic effusion Fluid overload Pulmonary hypertension COPD Weaning oxygen as able Vanc and Meropenem Lasix Cardiology following MAT protocol Anemia s/p 3 units PRBC EGD without evidence of active bleed Occult blood negative Hemoglobin stable Debility PT/OT DVT prophylaxis: Lovenox Diagnosis/Problems Diagnosis/Problems (1) Acute on chronic respiratory failure with hypoxemia Status: Acute (2) Pneumonia Status: Acute Qualifiers: Pneumonia type: due to unspecified organism Laterality: right Lung location: lower lobe of lung Qualified Codes: J18.9 - Pneumonia, unspecified organism (3) Acute diastolic congestive heart failure Status: Acute (4) Pulmonary hypertension Status: Acute (5) Essential hypertension Status: Chronic SHANI CLARKE MD Apr 18, 2021 09:02
[2021-04-18] MEDS: LORazepam 1 MG (ATIVAN) TAB PO SCH ×2 (09:05→18:50)
[2021-04-18] MEDS: CYCLOBENZAPRINE 10 MG (FLEXERIL) TAB PO SCH (09:05)
[2021-04-18] MEDS: FENOFIBRATE 134 MG (LOFIBRA) CAPSULE PO SCH (09:05)
[2021-04-18] MEDS: risperiDONE 0.5 MG (RisperDAL) TABLET PO SCH ×2 (09:05→21:00)
[2021-04-18] MEDS: meTOproloL SUCCINATE 50 MG (TOPROL XL) TAB PO SCH (09:05)
[2021-04-18] MEDS: VITAMIN D3 25 MCG (1,000 UNITS) TABLET PO SCH (09:05)
[2021-04-18] MEDS: FLUoxetine HCL 20 MG (PROzac) CAP PO SCH (09:05)
[2021-04-18] MEDS: KCL 20 MEQ TAB (K-DUR) PO SCH (09:07)
--- NOTE | 2021-04-18 09:33 | Physical Therapy Daily Note ---
PT Daily Note-Current Subjective Patient reluctantly agrees to PT. Boyfriend is present and very attentive. Transfers SCALE: Activities may be completed with or without assistive devices. 3-Cvrhymulxt-srtufih completes the activity by him/herself with no assistance from a helper. 5-Set-up or Clean-up Assistance-helper sets up or cleans up; patient completes activity. [place] assists only prior to or following the activity. 4-Supervision or Touching Assistance-helper provides verbal cues and/or touching/steadying and/or contact guard assistance as patient completes activity. Assistance may be provided throughout the activity or intermittently. 3-Partial/Moderate Assistance-helper does LESS THAN HALF the effort. [place] lifts, holds or supports trunk or limbs, but provides less than half the effort. 2-Substantial/Maximal Assistance-helper does MORE THAN HALF the effort. [place] lifts or holds trunk or limbs and provides more than half the effort. 1-Luibuxbfa-vmiryd does ALL the effort. Patient does none of the effort to complete the activity. Or, the assistance of 2 or more helpers is required for the patient to complete the activity. If activity was not attempted, code reason: 7-Patient Refused. 9-Not Applicable-not attempted and the patient did not perform the activity before the current illness, exacerbation or injury. 10-Not Attempted due to Environmental Limitations-(lack of equipment, weather restraints, etc.). 88-Not Attempted due to Medical Conditions or Safety Concerns. Sit to Lying (QC): 4 Lying to Sitting/Side of Bed(Q: 5 Sit to Stand (QC): 4 CGA for safety Gait Training Does the Patient Walk?: Yes Distance: 150' Walk 10 feet (QC): 4 Walk 50 ft with 2 Turns(QC): 4 Walk 150 ft (QC): 4 Gait Assistive Device: FWW extended UE's with FWW use (dependent to don LSO) Assessment Increased confusion this date. Improved mobility. PT Supervisor Word Processing Goals Intermediate Goals PT Supervisor Word Processing Goals Time Frame: Apr 25, 2021 Roll Left & Right (QC): 5 Sit to Lying (QC): 5 Lying-Sitting on Side/Bed(QC): 5 Sit to Stand (QC): 5 Chair/Yvk-jb-Lclkw Xfer(QC): 5 Toilet Transfer (QC): 5 Walk 10 feet (QC): 5 Walk 50ft with 2 Turns (QC): 5 Walk 150 ft (QC): 5 PT Plan Treatment/Plan Treatment Plan: Continue Plan of Care Treatment Plan: Bed Mobility, Education, Functional Activity Tosin, Functional Strength, Gait, Safety, Therapeutic Exercise, Transfers Treatment Duration: Apr 25, 2021 Frequency: 6 times per week Estimated Hrs Per Day: .25 hour per day Patient and/or Family Agrees t: Yes Time/GCodes Time In: 915 Time Out: 926 Total Billed Treatment Time: 11 Total Billed Treatment 1 visit FA 11 min ZOHRA HYATT PT Apr 18, 2021 09:33
[2021-04-18] MEDS: ATENOLOL 50 MG (TENORMIN) TAB PO SCH (09:35)
[2021-04-18] MEDS: ENOXAPARIN 40 MG/0.4 ML (LOVENOX) SYR SQ SCH (09:35)
--- NOTE | 2021-04-18 11:56 | Cardiology Progress Note ---
Progress Note-Cardiology Events since last exam Date Seen by Provider: Apr 18, 2021 Time Seen by Provider: 11:50 Events since last exam We are seeing her due to diastolic heart failure. When I saw the patient, she was extremely somnolent after having received some narcotic pain medication. I spoke to her at the bedside. He told me earlier this morning she went down for a chest x-ray in the department. When she returned to her room, she was working with physical therapy. After all that exertion, she was complaining of some back pain and received narcotic pain medication. She then fell asleep. She was opening her eyes when her spoke to her but would quickly fall back to sleep. I was not able to obtain any history from the patient this morning. Certain portions of this document may have been dictated utilizing voice recognition technology. Inherent to this technology, typographical and grammatical errors may exist. As much as I am diligent to identify and correct these mistakes, some errors may remain in the document. Vitals Last set of Vitals Signs Vital Signs 04/18/21 10:56 Pulse Ox 88 O2 Delivery High Flow N/C O2 Flow Rate 5.50 Labs Labs Laboratory Tests 04/18/21 05:59 Exam Vital Signs Vital Signs Date Time Temp Pulse Resp B/P (MAP) Pulse Ox O2 Delivery O2 Flow Rate FiO2 04/18/21 10:56 88 High Flow N/C 5.50 04/18/21 08:00 37.2 86 20 120/69 (86) Physical Exam General: Extremely somnolent, minimally arousable to voice. Eye: No xanthelasma. HENT: Normocephalic. Neck: Jugular venous pressure does not appear elevated. Respiratory: Lungs are clear to auscultation. Respirations are non-labored. Breath sounds are equal. Symmetrical chest wall expansion. Cardiovascular: Normal rate. Regular rhythm. No murmur. No gallop. No edema. Gastrointestinal: Soft. Normal bowel sounds. Skin: Warm. Dry. Neurologic: Minimally arousable to voice as outlined above. Cranial nerves 3-11 grossly intact. Psychiatric: Not obtainable due to somnolence. Labs Laboratory Tests Test 04/18/21 05:59 Range/Units White Blood Count 6.4 4.3-11.0 10^3/uL Red Blood Count 3.53 L 3.80-5.11 10^6/uL Hemoglobin 10.6 L 11.5-16.0 g/dL Hematocrit 32 L 35-52 % Mean Corpuscular Volume 92 80-99 fL Mean Corpuscular Hemoglobin 30 25-34 pg Mean Corpuscular Hemoglobin Concent 33 32-36 g/dL Red Cell Distribution Width 16.6 H 10.0-14.5 % Platelet Count 260 130-400 10^3/uL Mean Platelet Volume 10.4 9.0-12.2 fL Immature Granulocyte % (Auto) 1 % Neutrophils (%) (Auto) 85 H 42-75 % Lymphocytes (%) (Auto) 10 L 12-44 % Monocytes (%) (Auto) 3 0-12 % Eosinophils (%) (Auto) 1 0-10 % Basophils (%) (Auto) 0 0-10 % Neutrophils # (Auto) 5.5 1.8-7.8 10^3/uL Lymphocytes # (Auto) 0.6 L 1.0-4.0 10^3/uL Monocytes # (Auto) 0.2 0.0-1.0 10^3/uL Eosinophils # (Auto) 0.0 0.0-0.3 10^3/uL Basophils # (Auto) 0.0 0.0-0.1 10^3/uL Immature Granulocyte # (Auto) 0.0 0.0-0.1 10^3/uL Sodium Level 136 135-145 MMOL/L Potassium Level 3.4 L 3.6-5.0 MMOL/L Chloride Level 95 L 98-107 MMOL/L Carbon Dioxide Level 29 21-32 MMOL/L Anion Gap 12 5-14 MMOL/L Blood Urea Nitrogen 9 7-18 MG/DL Creatinine 0.48 L 0.60-1.30 MG/DL Estimat Glomerular Filtration Rate 125 BUN/Creatinine Ratio 19 Glucose Level 87 70-105 MG/DL Calcium Level 8.6 8.5-10.1 MG/DL Magnesium Level 1.7 1.6-2.4 MG/DL Radiology PA and lateral chest x-ray: Worsening right lower lobe infiltrate. No signs of pulmonary edema or vascular congestion. Diagnosis/Problems Diagnosis/Problems (1) Acute diastolic congestive heart failure Status: Acute Assessment & Plan: Her chest x-ray shows possibly worsening right lower lobe pneumonia but no evidence of pulmonary edema. She received several doses of intravenous furosemide over the past few days. I will stop the furosemide at this point in time. (2) Pulmonary hypertension Status: Acute Assessment & Plan: Most likely related to the chronic underlying pulmonary disease accompanied by the heart failure. We may want to consider a follow-up echocardiogram in the next few months after discharge. (3) Acute on chronic respiratory failure with hypoxemia Status: Acute Assessment & Plan: Most likely related to possible exacerbation of chronic obstructive pulmonary disease with superimposed pneumonia. As above, it appears as though her heart failure has improved. (4) Essential hypertension Status: Chronic Assessment & Plan: Blood pressures remain well controlled on her outpatient dose of atenolol. (5) Mixed hyperlipidemia Assessment & Plan: Continue statin. BAR HUTSON JR, MD Apr 18, 2021 11:56
[2021-04-18 12:00] VITALS: BP 105/66
[2021-04-18] MEDS ORDERED: TROUGH ORDER-PHARMACY XX NR (12:00)
[2021-04-18] MEDS: VANCOMYCIN INJECTION 1,250 MG in NS (IVPB) 250 ML IV SCH (13:17)
[2021-04-18 16:00] VITALS: BP 147/90
[2021-04-18 20:00] VITALS: BP 128/66
[2021-04-19 00:07] VITALS: BP 127/61
[2021-04-19] MEDS: VANCOMYCIN INJECTION 1,250 MG in NS (IVPB) 250 ML IV SCH ×2 (01:34→13:23)
[2021-04-19 03:55] VITALS: BP 116/66
[2021-04-19] MEDS: MEROPENEM 1,000 MG in WATER (STERILE) FOR INJECTION 20 ML IV SCH ×3 (05:12→21:01)
[2021-04-19 06:32] LABS: BASOPHILS % (AUTO) 0 % (0-10); EOSINOPHILS % (AUTO) 0 % (0-10); HEMATOCRIT 32 % (35-52); HEMOGLOBIN 10.2 g/dL (11.5-16.0); LYMPHOCYTES % (AUTO) 15 % (12-44); MEAN CORPUSCULAR HEMOGLOBIN 30 pg (25-34); MEAN CORPUSCULAR HGB CONC 32 g/dL (32-36); MEAN CORPUSCULAR VOLUME 94 fL (80-99); MONOCYTES # (AUTO) 0.3 X 10^3 (0.0-1.0); MONOCYTES % (AUTO) 5 % (0-12); NEUTROPHILS # (AUTO) 5.4 X 10^3 (1.8-7.8); NEUTROPHILS % (AUTO) 79 % (42-75); PLATELET COUNT 281 10^3/uL (130-400); WHITE BLOOD COUNT 6.8 10^3/uL (4.3-11.0)
[2021-04-19] MEDS: MULTIVIT W/MINERALS TAB (THERAGRAN M) PO SCH (06:41)
[2021-04-19] MEDS: PANTOPRAZOLE 20 MG TABLET (PROTONIX) PO SCH ×2 (06:41→15:31)
[2021-04-19 07:10] LABS: CALCIUM 8.3 MG/DL (8.5-10.1); CREATININE SERUM 0.46 MG/DL (0.60-1.30); MAGNESIUM 1.6 MG/DL (1.6-2.4); POTASSIUM 3.8 MMOL/L (3.6-5.0)
[2021-04-19] MEDS: RT-ALBUTEROL/IPRATROPIUM 3 ML (DUONEB) VIAL INH SCH ×4 (07:15→19:27)
[2021-04-19] MEDS: KCL 20 MEQ TAB (K-DUR) PO SCH (07:24)
[2021-04-19] MEDS: POTASSIUM CL 10MEQ/50ML IVPB 50 ML IV SCH (07:24)
[2021-04-19] MEDS: MAGNESIUM 1 GM/100 ML IVPB 100 ML IV SCH ×3 (07:24→09:43)
[2021-04-19 08:00] VITALS: BP 133/78
[2021-04-19] MEDS: PANTOPRAZOLE 40 MG (PROTONIX) VIAL IV SCH (09:48)
[2021-04-19] MEDS: LACTULOSE SYRUP 10GM/15ML (ENULOSE) 30ML UDC PO SCH ×2 (09:57→21:00)
[2021-04-19] MEDS: polyethylene glycoL POWDER 17 GM (MIRALAX) PACK PO SCH ×2 (10:00→21:00)
[2021-04-19] MEDS: FLUoxetine HCL 20 MG (PROzac) CAP PO SCH (10:00)
[2021-04-19] MEDS: ATENOLOL 50 MG (TENORMIN) TAB PO SCH (10:00)
[2021-04-19] MEDS: risperiDONE 0.5 MG (RisperDAL) TABLET PO SCH ×2 (10:00→21:01)
[2021-04-19] MEDS: meTOproloL SUCCINATE 50 MG (TOPROL XL) TAB PO SCH (10:00)
[2021-04-19] MEDS: VITAMIN D3 25 MCG (1,000 UNITS) TABLET PO SCH (10:00)
--- NOTE | 2021-04-19 10:00 | Cardiology Progress Note ---
Progress Note-Cardiology Events since last exam Date Seen by Provider: Apr 19, 2021 Time Seen by Provider: 09:55 Events since last exam We are seeing her due to heart failure. When I saw her this morning, she was sitting up in bed eating breakfast. Family was at the bedside. She states her breathing is improved. She denies chest pain, palpitations, syncope, or ankle edema. Certain portions of this document may have been dictated utilizing voice recognition technology. Inherent to this technology, typographical and grammatical errors may exist. As much as I am diligent to identify and correct these mistakes, some errors may remain in the document. Vitals Last set of Vitals Signs Vital Signs 04/19/21 08:00 Temp 36.9 Pulse 93 Resp 20 B/P (MAP) 133/78 (96) Pulse Ox 91 O2 Delivery High Flow N/C O2 Flow Rate 6.00 Labs Labs Laboratory Tests 04/19/21 06:25 Exam Vital Signs Vital Signs Date Time Temp Pulse Resp B/P (MAP) Pulse Ox O2 Delivery O2 Flow Rate FiO2 04/19/21 08:00 36.9 93 20 133/78 (96) 91 High Flow N/C 6.00 Physical Exam General: Alert. No acute distress. Eye: No xanthelasma. HENT: Normocephalic. Neck: Jugular venous pressure does not appear elevated. Respiratory: Lungs have coarse breath sounds at the right base. Respirations are non-labored. Breath sounds are equal. Symmetrical chest wall expansion. Cardiovascular: Normal rate. Regular rhythm. No murmur. No gallop. No edema. Gastrointestinal: Soft. Normal bowel sounds. Skin: Warm. Dry. Neurologic: Alert and oriented to person, place, time. Cranial nerves 3-11 grossly intact. Psychiatric: Cooperative. Appropriate mood & affect. Labs Laboratory Tests Test 04/18/21 12:07 04/19/21 06:25 Range/Units Vancomycin Level Trough 2.6 L 10.0-20.0 UG/ML White Blood Count 6.8 4.3-11.0 10^3/uL Red Blood Count 3.39 L 3.80-5.11 10^6/uL Hemoglobin 10.2 L 11.5-16.0 g/dL Hematocrit 32 L 35-52 % Mean Corpuscular Volume 94 80-99 fL Mean Corpuscular Hemoglobin 30 25-34 pg Mean Corpuscular Hemoglobin Concent 32 32-36 g/dL Red Cell Distribution Width 16.6 H 10.0-14.5 % Platelet Count 281 130-400 10^3/uL Mean Platelet Volume 10.0 9.0-12.2 fL Immature Granulocyte % (Auto) 0 % Neutrophils (%) (Auto) 79 H 42-75 % Lymphocytes (%) (Auto) 15 12-44 % Monocytes (%) (Auto) 5 0-12 % Eosinophils (%) (Auto) 0 0-10 % Basophils (%) (Auto) 0 0-10 % Neutrophils # (Auto) 5.4 1.8-7.8 X 10^3 Lymphocytes # (Auto) 1.0 1.0-4.0 X 10^3 Monocytes # (Auto) 0.3 0.0-1.0 X 10^3 Eosinophils # (Auto) 0.0 0.0-0.3 10^3/uL Basophils # (Auto) 0.0 0.0-0.1 10^3/uL Immature Granulocyte # (Auto) 0.0 0.0-0.1 10^3/uL Sodium Level 131 L 135-145 MMOL/L Potassium Level 3.8 3.6-5.0 MMOL/L Chloride Level 94 L 98-107 MMOL/L Carbon Dioxide Level 29 21-32 MMOL/L Anion Gap 8 5-14 MMOL/L Blood Urea Nitrogen 7 7-18 MG/DL Creatinine 0.46 L 0.60-1.30 MG/DL Estimat Glomerular Filtration Rate 132 BUN/Creatinine Ratio 15 Glucose Level 92 70-105 MG/DL Calcium Level 8.3 L 8.5-10.1 MG/DL Magnesium Level 1.6 1.6-2.4 MG/DL Diagnosis/Problems Diagnosis/Problems (1) Acute diastolic congestive heart failure Status: Acute Assessment & Plan: Her chest x-ray shows possibly worsening right lower lobe pneumonia but no evidence of pulmonary edema. She received several doses of intravenous furosemide over the past few days. I stopped the furosemide on 04/18. I have ordered a follow-up chest x-ray for this morning. (2) Pulmonary hypertension Status: Acute Assessment & Plan: Most likely related to the chronic underlying pulmonary disease accompanied by the heart failure. We may want to consider a follow-up echocardiogram in the next few months after discharge. (3) Acute on chronic respiratory failure with hypoxemia Status: Acute Assessment & Plan: Most likely related to possible exacerbation of chronic obstructive pulmonary disease with superimposed pneumonia. As above, it appears as though her heart failure has improved. As above, I will obtain a follow-up chest x-ray this morning. (4) Essential hypertension Status: Chronic Assessment & Plan: Blood pressures remain well controlled on her outpatient dose of atenolol. (5) Mixed hyperlipidemia Assessment & Plan: Continue fenofibrate and statin. BAR HUTSON JR, MD Apr 19, 2021 10:00
[2021-04-19] MEDS: FENOFIBRATE 134 MG (LOFIBRA) CAPSULE PO SCH (10:01)
[2021-04-19] MEDS: LORazepam 1 MG (ATIVAN) TAB PO SCH ×2 (10:01→18:20)
[2021-04-19] MEDS: ENOXAPARIN 40 MG/0.4 ML (LOVENOX) SYR SQ SCH (10:01)
[2021-04-19] MEDS: CYCLOBENZAPRINE 10 MG (FLEXERIL) TAB PO SCH (10:01)
[2021-04-19] MEDS: SENNA W/DOCUSATE (SENOKOT S) TABLET PO SCH ×2 (10:02→21:00)
[2021-04-19] MEDS: DOCUSATE SODIUM 100 MG (COLACE) CAP PO SCH ×2 (10:02→21:00)
[2021-04-19 12:08] VITALS: BP 116/68
[2021-04-19] MEDS: ACETAMINOPHEN 500 MG TAB (TYLENOL) PO PRN (13:23)
--- NOTE | 2021-04-19 13:54 | Diagnostic Imaging Report ---
EXAMINATION: Chest 2 view HISTORY: Back pain, shortness breath COMPARISON: 04/18/2021 FINDINGS: There is unchanged extensive opacification right hemithorax with a small right pleural effusion. Left lung is clear. No pneumothorax. Heart size is normal. IMPRESSION: 1. Unchanged extensive opacification right hemithorax with a small right pleural effusion concerning for pneumonia. Dictated by: Dictated on workstation # [id number]
--- NOTE | 2021-04-19 14:30 | Progress Note - Hospitalist ---
Subjective HPI/CC On Admission Date Seen by Provider: Apr 19, 2021 Time Seen by Provider: 10:30 Chief complaint: Pneumonia with UTI History present illness: This is a very debilitated 75-year-old white female who presented to the ER with severe weakness and confusion and lethargy. Apparently she just had lumbar spine surgery by Dr. Reece in [place] on 03/30/2021 and was sent home and has not done well since then. She appears to be very pale and very debilitated. Her fianc is at the bedside and is heavily involved in her care and has many questions over short amount of time. Patient does not wear oxygen at home. Antibiotics were started to cover pneumonia and UTI sources. Patient has severe anemia 7.3 and appears to be very pale so we will give 1 unit of blood and she is willing to do that. Patient appears to be very declined and has cognitive deficits. Subjective/Events-last exam She still feels short of breath. She is not having any pain. Her appetite has improved. Focused Exam Time of Focused Exam: 18:15 Objective Exam Vital Signs Vital Signs Date Time Temp Pulse Resp B/P (MAP) Pulse Ox O2 Delivery O2 Flow Rate FiO2 04/19/21 12:08 37.2 88 20 116/68 (84) 91 High Flow N/C 6.00 Capillary Refill : Less Than 3 Seconds General Appearance: No Apparent Distress, Chronically ill Respiratory: Lungs Clear, Normal Breath Sounds, No Respiratory Distress Cardiovascular: Regular Rate, Rhythm, No Edema, No Murmur Gastrointestinal: Normal Bowel Sounds, Non Tender, Soft Extremity: Normal Inspection, Non Tender, No Pedal Edema Neurologic/Psychiatric: Alert, Oriented x3, No Motor/Sensory Deficits, Normal Mood/Affect Skin: Normal Color, Warm/Dry Results/Procedures Lab Laboratory Tests 04/19/21 06:25 Patient resulted labs reviewed. Imaging: Reviewed Imaging Report Assessment/Plan Assessment and Plan Assess & Plan/Chief Complaint Acute respiratory failure with hypoxia Right sided pneumonia with parapneumonic effusion Fluid overload Pulmonary hypertension COPD Weaning oxygen as able Vanc and Meropenem Cardiology following MAT protocol Iron deficiency anemia s/p 3 units PRBC EGD without evidence of active bleed Occult blood negative Hemoglobin stable Begin oral iron replacement Consider IV iron after acute infection resolved Debility PT/OT DVT prophylaxis: Lovenox Diagnosis/Problems Diagnosis/Problems (1) Acute on chronic respiratory failure with hypoxemia Status: Acute (2) Pneumonia Status: Acute Qualifiers: Pneumonia type: due to unspecified organism Laterality: right Lung location: lower lobe of lung Qualified Codes: J18.9 - Pneumonia, unspecified organism (3) Acute diastolic congestive heart failure Status: Acute (4) Pulmonary hypertension Status: Acute (5) Essential hypertension Status: Chronic SHANI CLARKE MD Apr 19, 2021 14:30
[2021-04-19 15:46] VITALS: BP 113/57
[2021-04-19] MEDS: FERROUS SULF 325 MG (IRON) TAB PO SCH (18:20)
[2021-04-19 19:40] VITALS: BP 127/73
[2021-04-20] VITALS (8 sets, daily range): BP systolic 111–144; BP diastolic 60–76
[2021-04-20] MEDS: MEROPENEM 1,000 MG in WATER (STERILE) FOR INJECTION 20 ML IV SCH (05:11)
[2021-04-20] MEDS: MULTIVIT W/MINERALS TAB (THERAGRAN M) PO SCH (06:06)
[2021-04-20] MEDS: PANTOPRAZOLE 20 MG TABLET (PROTONIX) PO SCH ×2 (06:06→17:36)
[2021-04-20 07:19] LABS: CALCIUM 8.6 MG/DL (8.5-10.1)
[2021-04-20] MEDS: KCL 20 MEQ TAB (K-DUR) PO SCH (07:22)
[2021-04-20] MEDS: POTASSIUM CL 10MEQ/50ML IVPB 50 ML IV SCH (07:22)
[2021-04-20 07:23] LABS: CREATININE SERUM 0.49 MG/DL (0.60-1.30)
[2021-04-20] MEDS: RT-ALBUTEROL/IPRATROPIUM 3 ML (DUONEB) VIAL INH SCH ×2 (07:25→20:28)
[2021-04-20 07:26] LABS: MAGNESIUM 1.7 MG/DL (1.6-2.4)
[2021-04-20] MEDS: MAGNESIUM 1 GM/100 ML IVPB 100 ML IV SCH (07:59)
--- NOTE | 2021-04-20 08:48 | Physical Therapy Daily Note ---
PT Daily Note-Current Subjective Patient agrees to PT. Patient is very lethargic and slurring speech. Boyfriend present. Mental Status Patient Orientation: Confused Transfers SCALE: Activities may be completed with or without assistive devices. 3-Dexghfnyya-epecxuh completes the activity by him/herself with no assistance from a helper. 5-Set-up or Clean-up Assistance-helper sets up or cleans up; patient completes activity. [place] assists only prior to or following the activity. 4-Supervision or Touching Assistance-helper provides verbal cues and/or touching/steadying and/or contact guard assistance as patient completes activity. Assistance may be provided throughout the activity or intermittently. 3-Partial/Moderate Assistance-helper does LESS THAN HALF the effort. [place] lifts, holds or supports trunk or limbs, but provides less than half the effort. 2-Substantial/Maximal Assistance-helper does MORE THAN HALF the effort. [place] lifts or holds trunk or limbs and provides more than half the effort. 1-Nhdptffry-wggyyn does ALL the effort. Patient does none of the effort to complete the activity. Or, the assistance of 2 or more helpers is required for the patient to complete the activity. If activity was not attempted, code reason: 7-Patient Refused. 9-Not Applicable-not attempted and the patient did not perform the activity before the current illness, exacerbation or injury. 10-Not Attempted due to Environmental Limitations-(lack of equipment, weather restraints, etc.). 88-Not Attempted due to Medical Conditions or Safety Concerns. Lying to Sitting/Side of Bed(Q: 3 Sit to Stand (QC): 4 Chair/Lmf-uj-Wmfsl Xfer(QC): 4 Gait Training Does the Patient Walk?: Yes Distance: 30' Walk 10 feet (QC): 4 Gait Assistive Device: FWW Due to current state, patient is not safe to ambulate distance. RN notified. Assessment Patient up in recliner with needs met. Increase activity as tolerated. PT Global Logistics Manager Goals Custodial Goals PT Custodial Goals Time Frame: Apr 25, 2021 Roll Left & Right (QC): 5 Sit to Lying (QC): 5 Lying-Sitting on Side/Bed(QC): 5 Sit to Stand (QC): 5 Chair/Ika-uy-Geeqm Xfer(QC): 5 Toilet Transfer (QC): 5 Walk 10 feet (QC): 5 Walk 50ft with 2 Turns (QC): 5 Walk 150 ft (QC): 5 PT Plan Treatment/Plan Treatment Plan: Continue Plan of Care Treatment Plan: Bed Mobility, Education, Functional Activity Tosin, Functional Strength, Gait, Safety, Therapeutic Exercise, Transfers Treatment Duration: Apr 25, 2021 Frequency: 6 times per week Estimated Hrs Per Day: .25 hour per day Patient and/or Family Agrees t: Yes Time/GCodes Time In: 815 Time Out: 827 Total Billed Treatment Time: 12 Total Billed Treatment 1 visit FA 12 min ZOHRA HYATT PT Apr 20, 2021 08:48
[2021-04-20] MEDS: LORazepam 1 MG (ATIVAN) TAB PO SCH ×2 (09:17→16:50)
[2021-04-20] MEDS: CYCLOBENZAPRINE 10 MG (FLEXERIL) TAB PO SCH (09:18)
[2021-04-20] MEDS: SENNA W/DOCUSATE (SENOKOT S) TABLET PO SCH ×2 (09:19→19:39)
[2021-04-20] MEDS: meTOproloL SUCCINATE 50 MG (TOPROL XL) TAB PO SCH (09:20)
[2021-04-20] MEDS: ENOXAPARIN 40 MG/0.4 ML (LOVENOX) SYR SQ SCH (09:20)
[2021-04-20] MEDS: PANTOPRAZOLE 40 MG (PROTONIX) VIAL IV SCH (09:20)
[2021-04-20] MEDS: LACTULOSE SYRUP 10GM/15ML (ENULOSE) 30ML UDC PO SCH ×2 (09:20→19:38)
[2021-04-20] MEDS: FLUoxetine HCL 20 MG (PROzac) CAP PO SCH (09:21)
[2021-04-20] MEDS: polyethylene glycoL POWDER 17 GM (MIRALAX) PACK PO SCH ×2 (09:21→19:39)
[2021-04-20] MEDS: VITAMIN D3 25 MCG (1,000 UNITS) TABLET PO SCH (09:21)
[2021-04-20] MEDS: FENOFIBRATE 134 MG (LOFIBRA) CAPSULE PO SCH (09:21)
[2021-04-20] MEDS: FERROUS SULF 325 MG (IRON) TAB PO SCH ×2 (09:21→17:36)
[2021-04-20] MEDS: ATENOLOL 50 MG (TENORMIN) TAB PO SCH (09:21)
[2021-04-20] MEDS: DOCUSATE SODIUM 100 MG (COLACE) CAP PO SCH ×2 (09:21→19:38)
[2021-04-20] MEDS: risperiDONE 0.5 MG (RisperDAL) TABLET PO SCH ×2 (09:26→20:47)
--- NOTE | 2021-04-20 12:57 | Occupational Ther Daily Note ---
OT Current Status-Daily Note Subjective Pt alert, sitting up in recliner. Visitor present in room. Pt agrees to therapy. Mental Status/Objective Patient Orientation: Person, Confused Attachments: Hunter Catheter, IV, Oxygen ADL-Treatment Pt somewhat confused about length of times and where/what she has done. Assist given to comb hair. Pt able to set self upright after verbal cues to do so. After therapy, pt sitting in recliner with call light/phone in reach. All needs met in room. Therapy Code Descriptions/Definitions Functional [place] Measure: 0=Not Assessed/NA 4=Minimal Assistance 1=Total Assistance 5=Supervision or Setup 2=Maximal Assistance 6=Modified [place] 3=Moderate Assistance 7=Complete IndependenceSCALE: Activities may be completed with or without assistive devices. 9-Mnxkrverfz-ilzteqz completes the activity by him/herself with no assistance from a helper. 5-Set-up or Clean-up Assistance-helper sets up or cleans up; patient completes activity. [place] assists only prior to or following the activity. 4-Supervision or Touching Assistance-helper provides verbal cues and/or touching/steadying and/or contact guard assistance as patient completes activi ty. Assistance may be provided throughout the activity or intermittently. 3-Partial/Moderate Assistance-helper does LESS THAN HALF the effort. [place] lifts, holds or supports trunk or limbs, but provides less than half the effort. 2-Substantial/Maximal Assistance-helper does MORE THAN HALF the effort. [place] lifts or holds trunk or limbs and provides more than half the effort. 9-Pcoljtnor-bjyqda does ALL the effort. Patient does none of the effort to complete the activity. Or, the assistance of 2 or more helpers is required for the patient to complete the activity. If activity was not attempted, code reason: 7-Patient Refused. 9-Not Applicable-not attempted and the patient did not perform the activity before the current illness, exacerbation or injury. 10-Not Attempted due to Environmental Limitations-(lack of equipment, weather restraints, etc.). 88-Not Attempted due to Medical Conditions or Safety Concerns. Eating (QC): 4 (Set up for eating and pt able to hold onto utenils to eat. Pt requires supervision to continue to eat meals.) OT Short Term Goals Short Term Goals Time Frame: Apr 20, 2021 Eatin Oral hygiene: 4 Toileting hygiene: 3 Shower/bathe self: 3 Upper body dressin Lower body dressin Putting on/taking off footwear: 3 OT Package Drier Goals Package Drier Goals Time Frame: Apr 27, 2021 Eating (QC): 6 Oral Hygiene (QC): 5 Toileting Hygiene (QC): 4 Shower/Bathe Self (QC): 4 Upper Body Dressing (QC): 5 Lower Body Dressing (QC): 4 On/Off Footwear (QC): 4 Additional Goals: 1-Demonstrate ADL Tasks, 2-Verbalize Understanding, 3- ImproveStrength/Tosin 1=Demonstrate adherence to instructed precautions during ADL tasks. 2=Patient will verbalize/demonstrate understanding of assistive devices /modifications for ADL. 3=Patient will improve strength/tolerance for activity to enable patient to perform ADL's. OT Education/Plan Problem List/Assessment Assessment: Decreased Safety Aware, Impaired Cognition, Impaired Coordination, Impaired Self-Care Skills Discharge Recommendations Plan/Recommendations: Continue POC Treatment Plan/Plan of Care Patient would benefit from OT for education, treatment and training to promote independence in ADL's, mobility, safety and/or upper extremity function for ADL's. Plan of Care: ADL Retraining, Functional Mobility, UE Funct Exercise/Act Treatment Duration: Apr 27, 2021 Frequency: 5 times per week Estimated Hrs Per Day: .25 hour per day Agreement: Yes Rehab Potential: Fair Time/GCodes Start Time: 12:31 Stop Time: 12:54 Total Time Billed (hr/min): 23 Billed Treatment Time 1 visit-ADL 2 (23 min) BRIANNA BARTLETT Apr 20, 2021 12:57
--- NOTE | 2021-04-20 14:03 | Progress Note ---
Subjective Subjective/Events-last exam Patient states that she is feeling better this AM. Sitting up in the chair. Tolerating soft diet and would like to be advanced. BM this AM. Review of Systems General: Fatigue, Malaise Pulmonary: Dyspnea, Cough Cardiovascular: No: Chest Pain, Palpitations Gastrointestinal: No: Nausea, Vomiting, Abdominal Pain, Diarrhea, Constipation Genitourinary: No Dysuria, No Hematuria Neurological: Weakness, Incoordination; No: Confusion Focused Exam Time of Focused Exam: 18:15 Objective Exam Last Set of Vital Signs Vital Signs Date Time Temp Pulse Resp B/P (MAP) Pulse Ox O2 Delivery O2 Flow Rate FiO2 04/20/21 11:28 37.0 93 34 129/60 (83) 94 High Flow N/C 6.00 Capillary Refill : Less Than 3 Seconds I&O Intake and Output 04/20/21 00:00 Intake Total 1217 ml Output Total 1600 ml Balance -383 ml Intake Oral 1217 ml Output Urine Total 1600 ml # Bowel Movements 1 General: Alert, Oriented X3, Mild Distress (with minimal exertion) Neck: Supple Lungs: Other (Diminished breath sounds with basilar wheezing, increased work of breathing with exercise) Heart: Regular Rate, No Murmurs Abdomen: Normal Bowel Sounds, Soft, No Tenderness, No Masses Extremities: Other (1+ pitting edema equal bilaterally) Skin: No Rashes Neuro: Normal Speech, Cranial Nerves 3-12 NL Psych/Mental Status: Mental Status NL, Mood NL Results/Procedures Lab Laboratory Tests 04/20/21 06:46: Sodium Level 138, Potassium Level 4.0, Chloride Level 97L, Carbon Dioxide Level 31, Anion Gap 10, Blood Urea Nitrogen 8, Creatinine 0.49L, Estimat Glomerular Filtration Rate 122, BUN/Creatinine Ratio 16, Glucose Level 100, Calcium Level 8.6, Magnesium Level 1.7 Microbiology 04/16/21 MRSA Screen - Final, Complete MRSA not isolated 04/15/21 Blood Culture - Preliminary, Resulted Staph, Coag Neg (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 Exam: Portable chest x-ray upright view. Comparisons: Chest x-ray dated 04/11/2021. Findings: There is interval progression of patchy lung infiltrates involving right upper lobe and right lower lung field region. There is minimal left basilar atelectasis. There is interval blunting of the right costophrenic angle region and a small pleural effusion cannot be excluded. There is no pneumothorax. Pulmonary vasculature and cardiac silhouette are within normal limits. There are degenerative spurs involving the thoracic spine. IMPRESSION: 1: There is interval progression of right lung pneumonia. Possible interval development of a small right pleural effusion. Dictated on workstation # [id number] Dict: 04/15/21 1136 Trans: 04/15/21 1137 [facility] [id number] Interpreted by: ISABELLE SANDRA MD Electronically signed by: Assessment/Plan Assessment/Plan (1) Acute on chronic respiratory failure with hypoxemia Status: Acute Assessment & Plan: 04/20: Patient with recent spinal surgery which likely played a role in PNA, Encouraged OOB with PT, Incentive Spirometer, will continue to t itrate oxygen as needed (2) Acute diastolic congestive heart failure Status: Acute Assessment & Plan: 04/20: Discussed low salt diet and daily weights (3) Pneumonia Status: Acute Qualifiers: Qualified Codes: J18.9 - Pneumonia, unspecified organism (4) Iron deficiency anemia Status: Acute Assessment & Plan: 04/20: Patient seen by Dr Williamson, anemia is stable (5) Pulmonary hypertension Status: Acute (6) Mixed hyperlipidemia Status: Chronic (7) Essential hypertension Status: Chronic (8) Debility Status: Acute Assessment & Plan: 04/20: Discussed with patient that SNF for IRF would be very beneficial, SW has been working on placement near [place] (9) H/O Spinal surgery CK PITTMAN MD Apr 20, 2021 14:03
--- NOTE | 2021-04-20 17:02 | Cardiology Progress Note ---
Progress Note-Cardiology Events since last exam Date Seen by Provider: Apr 20, 2021 Time Seen by Provider: 16:58 Events since last exam We are seeing her due to heart failure. She was sitting up in bed eating din ner. She is pleased that she can eat solid food. She states her breathing continues to improve. She denies chest pain, palpitations, syncope, or ankle edema. Certain portions of this document may have been dictated utilizing voice recognition technology. Inherent to this technology, typographical and grammatical errors may exist. As much as I am diligent to identify and correct these mistakes, some errors may remain in the document. Vitals Last set of Vitals Signs Vital Signs 04/20/21 15:32 Temp 36.8 Pulse 88 Resp 24 B/P (MAP) 136/76 (96) Pulse Ox 96 O2 Delivery High Flow N/C O2 Flow Rate 6.00 Labs Labs Laboratory Tests 04/20/21 06:46 Exam Vital Signs Vital Signs Date Time Temp Pulse Resp B/P (MAP) Pulse Ox O2 Delivery O2 Flow Rate FiO2 04/20/21 15:32 36.8 88 24 136/76 (96) 96 High Flow N/C 6.00 Physical Exam General: Alert. No acute distress. Eye: No xanthelasma. HENT: Normocephalic. Neck: Jugular venous pressure does not appear elevated. Respiratory: Lungs are clear to auscultation but decreased at the right base. Respirations are non-labored. Breath sounds are equal. Symmetrical chest wall expansion. Cardiovascular: Normal rate. Regular rhythm. No murmur. No gallop. No edema. Gastrointestinal: Soft. Normal bowel sounds. Skin: Warm. Dry. Neurologic: Alert and oriented to person, place, time. Cranial nerves 3-11 grossly intact. Psychiatric: Cooperative. Appropriate mood & affect. Labs Laboratory Tests Test 04/20/21 06:46 Range/Units Sodium Level 138 135-145 MMOL/L Potassium Level 4.0 3.6-5.0 MMOL/L Chloride Level 97 L 98-107 MMOL/L Carbon Dioxide Level 31 21-32 MMOL/L Anion Gap 10 5-14 MMOL/L Blood Urea Nitrogen 8 7-18 MG/DL Creatinine 0.49 L 0.60-1.30 MG/DL Estimat Glomerular Filtration Rate 122 BUN/Creatinine Ratio 16 Glucose Level 100 70-105 MG/DL Calcium Level 8.6 8.5-10.1 MG/DL Magnesium Level 1.7 1.6-2.4 MG/DL Diagnosis/Problems Diagnosis/Problems (1) Acute diastolic congestive heart failure Status: Acute Assessment & Plan: Her most recent chest x-ray from 04/19 shows ongoing infiltrate in the right base but no obvious pulmonary edema. Her IV furosemide was discontinued over the weekend. I suspect she may be euvolemic at this point in time. I will obtain a follow-up chest x-ray in the morning. (2) Pulmonary hypertension Status: Acute Assessment & Plan: Most likely related to the chronic underlying pulmonary disease accompanied by the heart failure and pneumonia. We may want to consider a follow-up echocardiogram in the next few months after discharge. (3) Acute on chronic respiratory failure with hypoxemia Status: Acute Assessment & Plan: Most likely related to possible exacerbation of chronic obstructive pulmonary disease with superimposed pneumonia. As above, it appears as though her heart failure has improved. (4) Essential hypertension Status: Chronic Assessment & Plan: Blood pressures remain well controlled on her outpatient dose of atenolol. (5) Mixed hyperlipidemia Status: Chronic Assessment & Plan: Continue fenofibrate and statin. BAR HUTSON JR, MD Apr 20, 2021 17:02
[2021-04-21 03:39] VITALS: BP 126/63
[2021-04-21] MEDS: PANTOPRAZOLE 20 MG TABLET (PROTONIX) PO SCH ×2 (05:49→17:08)
[2021-04-21] MEDS: MULTIVIT W/MINERALS TAB (THERAGRAN M) PO SCH (05:49)
[2021-04-21 06:51] LABS: POTASSIUM 3.7 MMOL/L (3.6-5.0)
[2021-04-21 06:52] LABS: CALCIUM 8.6 MG/DL (8.5-10.1)
[2021-04-21 06:57] LABS: CREATININE SERUM 0.46 MG/DL (0.60-1.30)
[2021-04-21 06:59] LABS: MAGNESIUM 1.6 MG/DL (1.6-2.4)
[2021-04-21 07:52] VITALS: BP 151/67
[2021-04-21] MEDS: ENOXAPARIN 40 MG/0.4 ML (LOVENOX) SYR SQ SCH (07:52)
[2021-04-21] MEDS: VITAMIN D3 25 MCG (1,000 UNITS) TABLET PO SCH (07:52)
[2021-04-21] MEDS: FLUoxetine HCL 20 MG (PROzac) CAP PO SCH (07:53)
[2021-04-21] MEDS: meTOproloL SUCCINATE 50 MG (TOPROL XL) TAB PO SCH (07:53)
[2021-04-21] MEDS: risperiDONE 0.5 MG (RisperDAL) TABLET PO SCH ×2 (07:53→20:48)
[2021-04-21] MEDS: CYCLOBENZAPRINE 10 MG (FLEXERIL) TAB PO SCH (07:53)
[2021-04-21] MEDS: ATENOLOL 50 MG (TENORMIN) TAB PO SCH (07:53)
[2021-04-21] MEDS: FENOFIBRATE 134 MG (LOFIBRA) CAPSULE PO SCH (07:53)
[2021-04-21] MEDS: FERROUS SULF 325 MG (IRON) TAB PO SCH ×2 (07:53→17:08)
[2021-04-21] MEDS: DOCUSATE SODIUM 100 MG (COLACE) CAP PO SCH ×2 (07:53→20:48)
--- NOTE | 2021-04-21 09:17 | Diagnostic Imaging Report ---
INDICATION: Pneumonia, followup. TECHNIQUE/COMPARISON: PA and lateral films of the chest were obtained at 8:48 AM and compared with 04/19/2021. FINDINGS: The heart is normal in size. There is mild central vascular congestion. There is extensive infiltrate throughout the right lung which appears similar to the prior study. There is no significant left-sided infiltrate. IMPRESSION: Stable extensive right-sided infiltrate, compatible with pneumonia. No new abnormality. Dictated by: Dictated on workstation # [id number]
--- NOTE | 2021-04-21 09:18 | Physical Therapy Daily Note ---
PT Daily Note-Current Subjective Patient agrees to PT. Family present. Mental Status Patient Orientation: Confused Attachments: Oxygen, Hunter Catheter Transfers SCALE: Activities may be completed with or without assistive devices. 9-Akefqncmrx-gtnxtgb completes the activity by him/herself with no assistance from a helper. 5-Set-up or Clean-up Assistance-helper sets up or cleans up; patient completes activity. [place] assists only prior to or following the activity. 4-Supervision or Touching Assistance-helper provides verbal cues and/or touching/steadying and/or contact guard assistance as patient completes activity. Assistance may be provided throughout the activity or intermittently. 3-Partial/Moderate Assistance-helper does LESS THAN HALF the effort. [place] lifts, holds or supports trunk or limbs, but provides less than half the effort. 2-Substantial/Maximal Assistance-helper does MORE THAN HALF the effort. [place] lifts or holds trunk or limbs and provides more than half the effort. 7-Avjxguock-puxxyc does ALL the effort. Patient does none of the effort to complete the activity. Or, the assistance of 2 or more helpers is required for the patient to complete the activity. If activity was not attempted, code reason: 7-Patient Refused. 9-Not Applicable-not attempted and the patient did not perform the activity before the current illness, exacerbation or injury. 10-Not Attempted due to Environmental Limitations-(lack of equipment, weather restraints, etc.). 88-Not Attempted due to Medical Conditions or Safety Concerns. Sit to Stand (QC): 4 Chair/Fze-kq-Edrvc Xfer(QC): 4 Gait Training Does the Patient Walk?: Yes Distance: 350' Walk 10 feet (QC): 4 Walk 50 ft with 2 Turns(QC): 4 Walk 150 ft (QC): 4 Gait Assistive Device: FWW extended UE's with FWW use with VC's to correct Exercises Seated Therapy Exercises: Ankle pumps, Long arc quads, Hip flexion Seated Reps: 12 Assessment Patient tolerated treatment well and is up in recliner with needs met. Increase activity as tolerated. PT Care Home Goals Car Hopper Goals PT Care Home Goals Time Frame: Apr 25, 2021 Roll Left & Right (QC): 5 Sit to Lying (QC): 5 Lying-Sitting on Side/Bed(QC): 5 Sit to Stand (QC): 5 Chair/Fvz-ac-Srdoy Xfer(QC): 5 Toilet Transfer (QC): 5 Walk 10 feet (QC): 5 Walk 50ft with 2 Turns (QC): 5 Walk 150 ft (QC): 5 PT Plan Treatment/Plan Treatment Plan: Continue Plan of Care Treatment Plan: Bed Mobility, Education, Functional Activity Tosin, Functional Strength, Gait, Safety, Therapeutic Exercise, Transfers Treatment Duration: Apr 25, 2021 Frequency: 6 times per week Estimated Hrs Per Day: .25 hour per day Patient and/or Family Agrees t: Yes Time/GCodes Time In: 843 Time Out: 856 Total Billed Treatment Time: 13 Total Billed Treatment 1 visit FA 13 min ZOHRA HYATT PT Apr 21, 2021 09:18
[2021-04-21] MEDS: LORazepam 1 MG (ATIVAN) TAB PO SCH ×2 (09:24→17:08)
[2021-04-21] MEDS: LACTULOSE SYRUP 10GM/15ML (ENULOSE) 30ML UDC PO SCH ×2 (09:24→20:48)
[2021-04-21] MEDS: SENNA W/DOCUSATE (SENOKOT S) TABLET PO SCH ×2 (09:24→20:48)
[2021-04-21] MEDS: polyethylene glycoL POWDER 17 GM (MIRALAX) PACK PO SCH ×2 (09:24→20:48)
[2021-04-21] MEDS: RT-ALBUTEROL/IPRATROPIUM 3 ML (DUONEB) VIAL INH SCH ×2 (10:37→21:04)
--- NOTE | 2021-04-21 11:33 | Occupational Ther Daily Note ---
OT Current Status-Daily Note Subjective Pt sleeping in bed, woke to name. Pt groggy until sitting EOB. Pt agrees to therapy. Mental Status/Objective Patient Orientation: Person, Confused, Situation Attachments: Hunter Catheter, IV, Oxygen ADL-Treatment Pt requires verbal cue for log roll to sitting due to grogginess. CGA due to grogginess to ambulate to bathroom. Pt sat at sink to complete oral care with supervision, pt completed task by self. Verbal cues to initiate bathing with bath pack sitting at sink. Pt able to cleanse all areas except lower legs and feet due to back precautions, CGA in standing while pt cleansed melina area/buttocks. Assist to [facility] gown. Pt then ambulated back to room and sat in recliner using FWW, CGA. Pt required physical cues to position FWW correctly during ambulation and transfers. After session, pt sitting in recliner with call light/phone in reach. All needs met in room. Therapy Code Descriptions/Definitions Functional [place] Measure: 0=Not Assessed/NA 4=Minimal Assistance 1=Total Assistance 5=Supervision or Setup 2=Maximal Assistance 6=Modified [place] 3=Moderate Assistance 7=Complete IndependenceSCALE: Activities may be completed with or without assistive devices. 9-Iittlipkqn-lnszezc completes the activity by him/herself with no assistance from a helper. 5-Set-up or Clean-up Assistance-helper sets up or cleans up; patient completes activity. [place] assists only prior to or following the activity. 4-Supervision or Touching Assistance-helper provides verbal cues and/or touching/steadying and/or contact guard assistance as patient completes activity. Assistance may be provided throughout the activity or intermittently. 3-Partial/Moderate Assistance-helper does LESS THAN HALF the effort. [place] lifts, holds or supports trunk or limbs, but provides less than half the effort. 2-Substantial/Maximal Assistance-helper does MORE THAN HALF the effort. [place] lifts or holds trunk or limbs and provides more than half the effort. 3-Wokaycshv-mntris does ALL the effort. Patient does none of the effort to complete the activity. Or, the assistance of 2 or more helpers is required for the patient to complete the activity. If activity was not attempted, code reason: 7-Patient Refused. 9-Not Applicable-not attempted and the patient did not perform the activity before the current illness, exacerbation or injury. 10-Not Attempted due to Environmental Limitations-(lack of equipment, weather restraints, etc.). 88-Not Attempted due to Medical Conditions or Safety Concerns. Oral Hygiene (QC): 4 Shower/Bathe Self (QC): 4 OT Short Term Goals Short Term Goals Time Frame: Apr 20, 2021 Eatin Oral hygiene: 4 Toileting hygiene: 3 Shower/bathe self: 3 Upper body dressin Lower body dressin Putting on/taking off footwear: 3 OT Fci Goals Fci Goals Time Frame: Apr 27, 2021 Eating (QC): 6 Oral Hygiene (QC): 5 Toileting Hygiene (QC): 4 Shower/Bathe Self (QC): 4 Upper Body Dressing (QC): 5 Lower Body Dressing (QC): 4 On/Off Footwear (QC): 4 Additional Goals: 1-Demonstrate ADL Tasks, 2-Verbalize Understanding, 3- ImproveStrength/Tosin 1=Demonstrate adherence to instructed precautions during ADL tasks. 2=Patient will verbalize/demonstrate understanding of assistive letitia js/modifications for ADL. 3=Patient will improve strength/tolerance for activity to enable patient to perform ADL's. OT Education/Plan Problem List/Assessment Assessment: Decreased Activ Tolerance, Decreased Safety Aware, Impaired Cognition, Impaired Self-Care Skills Discharge Recommendations Plan/Recommendations: Continue POC Treatment Plan/Plan of Care Patient would benefit from OT for education, treatment and training to promote independence in ADL's, mobility, safety and/or upper extremity function for ADL's. Plan of Care: ADL Retraining, Functional Mobility, UE Funct Exercise/Act Treatment Duration: Apr 27, 2021 Frequency: 5 times per week Estimated Hrs Per Day: .25 hour per day Agreement: Yes Rehab Potential: Fair Time/GCodes Start Time: 10:45 Stop Time: 10:23 Total Time Billed (hr/min): 38 Billed Treatment Time 1 visit-ADL 3 (38 min) BRIANNA BARTLETT Apr 21, 2021 11:33
[2021-04-21 11:43] VITALS: BP 143/73
[2021-04-21 16:00] VITALS: BP 125/60
--- NOTE | 2021-04-21 16:54 | Cardiology Progress Note ---
Progress Note-Cardiology Events since last exam Date Seen by Provider: Apr 21, 2021 Time Seen by Provider: 16:50 Events since last exam We have been seeing her for heart failure. Her breathing continues to improve. She has been ambulating with physical therapy. I spoke to her and daughter at the bedside. 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 She denies chest discomfort, palpitations, syncope, or ankle edema. The discharge plan may be for discharge home with home health and home physical therapy versus a short stay in skilled rehab. Certain portions of this document may have been dictated utilizing voice recognition technology. Inherent to this technology, typographical and grammatical errors may exist. As much as I am diligent to identify and correct these mistakes, some errors may remain in the document. Vitals Last set of Vitals Signs Vital Signs 04/21/21 16:00 Temp 36.9 Pulse 73 Resp 22 B/P (MAP) 125/60 (81) Pulse Ox 95 O2 Delivery High Flow N/C O2 Flow Rate 6.00 Labs Labs Laboratory Tests 04/21/21 06:33 Exam Vital Signs Vital Signs Date Time Temp Pulse Resp B/P (MAP) Pulse Ox O2 Delivery O2 Flow Rate FiO2 04/21/21 16:00 36.9 73 22 125/60 (81) 95 High Flow N/C 6.00 Physical Exam General: Alert. No acute distress. Eye: No xanthelasma. HENT: Normocephalic. Neck: Jugular venous pressure does not appear elevated. Respiratory: Lungs are clear to auscultation. Respirations are non-labored. Breath sounds are equal. Symmetrical chest wall expansion. Cardiovascular: Normal rate. Regular rhythm. No murmur. No gallop. No edema. Gastrointestinal: Soft. Normal bowel sounds. Skin: Warm. Dry. Neurologic: Alert and oriented to person, place, time. Cranial nerves 3-11 grossly intact. Psychiatric: Cooperative. Appropriate mood & affect. Labs Laboratory Tests Test 04/21/21 06:33 Range/Units Sodium Level 137 135-145 MMOL/L Potassium Level 3.7 3.6-5.0 MMOL/L Chloride Level 98 98-107 MMOL/L Carbon Dioxide Level 30 21-32 MMOL/L Anion Gap 9 5-14 MMOL/L Blood Urea Nitrogen 7 7-18 MG/DL Creatinine 0.46 L 0.60-1.30 MG/DL Estimat Glomerular Filtration Rate 132 BUN/Creatinine Ratio 15 Glucose Level 90 70-105 MG/DL Calcium Level 8.6 8.5-10.1 MG/DL Magnesium Level 1.6 1.6-2.4 MG/DL Diagnosis/Problems Diagnosis/Problems (1) Acute diastolic congestive heart failure Status: Acute Assessment & Plan: Follow-up chest x-ray from this morning did not show any signs of pulmonary edema. She is off diuretics. I suspect she is euvolemic. At this point, her heart failure seems to be resolved. As such, cardiology will sign off. Please call if you have other questions or concerns. (2) Pulmonary hypertension Status: Acute Assessment & Plan: Most likely related to the chronic underlying pulmonary disease accompanied by the heart failure and pneumonia. We may want to consider a follow-up echocardiogram in the next few months after discharge. The patient's and daughter would like to discuss this further and will contact her office if they are interested in making a follow-up visit. (3) Acute on chronic respiratory failure with hypoxemia Status: Acute Assessment & Plan: Most likely related to possible exacerbation of chronic obstructive pulmonary disease with superimposed pneumonia. As above, it appears as though her heart failure has improved. (4) Essential hypertension Status: Chronic Assessment & Plan: Blood pressures for the most part remain well controlled on her outpatient dose of atenolol. (5) Mixed hyperlipidemia Status: Chronic Assessment & Plan: Continue fenofibrate and statin. BAR HUTSON JR, MD Apr 21, 2021 16:54
[2021-04-21 19:32] VITALS: BP 139/64
--- NOTE | 2021-04-21 20:39 | Progress Note ---
Subjective Subjective/Events-last exam Patient resting comfortably. Patient is feeling better this AM. She was up with PT this AM and did well. Tolerating PO diet. Review of Systems Pulmonary: Dyspnea, Cough Cardiovascular: No: Chest Pain, Palpitations, Edema Gastrointestinal: No: Nausea, Vomiting, Abdominal Pain, Diarrhea, Constipation Genitourinary: No Dysuria, No Frequency Musculoskeletal: No: neck pain, shoulder pain Neurological: Weakness, Incoordination Focused Exam Time of Focused Exam: 18:15 Objective Exam Last Set of Vital Signs Vital Signs Date Time Temp Pulse Resp B/P (MAP) Pulse Ox O2 Delivery O2 Flow Rate FiO2 04/21/21 19:32 36.8 70 20 139/64 (89) 95 High Flow N/C 6.00 Capillary Refill : Less Than 3 Seconds I&O Intake and Output 04/21/21 00:00 Intake Total 4245 ml Output Total 825 ml Balance 3420 ml Intake Oral 1245 ml IV Total 3000 ml Output Urine Total 825 ml # Bowel Movements 4 General: Alert, Oriented X3, Cooperative, Mild Distress (with exercise) Lungs: Other (diminished breath sounds, no wheezing or crackles) Heart: Regular Rate, No Murmurs Abdomen: Normal Bowel Sounds, Soft, No Tenderness, No Masses Extremities: No Edema, No Tenderness/Swelling Skin: No Rashes, No Breakdown Neuro: Strength at 5/5 X4 Ext, Sensation Intact, Cranial Nerves 3-12 NL Results/Procedures Lab Laboratory Tests 04/21/21 06:33: Sodium Level 137, Potassium Level 3.7, Chloride Level 98, Carbon Dioxide Level 30, Anion Gap 9, Blood Urea Nitrogen 7, Creatinine 0.46L, Estimat Glomerular Filtration Rate 132, BUN/Creatinine Ratio 15, Glucose Level 90, Calcium Level 8.6, Magnesium Level 1.6 Microbiology 04/16/21 MRSA Screen - Final, Complete MRSA not isolated 04/15/21 Blood Culture - Preliminary, Resulted Staph, Coag Neg ([employer]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 Exam: Portable chest x-ray upright view. Comparisons: Chest x-ray dated 04/11/2021. Findings: There is interval progression of patchy lung infiltrates involving right upper lobe and right lower lung field region. There is minimal left basilar atelectasis. There is interval blunting of the right costophrenic angle region and a small pleural effusion cannot be excluded. There is no pneumothorax. Pulmonary vasculature and cardiac silhouette are within normal limits. There are degenerative spurs involving the thoracic spine. IMPRESSION: 1: There is interval progression of right lung pneumonia. Possible interval development of a small right pleural effusion. Dictated on workstation # [id number] Dict: 04/15/21 1136 Trans: 04/15/21 1137 [facility] [id number] Interpreted by: ISABELLE SANDRA MD Electronically signed by: Assessment/Plan Assessment/Plan (1) Acute on chronic respiratory failure with hypoxemia Status: Acute Assessment & Plan: 04/20: Patient with recent spinal surgery which likely played a role in PNA, Encouraged OOB with PT, Incentive Spirometer, will continue to titrate oxygen as needed 83: Will continue to titrate as tolerated, Continue to work with PT and use IS (2) Acute diastolic congestive heart failure Status: Acute Assessment & Plan: 04/20: Discussed low salt diet and daily weights (3) Pneumonia Status: Acute Assessment & Plan: 04/21: Continue IV antibiotics Qualifiers: Qualified Codes: J18.9 - Pneumonia, unspecified organism (4) Iron deficiency anemia Status: Acute Assessment & Plan: 04/20: Patient seen by Dr Williamson, anemia is stable 04/21: Will start patient on Iron supplementation (5) Pulmonary hypertension Status: Acute (6) Mixed hyperlipidemia Status: Chronic (7) Essential hypertension Status: Chronic (8) Debility Status: Acute Assessment & Plan: 04/20: Discussed with patient that SNF for IRF would be very beneficial, SW has been working on placement near [place] 04/21: Patient and family now wanting to go home with HH (9) H/O Spinal surgery CK PITTMAN MD Apr 21, 2021 20:39
[2021-04-21 23:42] VITALS: BP 135/73
[2021-04-22 03:36] VITALS: BP 149/78
[2021-04-22] MEDS: MULTIVIT W/MINERALS TAB (THERAGRAN M) PO SCH (05:50)
[2021-04-22] MEDS: PANTOPRAZOLE 20 MG TABLET (PROTONIX) PO SCH (05:50)
[2021-04-22 06:40] LABS: CALCIUM 8.6 MG/DL (8.5-10.1); CREATININE SERUM 0.43 MG/DL (0.60-1.30); MAGNESIUM 1.8 MG/DL (1.6-2.4); POTASSIUM 3.7 MMOL/L (3.6-5.0)
[2021-04-22 07:43] VITALS: BP 165/79
[2021-04-22] MEDS: RT-ALBUTEROL/IPRATROPIUM 3 ML (DUONEB) VIAL INH SCH ×2 (08:01→21:26)
[2021-04-22] MEDS: LORazepam 1 MG (ATIVAN) TAB PO SCH ×2 (08:09→18:38)
[2021-04-22] MEDS: FERROUS SULF 325 MG (IRON) TAB PO SCH ×2 (08:09→18:47)
[2021-04-22] MEDS: risperiDONE 0.5 MG (RisperDAL) TABLET PO SCH ×2 (08:10→20:21)
[2021-04-22] MEDS: SENNA W/DOCUSATE (SENOKOT S) TABLET PO SCH ×2 (08:10→19:12)
[2021-04-22] MEDS: ATENOLOL 50 MG (TENORMIN) TAB PO SCH (08:10)
[2021-04-22] MEDS: meTOproloL SUCCINATE 50 MG (TOPROL XL) TAB PO SCH (08:10)
[2021-04-22] MEDS: ENOXAPARIN 40 MG/0.4 ML (LOVENOX) SYR SQ SCH (08:10)
[2021-04-22] MEDS: VITAMIN D3 25 MCG (1,000 UNITS) TABLET PO SCH (08:10)
[2021-04-22] MEDS: CYCLOBENZAPRINE 10 MG (FLEXERIL) TAB PO SCH (08:10)
[2021-04-22] MEDS: FENOFIBRATE 134 MG (LOFIBRA) CAPSULE PO SCH (08:10)
[2021-04-22] MEDS: polyethylene glycoL POWDER 17 GM (MIRALAX) PACK PO SCH ×2 (08:10→19:12)
[2021-04-22] MEDS: FLUoxetine HCL 20 MG (PROzac) CAP PO SCH (08:10)
[2021-04-22] MEDS: LACTULOSE SYRUP 10GM/15ML (ENULOSE) 30ML UDC PO SCH ×2 (08:11→19:12)
[2021-04-22] MEDS: DOCUSATE SODIUM 100 MG (COLACE) CAP PO SCH ×2 (08:11→19:12)
--- NOTE | 2021-04-22 11:05 | Occupational Ther Daily Note ---
OT Current Status-Daily Note Subjective Pt alert, sitting in recliner. Pt continues to be pleasantly confused about situation and place. Family present in room. No c/o pain. Mental Status/Objective Patient Orientation: Person, Place, Time, Situation Attachments: Hunter Catheter, IV, Oxygen ADL-Treatment Therapy Code Descriptions/Definitions Functional [place] Measure: 0=Not Assessed/NA 4=Minimal Assistance 1=Total Assistance 5=Supervision or Setup 2=Maximal Assistance 6=Modified [place] 3=Moderate Assistance 7=Complete IndependenceSCALE: Activities may be completed with or without assistive devices. 5-Czixsvqzjh-dhbhcjy completes the activity by him/herself with no assistance from a helper. 5-Set-up or Clean-up Assistance-helper sets up or cleans up; patient completes activity. [place] assists only prior to or following the activity. 4-Supervision or Touching Assistance-helper provides verbal cues and/or touching/steadying and/or contact guard assistance as patient completes activity. Assistance may be provided throughout the activity or intermittently. 3-Partial/Moderate Assistance-helper does LESS THAN HALF the effort. [place] lifts, holds or supports trunk or limbs, but provides less than half the effort. 2-Substantial/Maximal Assistance-helper does MORE THAN HALF the effort. [place] lifts or holds trunk or limbs and provides more than half the effort. 7-Uvypebatg-vbdctb does ALL the effort. Patient does none of the effort to complete the activity. Or, the assistance of 2 or more helpers is required for the patient to complete the activity. If activity was not attempted, code reason: 7-Patient Refused. 9-Not Applicable-not attempted and the patient did not perform the activity before the current illness, exacerbation or injury. 10-Not Attempted due to Environmental Limitations-(lack of equipment, weather restraints, etc.). 88-Not Attempted due to Medical Conditions or Safety Concerns. Other Treatment Pt demonstrated the exercises that she has completed in past therapy session at a [facility] home she was in. Pt had good ROM in all planes and strength. Pt requested to ambulate around room because her LE's hurt. Pt required reminders to walk inside FWW and to problem solve how to move FWW when it was stuck on furniture. Pt able to ambulated around room 3x's without LOB. After therapy, physician present in room. All needs met in room. OT Short Term Goals Short Term Goals Time Frame: Apr 20, 2021 Eatin Oral hygiene: 4 Toileting hygiene: 3 Shower/bathe self: 3 Upper body dressin Lower body dressin Putting on/taking off footwear: 3 OT Door Puller Goals Fpc Goals Time Frame: Apr 27, 2021 Eating (QC): 6 Oral Hygiene (QC): 5 Toileting Hygiene (QC): 4 Shower/Bathe Self (QC): 4 Upper Body Dressing (QC): 5 Lower Body Dressing (QC): 4 On/Off Footwear (QC): 4 Additional Goals: 1-Demonstrate ADL Tasks, 2-Verbalize Understanding, 3- ImproveStrength/Tosin 1=Demonstrate adherence to instructed precautions during ADL tasks. 2=Patient will verbalize/demonstrate understanding of assistive devices/modifications for ADL. 3=Patient will improve strength/tolerance for activity to enable patient to perform ADL's. OT Education/Plan Problem List/Assessment Assessment: Decreased Activ Tolerance, Decreased Safety Aware, Decreased UE Strength, Impaired Self-Care Skills Discharge Recommendations Plan/Recommendations: Continue POC Treatment Plan/Plan of Care Patient would benefit from OT for education, treatment and training to promote independence in ADL's, mobility, safety and/or upper extremity function for ADL's. Plan of Care: ADL Retraining, Functional Mobility, UE Funct Exercise/Act Treatment Duration: Apr 27, 2021 Frequency: 5 times per week Estimated Hrs Per Day: .25 hour per day Agreement: Yes Rehab Potential: Fair Time/GCodes Start Time: 10:16 Stop Time: 10:31 Total Time Billed (hr/min): 15 Billed Treatment Time 1 visit-FA 1 (15 min) BRIANNA BARTLETT Apr 22, 2021 11:05
--- NOTE | 2021-04-22 11:08 | Physical Therapy Daily Note ---
PT Daily Note-Current Subjective Patient in recliner pre tx, agrees to PT, states she has some minor low back pain. Appearance Patient in recliner post tx with nurse call, phone, tray, all needs met. Family in the room and they state that will be in her room to keep watch on her for a while. Mental Status Patient Orientation: Person, Confused Attachments: Oxygen, Hunter Catheter Transfers SCALE: Activities may be completed with or without assistive devices. 1-Ewmtifctkb-qqxhssm completes the activity by him/herself with no assistance from a helper. 5-Set-up or Clean-up Assistance-helper sets up or cleans up; patient completes activity. [place] assists only prior to or following the activity. 4-Supervision or Touching Assistance-helper provides verbal cues and/or touching/steadying and/or contact guard assistance as patient completes activity. Assistance may be provided throughout the activity or intermittently. 3-Partial/Moderate Assistance-helper does LESS THAN HALF the effort. [place] lifts, holds or supports trunk or limbs, but provides less than half the effort. 2-Substantial/Maximal Assistance-helper does MORE THAN HALF the effort. [place] lifts or holds trunk or limbs and provides more than half the effort. 8-Iidvidqhy-istxxe does ALL the effort. Patient does none of the effort to complete the activity. Or, the assistance of 2 or more helpers is required for the patient to complete the activity. If activity was not attempted, code reason: 7-Patient Refused. 9-Not Applicable-not attempted and the patient did not perform the activity before the current illness, exacerbation or injury. 10-Not Attempted due to Environmental Limitations-(lack of equipment, weather restraints, etc.). 88-Not Attempted due to Medical Conditions or Safety Concerns. Sit to Stand (QC): 4 Chair/Xqx-gj-Utlrk Xfer(QC): 4 Gait Training Distance: 400' Walk 10 feet (QC): 4 Walk 50 ft with 2 Turns(QC): 4 Walk 150 ft (QC): 4 Gait Persons Needed: 1 Gait Assistive Device: FWW slow but steady ambulation, tends to let walker get too far in front of her, cues to correct this, needs occasional assist when turning Exercises Seated Therapy Exercises: Ankle pumps, Long arc quads Seated Reps: 20 Treatments transfers, ambulation, LE exercise Assessment Current Status: Poor Progress Patient continues to be very confused PT Clinical Admissions Manager Goals Clinical Admissions Manager Goals PT Nursing Home Goals Time Frame: Apr 25, 2021 Roll Left & Right (QC): 5 Sit to Lying (QC): 5 Lying-Sitting on Side/Bed(QC): 5 Sit to Stand (QC): 5 Chair/Tam-eg-Swmkw Xfer(QC): 5 Toilet Transfer (QC): 5 Walk 10 feet (QC): 5 Walk 50ft with 2 Turns (QC): 5 Walk 150 ft (QC): 5 PT Plan Problem List Problem List: Activity Tolerance, Functional Strength, Safety, Balance, Gait, Transfer, Bed Mobility, ROM Treatment/Plan Treatment Plan: Continue Plan of Care Treatment Plan: Bed Mobility, Education, Functional Activity Tosin, Functional Strength, Gait, Safety, Therapeutic Exercise, Transfers Treatment Duration: Apr 25, 2021 Frequency: 6 times per week Estimated Hrs Per Day: .25 hour per day Patient and/or Family Agrees t: Yes Safety Risks/Education Patient Education: Gait Training, Transfer Techniques, Correct Positioning, Safety Issues Teaching Recipient: Patient Teaching Methods: Demonstration, Discussion Response to Teaching: Reinforcement Needed Time/GCodes Time In: 1037 Time Out: 1055 Total Billed Treatment Time: 18 Total Billed Treatment 1 visit GT 18' MICHA RINALDI PT Apr 22, 2021 11:08
[2021-04-22 11:28] VITALS: BP 163/78
[2021-04-22] MEDS: PANTOPRAZOLE 40 MG (PROTONIX) TAB PO SCH (15:50)
[2021-04-22 16:26] VITALS: BP 168/79
[2021-04-22 19:08] VITALS: BP 131/61
--- NOTE | 2021-04-22 20:41 | Progress Note ---
Subjective Subjective/Events-last exam Patient up in chair this AM, she is about to go for a walk with PT. Tolerating PO diet. BM last night. Review of Systems Pulmonary: Dyspnea, Cough Cardiovascular: No: Chest Pain, Palpitations Gastrointestinal: No: Nausea, Vomiting, Abdominal Pain, Diarrhea, Constipation Genitourinary: No Dysuria, No Frequency Neurological: Weakness, Incoordination, Confusion Focused Exam Time of Focused Exam: 18:15 Objective Exam Last Set of Vital Signs Vital Signs Date Time Temp Pulse Resp B/P (MAP) Pulse Ox O2 Delivery O2 Flow Rate FiO2 04/22/21 19:08 36.6 75 20 131/61 (84) 97 High Flow N/C 6.00 Capillary Refill : Less Than 3 Seconds I&O Intake and Output 04/22/21 00:00 Intake Total 2650 ml Output Total 1350 ml Balance 1300 ml Intake Oral 1650 ml IV Total 1000 ml Output Urine Total 1350 ml # Bowel Movements 5 General: Alert (Oriented x 2) Lungs: Other (dimished breath sounds, + wheezing diffusely, normal work of breathing at rest, increased work of breathing with activity) Heart: Regular Rate, No Murmurs Abdomen: Normal Bowel Sounds, Soft, No Tenderness, No Masses Extremities: No Tenderness/Swelling, Other (2+ pitting edema equal bilaterally) Skin: No Rashes, No Breakdown Neuro: Normal Speech, Sensation Intact, Cranial Nerves 3-12 NL Results/Procedures Lab Laboratory Tests 04/22/21 05:53: Sodium Level 136, Potassium Level 3.7, Chloride Level 100, Carbon Dioxide Level 28, Anion Gap 8, Blood Urea Nitrogen 6L, Creatinine 0.43L, Estimat Glomerular F iltration Rate 142, BUN/Creatinine Ratio 14, Glucose Level 93, Calcium Level 8.6, Magnesium Level 1.8 Microbiology 04/16/21 MRSA Screen - Final, Complete MRSA not isolated 04/15/21 Blood Culture - Final, Complete Staph, 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 Exam: Portable chest x-ray upright view. Comparisons: Chest x-ray dated 04/11/2021. Findings: There is interval progression of patchy lung infiltrates involving right upper lobe and right lower lung field region. There is minimal left basilar atelectasis. There is interval blunting of the right costophrenic angle region and a small pleural effusion cannot be excluded. There is no pneumothorax. Pulmonary vasculature and cardiac silhouette are within normal limits. There are degenerative spurs involving the thoracic spine. IMPRESSION: 1: There is interval progression of right lung pneumonia. Possible interval development of a small right pleural effusion. Dictated on workstation # [id number] Dict: 04/15/21 1136 Trans: 04/15/21 1137 [facility] [id number] Interpreted by: ISABELLE SANDRA MD Electronically signed by: Assessment/Plan Assessment/Plan (1) Acute on chronic respiratory failure with hypoxemia Status: Acute Assessment & Plan: 04/20: Patient with recent spinal surgery which likely played a role in PNA, Encouraged OOB with PT, Incentive Spirometer, will continue to titrate oxygen as needed 3: Will continue to titrate as tolerated, Continue to work with PT and use IS 04/22: No titration over the last 24 hrs, continue to work with PT, discussed with patient and son that my recommendation is to go to SNF for continued rehab and close monitoring, their concerns are regarding the families ability to see patient due to covid restrictions, she previously failed HH after back surgery (2) Acute diastolic congestive heart failure Status: Acute Assessment & Plan: 04/20: Discussed low salt diet and daily weights 04/22: Weight increased 10 Kg over last 48 hrs, dose of lasix given today (3) Pneumonia Status: Acute Assessment & Plan: 04/21: Continue IV antibiotics Qualifiers: Qualified Codes: J18.9 - Pneumonia, unspecified organism (4) Iron deficiency anemia Status: Acute Assessment & Plan: 04/20: Patient seen by Dr Williamson, anemia is stable 04/21: Will start patient on Iron supplementation (5) Pulmonary hypertension Status: Acute (6) Mixed hyperlipidemia Status: Chronic (7) Essential hypertension Status: Chronic (8) Debility Status: Acute Assessment & Plan: 04/20: Discussed with patient that SNF for IRF would be very beneficial, SW has been working on placement near [place] 04/21: Patient and family now wanting to go home with (9) H/O Spinal surgery CK PITTMAN MD Apr 22, 2021 20:41
[2021-04-22] MEDS ORDERED: FUROSEMIDE 40 MG/4 ML INJ (LASIX) IVP ONE (20:45)
[2021-04-22 23:40] VITALS: BP 142/63
[2021-04-23] VITALS (7 sets, daily range): BP systolic 120–155; BP diastolic 57–76
[2021-04-23] MEDS: MULTIVIT W/MINERALS TAB (THERAGRAN M) PO SCH (06:11)
[2021-04-23] MEDS: PANTOPRAZOLE 40 MG (PROTONIX) TAB PO SCH ×2 (06:11→17:30)
[2021-04-23 06:35] LABS: BASOPHILS % (AUTO) 0 % (0-10); EOSINOPHILS % (AUTO) 0 % (0-10); HEMATOCRIT 31 % (35-52); HEMOGLOBIN 9.6 g/dL (11.5-16.0); LYMPHOCYTES # (AUTO) 1.2 10^3/uL (1.0-4.0); LYMPHOCYTES % (AUTO) 24 % (12-44); MEAN CORPUSCULAR HEMOGLOBIN 30 pg (25-34); MEAN CORPUSCULAR HGB CONC 31 g/dL (32-36); MEAN CORPUSCULAR VOLUME 96 fL (80-99); MEAN PLATELET VOLUME 11.8 fL (9.0-12.2); MONOCYTES # (AUTO) 0.3 10^3/uL (0.0-1.0); MONOCYTES % (AUTO) 6 % (0-12); NEUTROPHILS # (AUTO) 3.5 10^3/uL (1.8-7.8); NEUTROPHILS % (AUTO) 68 % (42-75); PLATELET COUNT 231 10^3/uL (130-400); WHITE BLOOD COUNT 5.1 10^3/uL (4.3-11.0)
[2021-04-23] MEDS: RT-ALBUTEROL/IPRATROPIUM 3 ML (DUONEB) VIAL INH SCH ×2 (06:46→21:09)
[2021-04-23 06:49] LABS: CALCIUM 8.8 MG/DL (8.5-10.1)
[2021-04-23 06:53] LABS: CREATININE SERUM 0.47 MG/DL (0.60-1.30)
[2021-04-23 06:55] LABS: MAGNESIUM 1.5 MG/DL (1.6-2.4)
[2021-04-23] MEDS: LACTULOSE SYRUP 10GM/15ML (ENULOSE) 30ML UDC PO SCH ×2 (08:00→20:14)
[2021-04-23] MEDS: DOCUSATE SODIUM 100 MG (COLACE) CAP PO SCH ×2 (08:00→20:14)
[2021-04-23] MEDS: polyethylene glycoL POWDER 17 GM (MIRALAX) PACK PO SCH ×2 (08:00→20:13)
[2021-04-23] MEDS: SENNA W/DOCUSATE (SENOKOT S) TABLET PO SCH ×2 (08:00→20:14)
[2021-04-23] MEDS: risperiDONE 0.5 MG (RisperDAL) TABLET PO SCH ×2 (08:53→20:13)
[2021-04-23] MEDS: meTOproloL SUCCINATE 50 MG (TOPROL XL) TAB PO SCH (08:53)
[2021-04-23] MEDS: FERROUS SULF 325 MG (IRON) TAB PO SCH ×2 (08:53→17:30)
[2021-04-23] MEDS: FLUoxetine HCL 20 MG (PROzac) CAP PO SCH (08:53)
[2021-04-23] MEDS: FENOFIBRATE 134 MG (LOFIBRA) CAPSULE PO SCH (08:53)
[2021-04-23] MEDS: LORazepam 1 MG (ATIVAN) TAB PO SCH ×2 (08:53→17:30)
[2021-04-23] MEDS: VITAMIN D3 25 MCG (1,000 UNITS) TABLET PO SCH (08:53)
[2021-04-23] MEDS: ENOXAPARIN 40 MG/0.4 ML (LOVENOX) SYR SQ SCH (08:53)
[2021-04-23] MEDS: ATENOLOL 50 MG (TENORMIN) TAB PO SCH (08:53)
[2021-04-23] MEDS: CYCLOBENZAPRINE 10 MG (FLEXERIL) TAB PO SCH (09:22)
[2021-04-23] MEDS ORDERED: FUROSEMIDE 40 MG/4 ML INJ (LASIX) IVP ONE (09:30)
--- NOTE | 2021-04-23 09:42 | Occupational Ther Daily Note ---
OT Current Status-Daily Note Subjective Pt alert, lying in bed. Pt stated that she just got back into bed and did not want to get out. Pt agrees to complete B UE exercises in bed. No c/o pain. Mental Status/Objective Patient Orientation: Person Attachments: Hunter Catheter, IV, Oxygen ADL-Treatment Therapy Code Descriptions/Definitions Functional [place] Measure: 0=Not Assessed/NA 4=Minimal Assistance 1=Total Assistance 5=Supervision or Setup 2=Maximal Assistance 6=Modified [place] 3=Moderate Assistance 7=Complete IndependenceSCALE: Activities may be completed with or without assistive devices. 0-Xubnthzdcd-spzwicv completes the activity by him/herself with no assistance from a helper. 5-Set-up or Clean-up Assistance-helper sets up or cleans up; patient completes activity. [place] assists only prior to or following the activity. 4-Supervision or Touching Assistance-helper provides verbal cues and/or touching/steadying and/or contact guard assistance as patient completes activity. Assistance may be provided throughout the activity or intermittently. 3-Partial/Moderate Assistance-helper does LESS THAN HALF the effort. [place] lifts, holds or supports trunk or limbs, but provides less than half the effort. 2-Substantial/Maximal Assistance-helper does MORE THAN HALF the effort. [place] lifts or holds trunk or limbs and provides more than half the effort. 8-Uuwvxoxww-mlaypw does ALL the effort. Patient does none of the effort to complete the activity. Or, the assistance of 2 or more helpers is required for the patient to complete the activity. If activity was not attempted, code reason: 7-Patient Refused. 9-Not Applicable-not attempted and the patient did not perform the activity before the current illness, exacerbation or injury. 10-Not Attempted due to Environmental Limitations-(lack of equipment, weather restraints, etc.). 88-Not Attempted due to Medical Conditions or Safety Concerns. Other Treatment Pt completed 3 exercises against gravity to strengthen B UE for daily functional tasks. Exercises incorporated all planes and pt was able to complete 15 reps of each exercise before tiring. Pt requires skilled instruction and cues to complete each exercise with correct technique. After therapy, pt lying in bed with call light/phone in reach. All needs met in room. OT Short Term Goals Short Term Goals Time Frame: Apr 20, 2021 Eatin Oral hygiene: 4 Toileting hygiene: 3 Shower/bathe self: 3 Upper body dressin Lower body dressin Putting on/taking off footwear: 3 OT It Audit Manager Goals Snf Goals Time Frame: Apr 27, 2021 Eating (QC): 6 Oral Hygiene (QC): 5 Toileting Hygiene (QC): 4 Shower/Bathe Self (QC): 4 Upper Body Dressing (QC): 5 Lower Body Dressing (QC): 4 On/Off Footwear (QC): 4 Additional Goals: 1-Demonstrate ADL Tasks, 2-Verbalize Understanding, 3- ImproveStrength/Tosin 1=Demonstrate adherence to instructed precautions during ADL tasks. 2=Patient will verbalize/demonstrate understanding of assistive devices/modifications for ADL. 3=Patient will improve strength/tolerance for activity to enable patient to perform ADL's. OT Education/Plan Problem List/Assessment Assessment: Decreased Activ Tolerance, Decreased Safety Aware, Decreased UE Strength, Impaired Cognition Discharge Recommendations Plan/Recommendations: Continue POC Treatment Plan/Plan of Care Patient would benefit from OT for education, treatment and training to promote independence in ADL's, mobility, safety and/or upper extremity function for ADL's. Plan of Care: ADL Retraining, Functional Mobility, UE Funct Exercise/Act Treatment Duration: Apr 27, 2021 Frequency: 5 times per week Estimated Hrs Per Day: .25 hour per day Agreement: Yes Rehab Potential: Fair Time/GCodes Start Time: 09:07 Stop Time: 09:26 Total Time Billed (hr/min): 19 Billed Treatment Time 1 visit-EX 1 (19 min) BRIANNA BARTLETT Apr 23, 2021 09:42
[2021-04-23] MEDS ORDERED: FUROSEMIDE 40 MG/4 ML INJ (LASIX) ONE (11:33)
--- NOTE | 2021-04-23 11:34 | Physical Therapy Daily Note ---
PT Daily Note-Current Subjective Patient agrees to PT. Boyfriend present. Mental Status Patient Orientation: Confused Attachments: Oxygen, Hunter Catheter Transfers SCALE: Activities may be completed with or without assistive devices. 0-Hbmagqlmyw-hqpqwse completes the activity by him/herself with no assistance from a helper. 5-Set-up or Clean-up Assistance-helper sets up or cleans up; patient completes activity. [place] assists only prior to or following the activity. 4-Supervision or Touching Assistance-helper provides verbal cues and/or touching/steadying and/or contact guard assistance as patient completes activity. Assistance may be provided throughout the activity or intermittently. 3-Partial/Moderate Assistance-helper does LESS THAN HALF the effort. [place] lifts, holds or supports trunk or limbs, but provides less than half the effort. 2-Substantial/Maximal Assistance-helper does MORE THAN HALF the effort. [place] lifts or holds trunk or limbs and provides more than half the effort. 5-Xhywfbvqb-ttchks does ALL the effort. Patient does none of the effort to complete the activity. Or, the assistance of 2 or more helpers is required for the patient to complete the activity. If activity was not attempted, code reason: 7-Patient Refused. 9-Not Applicable-not attempted and the patient did not perform the activity before the current illness, exacerbation or injury. 10-Not Attempted due to Environmental Limitations-(lack of equipment, weather restraints, etc.). 88-Not Attempted due to Medical Conditions or Safety Concerns. Lying to Sitting/Side of Bed(Q: 6 Sit to Stand (QC): 4 Chair/Jex-km-[place] Xfer(QC): 4 SBA for OOB mobility Gait Training Does the Patient Walk?: Yes Distance: 500' Walk 10 feet (QC): 4 (SBA) Walk 50 ft with 2 Turns(QC): 4 (SBA) Walk 150 ft (QC): 4 (SBA) Gait Assistive Device: FWW slow and steady with no deviation Assessment Patient is up in recliner with needs met. Patient at SBA LOF with gross motor skills. PT Intermediate Goals Trial Judge Goals PT Trial Judge Goals Time Frame: Apr 25, 2021 Roll Left & Right (QC): 5 Sit to Lying (QC): 5 Lying-Sitting on Side/Bed(QC): 5 Sit to Stand (QC): 5 Chair/Aap-px-Gbopu Xfer(QC): 5 Toilet Transfer (QC): 5 Walk 10 feet (QC): 5 Walk 50ft with 2 Turns (QC): 5 Walk 150 ft (QC): 5 PT Plan Treatment/Plan Treatment Plan: Continue Plan of Care Treatment Plan: Bed Mobility, Education, Functional Activity Tosin, Functional Strength, Gait, Safety, Therapeutic Exercise, Transfers Treatment Duration: Apr 25, 2021 Frequency: 6 times per week Estimated Hrs Per Day: .25 hour per day Patient and/or Family Agrees t: Yes Time/GCodes Time In: 1110 Time Out: 1126 Total Billed Treatment Time: 16 Total Billed Treatment 1 visit FA 16 min ZOHRA HYATT PT Apr 23, 2021 11:34
--- NOTE | 2021-04-23 21:09 | Progress Note ---
Subjective Subjective/Events-last exam Patient stable. Unable to titrate oxygen in the last 24 hrs. Tolerating PO diet and ambulating with PT Review of Systems Pulmonary: Dyspnea, Cough Cardiovascular: Edema; No: Chest Pain, Palpitations Gastrointestinal: No: Nausea, Vomiting, Abdominal Pain, Diarrhea, Constipation Neurological: Weakness, Incoordination Focused Exam Time of Focused Exam: 18:15 Objective Exam Last Set of Vital Signs Vital Signs Date Time Temp Pulse Resp B/P (MAP) Pulse Ox O2 Delivery O2 Flow Rate FiO2 04/23/21 20:10 36.4 74 20 120/57 (78) 94 High Flow N/C 6.00 Capillary Refill : Less Than 3 Seconds I&O Intake and Output 04/23/21 00:00 Intake Total 1725 ml Output Total 2000 ml Balance -275 ml Intake Oral 1725 ml Output Urine Total 2000 ml # Bowel Movements 5 General: Alert, Cooperative, Mild Distress (with moderate activity) Lungs: Other (diminished breath sounds, increased work of breathing, + crackles RLL) Heart: Regular Rate, No Murmurs Abdomen: Normal Bowel Sounds, Soft, No Tenderness, No Masses Extremities: No Tenderness/Swelling, Other (1+ pitting edema) Neuro: Normal Speech, Sensation Intact, Cranial Nerves 3-12 NL Psych/Mental Status: Mental Status NL, Mood NL Results/Procedures Lab Laboratory Tests 04/23/21 05:23: White Blood Count 5.1, Red Blood Count 3.25L, Hemoglobin 9.6L, Hematocrit 31L, Mean Corpuscular Volume 96, Mean Corpuscular Hemoglobin 30, Mean Corpuscular Hemoglobin Concent 31L, Red Cell Distribution Width 15.8H, Platelet Count 231, Mean Platelet Volume 11.8, Immature Granulocyte % (Auto) 1, Neutrophils (%) (Auto) 68, Lymphocytes (%) (Auto) 24, Monocytes (%) (Auto) 6, Eosinophils (%) (Auto) 0, Basophils (%) (Auto) 0, Neutrophils # (Auto) 3.5, Lymphocytes # (Auto) 1.2, Monocytes # (Auto) 0.3, Eosinophils # (Auto) 0.0, Basophils # (Auto) 0.0, Immature Granulocyte # (Auto) 0.1, Sodium Level 139, Potassium Level 4.0, Chloride Level 101, Carbon Dioxide Level 27, Anion Gap 11, Blood Urea Nitrogen 6L, Creatinine 0.47L, Estimat Glomerular Filtration Rate 128, BUN/Creatinine Ratio 13, Glucose Level 83, Calcium Level 8.8, Magnesium Level 1.5L Microbiology 04/16/21 MRSA Screen - Final, Complete MRSA not isolated 04/15/21 Blood Culture - Final, Complete Staph, Coag Neg ([employer]PER) 04/11/21 Urine Culture - Final, Complete Radiology NAME: JOHNSON [facility] REC#: [id number] PT STATUS: ADM IN : 1945 PHYSICIAN: STEPHANIE LUCERO DO ADMIT DATE: 04/11/21 Draft Date of Exam:04/15/21 CHEST 1 VIEW, AP/PA ONLY Clinical indication: Patient with pneumonia. Exam: Portable chest x-ray upright view. Comparisons: Chest x-ray dated 04/11/2021. Findings: There is interval progression of patchy lung infiltrates involving right upper lobe and right lower lung field region. There is minimal left basilar atelectasis. There is interval blunting of the right costophrenic angle region and a small pleural effusion cannot be excluded. There is no pneumothorax. Pulmonary vasculature and cardiac silhouette are within normal limits. There are degenerative spurs involving the thoracic spine. IMPRESSION: 1: There is interval progression of right lung pneumonia. Possible interval development of a small right pleural effusion. Dictated on workstation # [id number] Dict: 04/15/21 1136 Trans: 04/15/21 1137 [facility] [id number] Interpreted by: ISABELLE SANDRA MD Electronically signed by: Assessment/Plan Assessment/Plan (1) Acute on chronic respiratory failure with hypoxemia Status: Acute Assessment & Plan: 2: Patient with recent spinal surgery which likely played a role in PNA, Encouraged OOB with PT, Incentive Spirometer, will continue to titrate oxygen as needed 3: Will continue to titrate as tolerated, Continue to work with PT and use IS 04/22: No titration over the last 24 hrs, continue to work with PT, discussed with patient and son that my recommendation is to go to SNF for continued rehab and close monitoring, their concerns are regarding the families ability to see patient due to covid restrictions, she previously failed HH after back surgery 8/5: Unable to titrate oxygen, Continue PT, family is now wanting HH (2) Acute diastolic congestive heart failure Status: Acute Assessment & Plan: 04/20: Discussed low salt diet and daily weights 04/22: Weight increased 10 Kg over last 48 hrs, dose of lasix given today 04/23: -2 L in last 24 hrs, will repeat lasix in AM (3) Pneumonia Status: Acute Assessment & Plan: 04/21: Continue IV antibiotics Qualifiers: Qualified Codes: J18.9 - Pneumonia, unspecified organism (4) Iron deficiency anemia Status: Acute Assessment & Plan: 04/20: Patient seen by Dr Williamson, anemia is stable 04/21: Will start patient on Iron supplementation (5) Pulmonary hypertension Status: Acute (6) Mixed hyperlipidemia Status: Chronic (7) Essential hypertension Status: Chronic (8) Debility Status: Acute Assessment & Plan: 04/20: Discussed with patient that SNF for IRF would be very beneficial, SW has been working on placement near [place] 04/21: Patient and family now wanting to go home with HH (9) H/O Spinal surgery CK PITTMAN MD Apr 23, 2021 21:09
[2021-04-24 04:14] VITALS: BP 117/60
[2021-04-24 05:28] LABS: POTASSIUM 4.1 MMOL/L (3.6-5.0)
[2021-04-24 05:29] LABS: CALCIUM 9.1 MG/DL (8.5-10.1)
[2021-04-24 05:33] LABS: CREATININE SERUM 0.47 MG/DL (0.60-1.30)
[2021-04-24 05:36] LABS: MAGNESIUM 1.5 MG/DL (1.6-2.4)
[2021-04-24] MEDS: MULTIVIT W/MINERALS TAB (THERAGRAN M) PO SCH (06:08)
[2021-04-24] MEDS: PANTOPRAZOLE 40 MG (PROTONIX) TAB PO SCH (06:08)
[2021-04-24] MEDS: RT-ALBUTEROL/IPRATROPIUM 3 ML (DUONEB) VIAL INH SCH (07:10)
[2021-04-24 07:45] VITALS: BP 138/81
[2021-04-24] MEDS ORDERED: FUROSEMIDE 40 MG/4 ML INJ (LASIX) IVP ONE (08:00)
[2021-04-24] MEDS: FLUoxetine HCL 20 MG (PROzac) CAP PO SCH (08:28)
[2021-04-24] MEDS: VITAMIN D3 25 MCG (1,000 UNITS) TABLET PO SCH (08:29)
[2021-04-24] MEDS: ENOXAPARIN 40 MG/0.4 ML (LOVENOX) SYR SQ SCH (08:29)
[2021-04-24] MEDS: meTOproloL SUCCINATE 50 MG (TOPROL XL) TAB PO SCH (08:29)
[2021-04-24] MEDS: FERROUS SULF 325 MG (IRON) TAB PO SCH (08:29)
[2021-04-24] MEDS: risperiDONE 0.5 MG (RisperDAL) TABLET PO SCH (08:29)
[2021-04-24] MEDS: LORazepam 1 MG (ATIVAN) TAB PO SCH (08:29)
[2021-04-24] MEDS: FENOFIBRATE 134 MG (LOFIBRA) CAPSULE PO SCH (08:29)
[2021-04-24] MEDS: DOCUSATE SODIUM 100 MG (COLACE) CAP PO SCH (08:30)
[2021-04-24] MEDS: ATENOLOL 50 MG (TENORMIN) TAB PO SCH (08:30)
[2021-04-24] MEDS: CYCLOBENZAPRINE 10 MG (FLEXERIL) TAB PO SCH (08:31)
[2021-04-24] MEDS: LACTULOSE SYRUP 10GM/15ML (ENULOSE) 30ML UDC PO SCH (08:31)
[2021-04-24] MEDS: polyethylene glycoL POWDER 17 GM (MIRALAX) PACK PO SCH (08:31)
[2021-04-24] MEDS: SENNA W/DOCUSATE (SENOKOT S) TABLET PO SCH (09:00)
--- NOTE | 2021-04-24 09:28 | Physical Therapy Daily Note ---
PT Daily Note-Current Subjective Patient agrees to PT. Mental Status Patient Orientation: Person, Time, Situation Attachments: Oxygen, Hunter Catheter Transfers SCALE: Activities may be completed with or without assistive devices. 4-Tqioyfmgzi-fxrljwd completes the activity by him/herself with no assistance from a helper. 5-Set-up or Clean-up Assistance-helper sets up or cleans up; patient completes activity. [place] assists only prior to or following the activity. 4-Supervision or Touching Assistance-helper provides verbal cues and/or touching/steadying and/or contact guard assistance as patient completes activity. Assistance may be provided throughout the activity or intermittently. 3-Partial/Moderate Assistance-helper does LESS THAN HALF the effort. Marcella lifts, holds or supports trunk or limbs, but provides less than half the effort. 2-Substantial/Maximal Assistance-helper does MORE THAN HALF the effort. [place] lifts or holds trunk or limbs and provides more than half the effort. 4-Kbnhbqcrs-hsdaer does ALL the effort. Patient does none of the effort to complete the activity. Or, the assistance of 2 or more helpers is required for the patient to complete the activity. If activity was not attempted, code reason: 7-Patient Refused. 9-Not Applicable-not attempted and the patient did not perform the activity before the current illness, exacerbation or injury. 10-Not Attempted due to Environmental Limitations-(lack of equipment, weather restraints, etc.). 88-Not Attempted due to Medical Conditions or Safety Concerns. Roll Left & Right (QC): 6 Sit to Lying (QC): 6 Lying to Sitting/Side of Bed(Q: 6 Sit to Stand (QC): 5 Gait Training Does the Patient Walk?: Yes Distance: 800' Walk 10 feet (QC): 5 Walk 50 ft with 2 Turns(QC): 5 Walk 150 ft (QC): 5 Gait Assistive Device: FWW safe and functional with no deviation/PT assist for O2 tank only Assessment Patient returned to bed with needs met. Patient is currently at PLOF with all gross motor skills. PT Territory Manager General Sales Goals Territory Manager General Sales Goals PT Territory Manager General Sales Goals Time Frame: Apr 25, 2021 Roll Left & Right (QC): 5 Sit to Lying (QC): 5 Lying-Sitting on Side/Bed(QC): 5 Sit to Stand (QC): 5 Chair/Clg-vc-Jeovr Xfer(QC): 5 Toilet Transfer (QC): 5 Walk 10 feet (QC): 5 Walk 50ft with 2 Turns (QC): 5 Walk 150 ft (QC): 5 PT Plan Treatment/Plan Treatment Plan: Continue Plan of Care Treatment Plan: Bed Mobility, Education, Functional Activity Tosin, Functional Strength, Gait, Safety, Therapeutic Exercise, Transfers Treatment Duration: Apr 25, 2021 Frequency: 6 times per week Estimated Hrs Per Day: .25 hour per day Patient and/or Family Agrees t: Yes Time/GCodes Time In: 855 Time Out: 907 Total Billed Treatment Time: 12 Total Billed Treatment 1 visit FA 12 min ZOHRA HYATT PT Apr 24, 2021 09:28
[2021-04-24 11:27] VITALS: BP 108/63
[2021-04-24] MEDS ORDERED: PANT40TA52 PO (12:24)
[2021-04-24] MEDS ORDERED: METO50TA7 PO (12:24)
[2021-04-24] MEDS ORDERED: IPRA3AMP31 INH (12:24)
[2021-04-24] MEDS ORDERED: HYDR-3820 PO (12:24)
[2021-04-24] MEDS ORDERED: FERR325T24 PO (12:24)
--- NOTE | 2021-04-24 12:27 | D/C HH Face to Face Order ---
D/C Face to Face Orders Reconcile Patient Problems Problems Reviewed?: Yes Instructions for Patient Home Health Patient Instructions/FollowUp: PCP 1 week Physician to follow Patient: PCP Discharge Diet for Home: No Restrictions Patient Problems: Hypoxia Weakness GIB Patient Data-Allergies,Ht & Wt Patient Allergies: Coded Allergies: iodine (Unverified Allergy, Intermediate, 12/08/20) Penicillins (Unverified Allergy, Mild, 12/08/20) Home Health Need/Face to Face Date of Face to Face: Apr 24, 2021 Clinical Findings: Generalized weakness and fatigue, Instability, Muscle weakness, Unsteady gait I have seen Pt [id number]: Yes Discharged To: Home Diagnosis/Conditions: Hypoxia Patient is Homebound due to: CognItive deficits, Surekha fall risk due to instabilty, Muscle weakness Homebound Status Due to the above stated illness, injury or surgical procedure (medical condition or diagnosis) and associated clinical findings, the patient is homebound because of his/her inability to leave home except with aid of a supportive device and/or person AND leaving the home requires a considerable and taxing effort or is medically contraindicated. Pt req the following assistanc: Walker Home Health Nursing Orders Home Health Services Order: Nursing Services, [place]-Evaluate & Treat, Physical Therapy-Evaluate & Treat Home Health Infusion Therapy Line Start Date: Apr 15, 2021 Certify Stmt I certify that this patient is under my care and that I, a nurse practitioner or a physician; a geriatric nurse assistant working with me, had a face to face encounter that - meets the physician face to face encounter requirements with this patient as dated. STEPHANIE LUCERO DO Apr 24, 2021 12:27
--- NOTE | 2021-04-24 12:28 | Discharge Summary ---
Discharge Summary Hospital Course Was the Problem List Reviewed?: Yes Problems/Dx: (1) Acute diastolic congestive heart failure Status: Acute (2) Pulmonary hypertension Status: Acute (3) Acute on chronic respiratory failure with hypoxemia Status: Acute (4) Essential hypertension Status: Chronic (5) Mixed hyperlipidemia Status: Chronic Hospital Course Date of Admission: Apr 11, 2021 at 18:09 Admission Diagnosis : Family Physician/Provider: Js Johnson MD Date of Discharge: 04/24/21 Discharge Diagnosis: Acute congestive heart failure Pneumonia COPD Current smoker Hypoxia requiring home oxygen New onset atrial flutter with rapid ventricular response Severe anemia Transfusions required Dementia Severe debility Severe low back pain Hospital Course: Laura is a 75 yo female that presented to the ER on 04/11 with severe weakness, confusion, and lethargy. She appeared pale and debilitated and required an extensive hospital stay. She had recent back surgery on 03/30 and did not feel the same since. Antibiotics were started in the ER to cover pneumonia and UTI sources of sepsis. Chest x ray revealed right perihilar consolidation indicative of pneumonia. UTI was diagnosed on UA. At presentation she had severe symptoms of anemia with a Hgb of 7.3 and 1 unit of blood was given. Throughout her stay, she was transfused a total of 3 units and had a stable hemoglobin of 9.6 on the day of discharge. Many physicians and care members were consulted for her care. Dr. Castellano and Dr. Shukla, in cardiology, monitored hypertension and hyperlipidemia, as well as heart failure. Dr. Lucero managed consultations, medications, and hospital course. Heart failure as well as other health conditions was causing fluid overload and required the use of Lasix to get off some of the fluid. Sepsis was treated with multiple antibiotics during her stay including vancomycin, cefopime, ceftriaxone, and meropenem . Blood cultures revealed staph. An EGD was performed by Dr. Williamson looking for the cause of anemia that showed a hiatal hernia and Rodriguez's esophagus. Atrial flutter was converted to sinus rhythm and an echo showed the ejection fraction to be decreased at 55%. She struggled with confusion throughout her stay but was very aware and quick witted on final day. PT/OT were utilized extensively. Pt remained weak for much of her stay but was able to walk well by the end. was involved in all steps of care and spent the night at the hospital multiple nights.Pt remained hypoxic throughout time at the hospital and required O2 to maintain adequate O2 saturation. Home O2 evaluation was completed and pt was discharged home with O2. Medications were reconciled and sent to the pharmacy. CHANCE AMADOR STUDENT Labs and Pending Lab Test: Laboratory Tests 04/24/21 04:41: Sodium Level 141, Potassium Level 4.1, Chloride Level 99, Carbon Dioxide Level 30, Anion Gap 12, Blood Urea Nitrogen 7, Creatinine 0.47L, Estimat Glomerular Filtration Rate 128, BUN/Creatinine Ratio 15, Glucose Level 90, Calcium Level 9.1, Magnesium Level 1.5L, B-Type Natriuretic Peptide 175.5H Microbiology 04/16/21 MRSA Screen - Final, Complete MRSA not isolated 04/15/21 Blood Culture - Final, Complete Staph, Coag Neg ([employer]CH [employer]ER) 04/11/21 Urine Culture - Final, Complete Home Meds Active Pantoprazole Sodium 40 Mg Tablet.dr 40 Mg PO BIDAC Metoprolol Succinate 50 Mg Tab.er.24h 50 Mg PO DAILY Ferosul (Ferrous Sulfate) 325 Mg Tablet 325 Mg PO BID WITH MEALS Iprat-Albut 0.5-3(2.5) mg/3 ml (Ipratropium/Albuterol Sulfate) 3 Ml Ampul.neb 3 Ml INH RTBID Hydrocodone-Acetamin 10-325 mg (Hydrocodone/Acetaminophen) 1 Each Tablet 1 Ea PO Q6H PRN Reported Vitamin D3 (Cholecalciferol (Vitamin D3)) 25 Mcg Capsule 25 Mcg PO DAILY Prevacid 24Hr (Lansoprazole) 15 Mg Capsule.dr 15 Mg PO DAILY Ativan (Lorazepam) 2 Mg Tablet 1 Mg PO BID WITH MEALS TAKES OF A 2MG TAB Docusate Sodium 100 Mg Capsule 100 Mg PO BID Cyclobenzaprine HCl 10 Mg Tablet 10 Mg PO DAILY Preservision Areds 2 Softgel (Vit C/E/Zn/Coppr/Lutein/Zeaxan) 1 Each Capsule 1 Each PO BID Atorvastatin Calcium 40 Mg Tablet 40 Mg PO HS Risperidone 0.5 Mg Tablet 0.5 Mg PO BID Atenolol 50 Mg Tablet 50 Mg PO DAILY Fluoxetine HCl 20 Mg Capsule 20 Mg PO DAILY Fenofibrate (Fenofibrate Nanocrystallized) 145 Mg Tablet 145 Mg PO DAILY Assessment/Pt Instructions PCP in 1 week Discharge Planning: <30 minutes discharge planning Discharge Instructions Discharge Diet: No Restrictions Discharge Physical Examination Vital Signs Vital Signs Date Time Temp Pulse Resp B/P (MAP) Pulse Ox O2 Delivery O2 Flow Rate FiO2 04/24/21 11:27 36.9 74 20 108/63 (78) 94 High Flow N/C 4.00 General Appearance: No Apparent Distress, WD/WN, Chronically ill Respiratory: Lungs Clear Cardiovascular: Regular Rate, Rhythm Neurologic/Psychiatric: Alert Allergies: Coded Allergies: iodine (Unverified Allergy, Intermediate, 12/08/20) Penicillins (Unverified Allergy, Mild, 12/08/20) Discharge Summary Date of Admission Apr 11, 2021 at 18:09 Date of Discharge Discharge Date: Apr 24, 2021 Admission Diagnosis Assessment: Pneumonia COPD Current smoker Recent lumbar spine surgery Severe anemia requiring 1 unit of blood today UTI Chronic debility Plan: Oxygen IV antibiotics Transfuse SCDs only due to severity of anemia Discharge Diagnosis ICU transfer Patient appears to be very debilitated Supportive care Assessment: Acute respiratory failure Congestive heart failure Paroxysmal atrial fibrillation Pneumonia Severe anemia Altered mental status Plan: DO NOT RESUSCITATE ICU Moved to the floor when able (1) Acute diastolic congestive heart failure Status: Acute Assessment & Plan: Follow-up chest x-ray from this morning did not show any signs of pulmonary edema. She is off diuretics. I suspect she is euvolemic. At this point, her heart failure seems to be resolved. As such, cardiology will sign off. Please call if you have other questions or concerns. (2) Pulmonary hypertension Status: Acute Assessment & Plan: Most likely related to the chronic underlying pulmonary disease accompanied by the heart failure and pneumonia. We may want to consider a follow-up echocardiogram in the next few months after discharge. The patient's and daughter would like to discuss this further and will contact her office if they are interested in making a follow-up visit. (3) Acute on chronic respiratory failure with hypoxemia Status: Acute Assessment & Plan: Most likely related to possible exacerbation of chronic obstructive pulmonary disease with superimposed pneumonia. As above, it appears as though her heart failure has improved. (4) Essential hypertension Status: Chronic Assessment & Plan: Blood pressures for the most part remain well controlled on her outpatient dose of atenolol. (5) Mixed hyperlipidemia Status: Chronic Assessment & Plan: Continue fenofibrate and statin. STEPHANIE LUCERO DO Apr 24, 2021 12:28
--- NOTE | 2021-04-24 12:33 | Occupational Ther Daily Note ---
OT Current Status-Daily Note Subjective Pt alert, sitting in recliner. SO in room. No c/o pain. Agrees to therapy. Mental Status/Objective Patient Orientation: Person, Place, Time, Situation Attachments: Hunter Catheter, IV, Oxygen ADL-Treatment Pt ambulated with SBA to sink to complete oral care independently. Pt then ambulated around room 3x's using FWW with SBA. No LOB noted. Pt able to go from EOB to supine independently. After session, pt lying in bed with call light/phone in reach. All needs met in room. Therapy Code Descriptions/Definitions Functional [place] Measure: 0=Not Assessed/NA 4=Minimal Assistance 1=Total Assistance 5=Supervision or Setup 2=Maximal Assistance 6=Modified [place] 3=Moderate Assistance 7=Complete IndependenceSCALE: Activities may be completed with or without assistive devices. 8-Ylnfkiyuua-unnbxeg completes the activity by him/herself with no assistance from a helper. 5-Set-up or Clean-up Assistance-helper sets up or cleans up; patient completes activity. [place] assists only prior to or following the activity. 4-Supervision or Touching Assistance-helper provides verbal cues and/or touching/steadying and/or contact guard assistance as patient completes activity. Assistance may be provided throughout the activity or intermittently. 3-Partial/Moderate Assistance-helper does LESS THAN HALF the effort. [place] lifts, holds or supports trunk or limbs, but provides less than half the effort. 2-Substantial/Maximal Assistance-helper does MORE THAN HALF the effort. [place] lifts or holds trunk or limbs and provides more than half the effort. 7-Vgzowvfaz-nfbdvb does ALL the effort. Patient does none of the effort to complete the activity. Or, the assistance of 2 or more helpers is required for the patient to complete the activity. If activity was not attempted, code reason: 7-Patient Refused. 9-Not Applicable-not attempted and the patient did not perform the activity before the current illness, exacerbation or injury. 10-Not Attempted due to Environmental Limitations-(lack of equipment, weather restraints, etc.). 88-Not Attempted due to Medical Conditions or Safety Concerns. OT Short Term Goals Short Term Goals Time Frame: Apr 20, 2021 Eatin Oral hygiene: 4 Toileting hygiene: 3 Shower/bathe self: 3 Upper body dressin Lower body dressin Putting on/taking off footwear: 3 OT Intermediate Goals Medical Sales Goals Time Frame: Apr 27, 2021 Eating (QC): 6 Oral Hygiene (QC): 5 Toileting Hygiene (QC): 4 Shower/Bathe Self (QC): 4 Upper Body Dressing (QC): 5 Lower Body Dressing (QC): 4 On/Off Footwear (QC): 4 Additional Goals: 1-Demonstrate ADL Tasks, 2-Verbalize Understanding, 3-ImproveStrength/Tosin 1=Demonstrate adherence to instructed precautions during ADL tasks. 2=Patient will verbalize/demonstrate understanding of assistive devices/modifications for ADL. 3=Patient will improve strength/tolerance for activity to enable patient to perform ADL's. OT Education/Plan Problem List/Assessment Assessment: Decreased Safety Aware, Decreased UE Strength, Impaired Self-Care Skills Discharge Recommendations Plan/Recommendations: Continue POC Treatment Plan/Plan of Care Patient would benefit from OT for education, treatment and training to promote independence in ADL's, mobility, safety and/or upper extremity function for ADL's. Plan of Care: ADL Retraining, Functional Mobility, UE Funct Exercise/Act Treatment Duration: Apr 27, 2021 Frequency: 5 times per week Estimated Hrs Per Day: .25 hour per day Agreement: Yes Rehab Potential: Fair Time/GCodes Start Time: 11:35 Stop Time: 12:00 Total Time Billed (hr/min): 25 Billed Treatment Time 1 visit-FA 1 (10 min) ADL 1 (15 min) BRIANNA BARTLETT Apr 24, 2021 12:33
--- NOTE | 2021-04-24 14:33 | Progress Note ---
CHANCE AMADOR MED STUDENT 04/24/21 1433: Progress Note Laura is a 75 yo female that presented to the ER on 04/11 with severe weakness, confusion, and lethargy. She appeared pale and debilitated and required an extensive hospital stay. She had recent back surgery on 03/30 and did not feel the same since. Antibiotics were started in the ER to cover pneu monia and UTI sources of sepsis. Chest x ray revealed right perihilar consolidation indicative of pneumonia. UTI was diagnosed on UA. At presentation she had severe symptoms of anemia with a Hgb of 7.3 and 1 unit of blood was given. Throughout her stay, she was transfused a total of 3 units and had a stable hemoglobin of 9.6 on the day of discharge. Many physicians and care members were consulted for her care. Dr. Castellano and Dr. Shukla, in cardiology, monitored hypertension and hyperlipidemia, as well as heart failure. Dr. Lucero managed consultations, medications, and hospital course. Heart failure as well as other health conditions was causing fluid overload and required the use of Lasix to get off some of the fluid. Sepsis was treated with multiple antibiotics during her stay including vancomycin, cefopime, ceftriaxone, and meropenem . Blood cultures revealed staph. An EGD was performed by Dr. Williamson looking for the cause of anemia that showed a hiatal hernia and Rodriguez's esophagus. Atrial flutter was converted to sinus rhythm and an echo showed the ejection fraction to be decreased at 55%. She struggled with confusion throughout her stay but was very aware and quick witted on final day. PT/OT were utilized extensively. Pt remained weak for much of her stay but was able to walk well by the end. was involved in all steps of care and spent the night at the hospital multiple nights.Pt remained hypoxic throughout time at the hospital and required O2 to maintain adequate O2 saturation. Home O2 evaluation was completed and pt was discharged home with O2. Medications were reconciled and sent to the pharmacy. STEPHANIE LUCERO DO 04/24/21 [id number]: Supervisory-Addendum Brief Verification & Attestation Participated in pt care: history, MDM, physical Personally performed: exam, history, MDM, supervision of care Care discussed with: Medical Student Procedures: n/a Results interpretation: Verified all documentation Verification and Attestation of Medical Student E/M Service A medical student performed and documented this service in my presence. I reviewed and verified all information documented by the medical student and made modifications to such information, when appropriate. I personally performed the physical exam and medical decision making. Stephanie Lucero, Apr 24, 2021,21:47 CHANCE AMADOR MED STUDENT Apr 24, 2021 14:33 STEPHANIE LUCERO DO Apr 24, 2021 21:47
[2021-04-24 15:54] VITALS: BP 131/69
--- NOTE | 2021-04-24 20:12 | Physician Query Clarification ---
Physician Query-General Query to Physician: The medical record reflects the following clinical scenario: The patient, in the setting of History/Risk factors, Pneumonia, UTI and debility Clinical Findings Admission VS/LABS: HR 88, RR 20, BP 130/66, SpO2 93% sat on room air T 38.7 WBC 13.6, LA 1.45 Treatment Admission: LR 2L, Ceftriaxone IV, Cefepime IV, (in first 24 hours)Later added Vancomycin IV and Meropenem IV Question: Sepsis was documented on the H and P and daily progress notes from 04/12 to 04/16. No documentation of sepsis resolved. Do you agree with the impression of Sepsis as a valid Diagnosis and the reason for admission? 1. Yes; will document Sepsis was a valid Dx and present on admission, now resolved in the Progress Notes/Discharge summary 2. No; Sepsis was ruled out will continue current documentation in the Progress Notes/Discharge Summary 3. Other; will document explanation of clinical findings 4. Clinically undetermined; no explanation for clinical findings Please clarify and document your clinical opinion in the Progress Notes and Discharge Summary including the definitive and/or presumptive diagnosis, (suspected or probable), related to the above clinical findings. Please include clinical findings supporting your diagnosis. In responding to this query, please exercise your independent professional judgment. The purpose of this communication is to more accurately reflect the complexity of your patients condition. The fact that a question is asked does not imply that any particular answer is desired or expected. Please remember a lack of response to the above will prompt a phone page by CDI/coding staff Thank you for timely response to this clarification. Mary Villa MSN, RN Clinical Plc Engineer [phone] [email or web address] PHYSICIAN RESPONSE: Based on the clinical findings in the record, please respond to the query above on this document as an addendum. Physician Response: Physician Response yes If you have questions please contact: Process Technician: Ext: Thank you for your time and cooperation. Clinical Plc Engineer/Process Technician This is a permanent part of the medical record MARY VILLA Apr 24, 2021 20:11 STEPHANIE LUCERO DO Apr 27, 2021 21:08
== END 2021-04-24 18:00 | disposition home health service (06) | DRG 871 ==
LOC: EDUNIT# 16:00 → ER 16:04 → 4TH 18:09 → CSD 04-15 13:39 → ICU 04-15 16:48 → 4TH 04-17 11:07
PROVIDERS: ADMIT Internal Medicine; ATTEND Internal Medicine
PROC: 0DJ08ZZ Inspection of Upper Intestinal Tract, Via Natural or Artificial Opening Endoscopic (ICD-10-PCS; principal; 2021-04-15 16:29)
DX: A41.9 Sepsis, unspecified organism (principal); J18.9 Pneumonia, unspecified organism; J96.01 Acute respiratory failure with hypoxia; I50.31 Acute diastolic (congestive) heart failure; J44.0 Chronic obstructive pulmonary disease with (acute) lower respiratory infection; N39.0 Urinary tract infection, site not specified; I48.92 Unspecified atrial flutter; D68.9 Coagulation defect, unspecified; J44.1 Chronic obstructive pulmonary disease with (acute) exacerbation; I11.0 Hypertensive heart disease with heart failure; K59.00 Constipation, unspecified; R53.81 Other malaise; F41.9 Anxiety disorder, unspecified; F32.9 Major depressive disorder, single episode, unspecified; I48.0 Paroxysmal atrial fibrillation; R41.0 Disorientation, unspecified; Z20.822 Contact with and (suspected) exposure to COVID-19; I27.20 Pulmonary hypertension, unspecified; D50.9 Iron deficiency anemia, unspecified; F03.90 Unspecified dementia, unspecified severity, without behavioral disturbance, psychotic disturbance, mood disturbance, and anxiety; M54.9 Dorsalgia, unspecified; K22.70 Barrett's esophagus without dysplasia; K44.9 Diaphragmatic hernia without obstruction or gangrene; E78.2 Mixed hyperlipidemia; Z87.891 Personal history of nicotine dependence; Z88.0 Allergy status to penicillin; Z91.041 Radiographic dye allergy status
CPT/HCPCS: 36410; 36415; 71045; 71046; 76937; 80048; 80053; 80202; 81000; 82274; 82607; 82728; 82746; 82805; 83540; 83550; 83605; 83735; 83880; 84132; 84145; 84443; 85007; 85025; 85027; 85045; 85610; 85730; 86850; 86900; 86901; 86920; 87040; 87081; 87088; 87636; 93005; 93306; 94640; 94664; 94760; 94761; 96361; 96374; 96375

== ENCOUNTER → 2021-06-08 | Outpatient (CLI) | payer MEDICARE ==
[~2021-06-08] MED LIST changes: +CHOL10007 PO; +CYCL10TA9 PO; +DOCU100C37 PO; +FERR325T24 PO; +HYDR-3820 PO; +IPRA3AMP31 INH; +LANS15CA PO; +LORA-407 PO; +METO50TA7 PO; +PANT40TA52 PO; +RT-ALBUTEROL SULF 2.5 MG/3 ML PRE-MIX VIAL INH ONE; +VIT1CAPS44 PO
== END ==
LOC: RT 11:00
PROVIDERS: ATTEND Nurse Practitioner Family
DX: I50.31 Acute diastolic (congestive) heart failure (principal); I27.20 Pulmonary hypertension, unspecified
CPT/HCPCS: 94060; 94726; 94729

== ENCOUNTER 2021-06-29 06:45 | Outpatient (CLI) | payer MEDICARE ==
[~2021-06-29] VITALS: Ht 157.5 cm; Wt 63.8 kg
[~2021-06-29 06:45] MED LIST changes: -RT-ALBUTEROL SULF 2.5 MG/3 ML PRE-MIX VIAL INH ONE
[2021-06-29] MEDS ORDERED: GABA-486 PO (14:55)
[2021-06-29] MEDS ORDERED: BUPR150T28 PO (14:55)
== END 2021-06-30 08:42 | disposition home or self-care (01) ==
LOC: PREOP 06:45
PROVIDERS: ATTEND Surgery
DX: Z01.818 Encounter for other preprocedural examination (principal)

== ENCOUNTER → 2021-07-03 | Outpatient (CLI) | payer MEDICARE ==
[~2021-07-03] MED LIST changes: +BUPR150T28 PO; +GABA-486 PO
== END ==
LOC: LAB FS 10:00
PROVIDERS: ATTEND Surgery
DX: Z01.812 Encounter for preprocedural laboratory examination (principal); K22.70 Barrett's esophagus without dysplasia; Z20.822 Contact with and (suspected) exposure to COVID-19
CPT/HCPCS: 87635

== ENCOUNTER 2021-07-06 08:45 | Day surgery (SDC) | payer MEDICARE ==
[~2021-07-06] VITALS: Ht 158 cm; Wt 64.0 kg
[2021-07-06] MEDS ORDERED: LACTATED RINGERS 1,000 ML IV ONE (08:49)
[2021-07-06] MEDS ORDERED: LACTATED RINGERS 1,000 ML IV STA (08:52)
[2021-07-06] MEDS ORDERED: HURRICAINE EXT TUBE (BENZOCAINE) XX PRN (09:00)
--- NOTE | 2021-07-06 09:16 | Progress Note-Pre Operative ---
Pre-Operative Progress Note H&P Reviewed The H&P was reviewed, patient examined and no changes noted. Time Seen by Provider: 09:15 Date H&P Reviewed: Jul 06, 2021 Time H&P Reviewed: 09:15 Pre-Operative Diagnosis: HX of Rodriguez's CHAS CHAN DO Jul 06, 2021 09:16
[2021-07-06 09:25] VITALS: BP 142/76
[2021-07-06] MEDS ORDERED: proPOfol 200 MG/20 ML (DIPRIVAN) VIAL IV ONE (10:20)
[2021-07-06 10:45] VITALS: BP 108/52
--- NOTE | 2021-07-06 10:48 | Progress Note-Post Operative ---
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 She was administered IV sedation by the BACK TUFTER who then monitored vitals the entire time, heart rate, blood pressure and pulse ox and the scope was inserted down the mouth through the esophagus into the stomach. On the way down, noted severe esophagitis: looked like Rodriguez's and took a picture. Pushed into the stomach, pushed past the antrum into the duodenum. Duodenum looked good. Pulled back and retroflexed the scope; saw moderate hiatal hernia and took a picture of this. Then did a biopsy of the stomach and then pulled the scope into the GE junction, took another picture of the hiatal hernia and then did two biopsies of the GE junction. Pushed the scope back into the stomach, suctioned all the air out of the stomach. At this point pulled the scope up the esophagus and out the mouth. The patient tolerated the procedure, and she recovered in endoscopy suite. Anesthesia Type IV sedation by BACK TUFTER Estimated Blood Loss Estimated blood loss (mL): scant Specimens/Packing Specimens Removed body of stomach bx GE jxn bx x 2 CHAS CHAN DO Jul 06, 2021 10:48
--- NOTE | 2021-07-06 10:49 | Endoscopy Discharge Instruct ---
Endo Procedure/Findings Findings 1.: Rodriguez's Esophagus 2.: Hiatal Hernia Discharge Instructions - Activity: You might feel a little sleepy until tomorrow. This is due to the medicine you received to relax you. Until tomorrow, you should: NOT drive a car, operate machinery or power tools. NOT drink any alcoholic beverages. NOT make any important decisions or sign importortant papers. Do not return to work until tomorrow, unless otherwise instructed. Resume previous activities tomorrow. Diet: Start by taking liquids. If you tolerate liquids, advance to solid food. 2.: EGD in 1 year Notify Physician - If you experience excessive bleeding, unusual abdominal pain, fever, or chest pain, contact your doctor immediately. CHAS CHAN DO Jul 06, 2021 10:49
[2021-07-06 10:50] VITALS: BP 103/51
[2021-07-06 10:55] VITALS: BP 112/56
[2021-07-06 11:38] VITALS: BP 135/79
--- NOTE | 2021-07-06 12:03 | Anesthesia-General Post-Op ---
MAC Patient Condition Mental Status/LOC: Same as Preop Cardiovascular: Satisfactory Nausea/Vomiting: Absent Respiratory: Satisfactory Pain: Controlled Complications: Absent Post Op Complications Complications None Follow Up Care/Instructions Patient Instructions None needed. Anesthesiology Discharge Order Discharge Order Patient is doing well, no complaints, stable vital signs, no apparent adverse anesthesia problems. No complications reported per nursing. RADHA STACK CRNA Jul 06, 2021 12:03
== END 2021-07-06 11:38 | disposition home or self-care (01) ==
LOC: ENDO 08:45
PROVIDERS: ATTEND Surgery
DX: K22.70 Barrett's esophagus without dysplasia (principal); K44.9 Diaphragmatic hernia without obstruction or gangrene; E78.2 Mixed hyperlipidemia; I11.0 Hypertensive heart disease with heart failure; J44.9 Chronic obstructive pulmonary disease, unspecified; I50.32 Chronic diastolic (congestive) heart failure; I27.20 Pulmonary hypertension, unspecified; I48.92 Unspecified atrial flutter; Z87.891 Personal history of nicotine dependence; Z79.899 Other long term (current) drug therapy; Z88.0 Allergy status to penicillin; Z91.048 Other nonmedicinal substance allergy status

== ENCOUNTER → 2021-09-01 | Outpatient (CLI) | payer MEDICARE ==
[~2021-09-01] MED LIST changes: +CYCL10TA25 PO; -CYCL10TA9 PO; -FLUO20CA46 PO; +FLUO20CA48 PO
== END ==
LOC: CARD 13:00
PROVIDERS: ATTEND Internal Medicine Cardiovascular Disease
DX: I31.3 Pericardial effusion (noninflammatory) (principal); I51.7 Cardiomegaly; I27.20 Pulmonary hypertension, unspecified
CPT/HCPCS: 93306